=== PATIENT | female | born 1975 | race Caucasian/White ===

== ENCOUNTER → 2019-09-21 12:43 | Outpatient (BNVA) | payer MEDICAID, SELFPAY | PROVIDERS: Family Provider Internal Medicine; Visit Provider Psychiatry & Neurology Psychiatry | DX: F43.12 Post-traumatic stress disorder, chronic (principal); F33.2 Major depressive disorder, recurrent severe without psychotic features; F41.1 Generalized anxiety disorder | CPT/HCPCS: 99205 ==

== ENCOUNTER → 2019-10-19 07:51 | Outpatient (BNVA) | payer MEDICAID, SELFPAY | PROVIDERS: Family Provider Internal Medicine; Visit Provider Nurse Practitioner Psychiatric/Mental Health | DX: F43.12 Post-traumatic stress disorder, chronic (principal); F41.1 Generalized anxiety disorder; F33.1 Major depressive disorder, recurrent, moderate | CPT/HCPCS: 99213 ==

== ENCOUNTER 2019-11-09 13:49 | Outpatient (CLI) | payer MEDICAID, SELFPAY ==
--- NOTE | 2019-11-09 14:00 | XRR_ITS ---
PROCEDURE INFORMATION: Exam: XR Left Humerus Exam date and time: 11/09/2019 2:25 PM Age: 43 years old Clinical indication: Pain; Upper arm; Left; Additional info: Left arm pain TECHNIQUE: Imaging protocol: XR Left humerus Views: 2 or more views. COMPARISON: No relevant prior studies available. FINDINGS: Bones/joints: Unusual contour involving the greater tuberosity. A nondisplaced fracture is not excluded. The remainder of the humerus is intact. No dislocation. Soft tissues: No acute soft tissue abnormality. XR/[place] [id number] IMPRESSION: Possible proximal humeral fracture. Consider further evaluation with CT scan.
== END 2019-11-09 13:50 | disposition home or self-care (01) ==
LOC: RAD 13:53
PROVIDERS: PCP Internal Medicine; Visit Provider Nurse Practitioner Family
DX: M79.602 Pain in left arm (principal)
CPT/HCPCS: 73060

== ENCOUNTER → 2019-11-18 07:58 | Outpatient (BNVA) | payer MEDICAID, SELFPAY | PROVIDERS: PCP Internal Medicine; Visit Provider Nurse Practitioner Psychiatric/Mental Health | DX: F33.1 Major depressive disorder, recurrent, moderate (principal); F41.1 Generalized anxiety disorder; F43.12 Post-traumatic stress disorder, chronic | CPT/HCPCS: 99213 ==

== ENCOUNTER 2019-11-24 10:07 | Outpatient (CLI) | payer MEDICAID, SELFPAY ==
--- NOTE | 2019-11-24 10:26 | XRR_ITS ---
PROCEDURE INFORMATION: Exam: XR Left Shoulder Exam date and time: 11/24/2019 10:50 AM Age: 43 years old Clinical indication: Condition or disease; Patient HX: Follow up left proximal humerus FX. Previous XR 11/09/19 TECHNIQUE: Imaging protocol: XR Left shoulder. Views: AP internal and external rotation views, and a scapular Y view of the left shoulder. COMPARISON: [place] [id number] 11/09/2019 2:23:52 PM FINDINGS: Bones/joints: Posterior periosteal reaction at the proximal humeral greater tuberosity adjacent to the previously demonstrated mildly comminuted and mildly depressed fracture of the tuberosity. Normal alignment. Soft tissues: Normal. XR/XR shoulder LT min 2V* [id number] IMPRESSION: Healing proximal humeral fracture.
== END 2019-11-24 10:08 | disposition home or self-care (01) ==
PROVIDERS: PCP Internal Medicine; Visit Provider Specialist
DX: S42.202A Unspecified fracture of upper end of left humerus, initial encounter for closed fracture (principal); X58.XXXA Exposure to other specified factors, initial encounter
CPT/HCPCS: 73030

== ENCOUNTER → 2019-12-15 08:16 | Outpatient (BNVA) | payer MEDICAID, SELFPAY | PROVIDERS: PCP Internal Medicine; Visit Provider Counselor Professional | DX: Z63.4 Disappearance and death of family member (principal); F43.12 Post-traumatic stress disorder, chronic; F33.1 Major depressive disorder, recurrent, moderate; F41.1 Generalized anxiety disorder | CPT/HCPCS: 90832 ==

== ENCOUNTER → 2019-12-16 09:21 | Outpatient (BNVA) | payer MEDICAID, SELFPAY | PROVIDERS: PCP Internal Medicine; Visit Provider Nurse Practitioner Psychiatric/Mental Health | DX: F33.1 Major depressive disorder, recurrent, moderate (principal); F41.1 Generalized anxiety disorder; F43.12 Post-traumatic stress disorder, chronic | CPT/HCPCS: 99212 ==

== ENCOUNTER → 2019-12-27 11:47 | Outpatient (BNVA) | payer MEDICAID, SELFPAY | PROVIDERS: PCP Internal Medicine; Visit Provider Specialist | DX: S42.202D Unspecified fracture of upper end of left humerus, subsequent encounter for fracture with routine healing (principal); X58.XXXD Exposure to other specified factors, subsequent encounter | CPT/HCPCS: 73030 ==

== ENCOUNTER → 2020-01-05 14:16 | Outpatient (BNVA) | payer MEDICAID, SELFPAY | PROVIDERS: PCP Internal Medicine; Visit Provider Specialist | DX: S42.202A Unspecified fracture of upper end of left humerus, initial encounter for closed fracture (principal); M25.561 Pain in right knee; M25.562 Pain in left knee | CPT/HCPCS: 73560; 73565 ==

== ENCOUNTER 2020-01-24 17:57 | Emergency (ER) | payer MEDICAID, SELFPAY ==
[2020-01-24] VITALS (8 sets, daily range): BP systolic 137–170; BP diastolic 72–106; PULSE 60–69; RESP 14–16; TEMP 36.7; O2SAT 92–96; BMI 40.8
[2020-01-24 18:32] LABS: ABG PCO2 50.8 mmHg (35-45); ABG PH Result 7.37 (7.35-7.45); Arterial Blood Gas Hematocrit 39.6 % (37-47); Base Excess ABG 3.2 mmol/L (-2.0-2.0); Blood Gas Allen Test Pos; Blood Gas Operator Identificat CAK; Blood Gas Sample Site Radial, left; Blood Gas Sample Type Arterial; HCO3 ABG 29.4 mmol/L (22-26); Oxygen Device ROOM AIR; PO2 ABG 65.9 mmHg (80.0-100.0)
--- NOTE | 2020-01-24 18:43 | W.ED.GENADLT ---
Documented by User: Forrest Lewis DO 01/25/20 06:56 HPI - General Adult General: Chief complaint: General Medical Stated complaint: HIGH BS/AMS Time Seen by Provider: 01/24/20 18:30 History of Present Illness: HPI narrative: 44-year-old female presents complaining of 2 days of generally not feeling well poor appetite cough she is not had a fever has had a headache and myalgias. Interestingly she tested positive exam almost exactly to the day 3 months ago on what I presume was a PCR COVID test. She has had some mild cough although some nonproductive. She has not had any diarrhea. She not been around any other positives that she knows of. Onset (ago): day(s) Severity: moderate Quality: aching Relieving factors: none Exacerbating factors: none Associated symptoms: Reports cough, decreased appetite, dyspnea, malaise, nausea and weakness; Deny chest pain, confusion, fevers/chills, headache(s), rash, palpitations, seizures, short of breath, syncope or vomiting Treatments prior to arrival: none Review of Systems Const: Reports: malaise ENMT: Denies: throat pain, ear or mastoid pain, nasal discharge or nasal congestion Card: Denies: chest pain, palpitations or syncope Resp: Reports: dyspnea GI: Reports: nausea; Denies: vomiting : Denies: flank pain, difficulty voiding, dysuria, urinary frequency or urinary urgency Skin/Breast: Denies: rash or pruritus Neuro: Denies: headache(s) or confusion PFSH ED PFSH: Medical History Chronic post-traumatic stress disorder (PTSD) Generalized anxiety disorder See subjective information below. Major depressive disorder, recurrent, moderate See subjective information below. Social History Smoking and tobacco status: current every day smoker cigarettes Packs smoked per day: 1 Years cigarettes smoked: 20 Quit status (tobacco): not considering quitting Second hand smoke exposure: No Current gender identity: Female Physical Exam Const: COMMON NORMALS: no acute distress GENERAL APPEARANCE: cooperative and comfortable ORIENTATION/CONSCIOUSNESS: Yes awake, Yes oriented to person, Yes oriented to place and Yes oriented to time HENMT: COMMON NORMALS: normocephalic, atraumatic and hearing grossly normal bilaterally HEAD & SCALP: normocephalic and atraumatic Eye: COMMON NORMALS: Equal, round and reactive pupils present, EOMs intact bilaterally, conjunctivae normal and no scleral icterus CONJUNCTIVA: Yes conjunctivae normal PUPIL: Yes Equal, round and reactive pupils present Neck/C-Spine: COMMON NORMALS: full ROM, no lymphadenopathy, supple and no JVD Lymph: LYMPHATIC: no lymphadenopathy noted and no lymphedema noted Resp: COMMON NORMALS: normal respiratory effort, No retractions, No use of accessory muscles and clear to auscultation bilaterally AUSCULTATION: clear to auscultation bilaterally Cardio: COMMON NORMALS: no JVD, regular rate, regular rhythm and No murmurs present (Cardio) RATE: regular rate RHYTHM: regular rhythm GI: COMMON NORMALS: Soft to palpation and No hepatosplenomegaly present AUSCULTATION: Yes normoactive bowel sounds PALPATION: Yes Soft to palpation, No Tenderness to palpation present (GI), No Guarding due to palpation present (GI) and Yes No hepatosplenomegaly present Extremity: COMMON NORMALS: normal to inspection, capillary refill normal, no clubbing, cyanosis or edema, no calf tenderness and no pedal edema Neuro: SENSORIUM/ORIENTATION: Yes oriented to person, Yes oriented to place and Yes oriented to time Skin: COMMON NORMALS: no rashes or lesions noted GENERAL SKIN EXAM: no rashes or lesions noted Course Vital Signs: Vital signs: Vital Signs Temperature 98.0 F 01/24/20 18:17 Pulse Rate 62 01/25/20 01:03 Respiratory Rate 14 01/25/20 01:03 Blood Pressure 131/95 01/25/20 01:03 Pulse Oximetry 96 01/25/20 01:03 MDM - General Adult MDM Narrative: Medical decision making narrative: Care turned over to Dr. Huizar at change of shift Lab Data: Labs: Lab Results 01/24/20 01/24/20 01/24/20 Range/Units 18:19 18:21 19:00 WBC 6.8 (4.0-10.0) 10^3/ uL RBC 4.83 (4.1-5.3) 10^6/u L Hgb 13.4 (11.5-15.3) g/dL Hct 42.2 (37.0-47.0) % MCV 87.4 (81-99) fL MCH 27.7 L (28.0-34.0) pg MCHC 31.8 (30.0-36.0) g/dL RDW 13.7 (12.1-15.1) % Plt Count 126 L (130-400) 10^3/c mm MPV 13.0 H (7.4-10.4) fL Neut % (Auto) 57.7 % Lymph % (Auto) 30.6 % Bucks % (Auto) 5.1 % Eos % (Auto) 5.8 % Baso % (Auto) 0.7 % Neut # (Auto) 3.94 (1.8-7.7) 10^3/u L Lymph # (Auto) 2.1 (0.8-4.8) 10^3/u L Bucks # (Auto) 0.4 (0.2-0.9) 10^3/u L Eos # (Auto) 0.4 (0.0-0.8) 10^3/u L Baso # (Auto) 0.1 (0.0-0.1) 10^3/u L Nucleated RBC % (a uto) 0 % Nucleated RBCs # 0.0 /100WBC Specimen Type Arterial Sample Site Radial, left ABG pH 7.37 (7.35-7.45) ABG pCO2 50.8 H (35-45) mmHg ABG pO2 65.9 L (80.0-100.0) mmH g ABG HCO3 29.4 H (22-26) mmol/L ABG Base Excess 3.2 H (-2.0-2.0) mmol/ L Joshua Test Pos Hematocrit 39.6 (37-47) % O2 Delivery Device Room air FiO2 21.0 % Reproduction Specialist ID Cak Sodium (136-145) mmol/L Potassium (3.5-5.1) mmol/L Chloride (98-107) mmol/L Carbon Dioxide (22-29) mmol/L Anion Gap (5-19) BUN (6-20) mg/dL Creatinine (0.5-0.9) mg/dL GFR Calculation (90-130) mL/min Glucose (65-115) mg/dL POC Glucose 316 (70-110) mg/dL Calculated Osmolal ity (285-295) mOsm/k g Lactic Acid (0.5-2.2) mmol/L Calcium (8.5-10.5) mg/dL Total Bilirubin (0.15-1.2) mg/dL AST (0-32) U/L ALT (0-33) U/L Alkaline Phosphata se (35-105) IU/L Lactate Dehydrogen ase (135-214) U/L C-Reactive Protein (0.0-4.9) mg/L Total Protein (6.6-8.7) g/dL Albumin (3.5-5.2) g/dL Globulin (1.3-4.6) g/dL Procalcitonin (0-0.5) ng/mL Urine Color (Yellow) Urine Appearance (CLEAR) Urine pH (5-7) Ur Specific Gravit y (1.005-1.030) Urine Protein (Negative) Urine Glucose (UA) (Normal) Urine Ketones (Negative) Urine Blood (Negative) Urine Nitrate (Negative) Urine Bilirubin (Negative) Urine Urobilinogen (Negative) mg/dL Ur Leukocyte Kaylan ase (Negative) Urine RBC (0-2) /hpf Urine WBC (0-5) /hpf Ur Squamous Epith Cells (0-5) /hpf Amorphous Sediment Urine Bacteria (NONE) /hpf Urine Mucus /hpf Serum Ketones (Negative) Influenza Type A A g (Negative) Influenza Type B A g (Negative) SARS-CoV-2 Ag (Rap id) (Negative) 01/24/20 01/24/20 01/24/20 Range/Units 19:00 19:00 20:27 WBC (4.0-10.0) 10^3/ uL RBC (4.1-5.3) 10^6/u L Hgb (11.5-15.3) g/dL Hct (37.0-47.0) % MCV (81-99) fL MCH (28.0-34.0) pg MCHC (30.0-36.0) g/dL RDW (12.1-15.1) % Plt Count (130-400) 10^3/c mm MPV (7.4-10.4) fL Neut % (Auto) % Lymph % (Auto) % Bucks % (Auto) % Eos % (Auto) % Baso % (Auto) % Neut # (Auto) (1.8-7.7) 10^3/u L Lymph # (Auto) (0.8-4.8) 10^3/u L Bucks # (Auto) (0.2-0.9) 10^3/u L Eos # (Auto) (0.0-0.8) 10^3/u L Baso # (Auto) (0.0-0.1) 10^3/u L Nucleated RBC % (a uto) % Nucleated RBCs # /100WBC Specimen Type Sample Site ABG pH (7.35-7.45) ABG pCO2 (35-45) mmHg ABG pO2 (80.0-100.0) mmH g ABG HCO3 (22-26) mmol/L ABG Base Excess (-2.0-2.0) mmol/ L Joshua Test Hematocrit (37-47) % O2 Delivery Device FiO2 % Reproduction Specialist ID Sodium 133 L (136-145) mmol/L Potassium 4.2 (3.5-5.1) mmol/L Chloride 95 L (98-107) mmol/L Carbon Dioxide 27 (22-29) mmol/L Anion Gap 15.2 (5-19) BUN 13 (6-20) mg/dL Creatinine 0.7 (0.5-0.9) mg/dL GFR Calculation 90.5 (90-130) mL/min Glucose 311 H (65-115) mg/dL POC Glucose 286 (70-110) mg/dL Calculated Osmolal ity 284 L (285-295) mOsm/k g Lactic Acid 1.3 (0.5-2.2) mmol/L Calcium 9.1 (8.5-10.5) mg/dL Total Bilirubin 0.3 (0.15-1.2) mg/dL AST 32 (0-32) U/L ALT 30 (0-33) U/L Alkaline Phosphata se 179 H (35-105) IU/L Lactate Dehydrogen ase 252 H (135-214) U/L C-Reactive Protein 13.9 H (0.0-4.9) mg/L Total Protein 7.6 (6.6-8.7) g/dL Albumin 3.8 (3.5-5.2) g/dL Globulin 3.8 (1.3-4.6) g/dL Procalcitonin 0.06 (0-0.5) ng/mL Urine Color (Yellow) Urine Appearance (CLEAR) Urine pH (5-7) Ur Specific Gravit y (1.005-1.030) Urine Protein (Negative) Urine Glucose (UA) (Normal) Urine Ketones (Negative) Urine Blood (Negative) Urine Nitrate (Negative) Urine Bilirubin (Negative) Urine Urobilinogen (Negative) mg/dL Ur Leukocyte Kaylan ase (Negative) Urine RBC (0-2) /hpf Urine WBC (0-5) /hpf Ur Squamous Epith Cells (0-5) /hpf Amorphous Sediment Urine Bacteria (NONE) /hpf Urine Mucus /hpf Serum Ketones Negative (Negative) Influenza Type A A g (Negative) Influenza Type B A g (Negative) SARS-CoV-2 Ag (Rap id) (Negative) 01/24/20 01/24/20 01/24/20 Range/Units 20:44 21:58 22:38 WBC (4.0-10.0) 10^3/ uL RBC (4.1-5.3) 10^6/u L Hgb (11.5-15.3) g/dL Hct (37.0-47.0) % MCV (81-99) fL MCH (28.0-34.0) pg MCHC (30.0-36.0) g/dL RDW (12.1-15.1) % Plt Count (130-400) 10^3/c mm MPV (7.4-10.4) fL Neut % (Auto) % Lymph % (Auto) % Bucks % (Auto) % Eos % (Auto) % Baso % (Auto) % Neut # (Auto) (1.8-7.7) 10^3/u L Lymph # (Auto) (0.8-4.8) 10^3/u L Bucks # (Auto) (0.2-0.9) 10^3/u L Eos # (Auto) (0.0-0.8) 10^3/u L Baso # (Auto) (0.0-0.1) 10^3/u L Nucleated RBC % (a uto) % Nucleated RBCs # /100WBC Specimen Type Sample Site ABG pH (7.35-7.45) ABG pCO2 (35-45) mmHg ABG pO2 (80.0-100.0) mmH g ABG HCO3 (22-26) mmol/L ABG Base Excess (-2.0-2.0) mmol/ L Joshua Test Hematocrit (37-47) % O2 Delivery Device FiO2 % Reproduction Specialist ID Sodium (136-145) mmol/L Potassium (3.5-5.1) mmol/L Chloride (98-107) mmol/L Carbon Dioxide (22-29) mmol/L Anion Gap (5-19) BUN (6-20) mg/dL Creatinine (0.5-0.9) mg/dL GFR Calculation (90-130) mL/min Glucose (65-115) mg/dL POC Glucose 384 (70-110) mg/dL Calculated Osmolal ity (285-295) mOsm/k g Lactic Acid (0.5-2.2) mmol/L Calcium (8.5-10.5) mg/dL Total Bilirubin (0.15-1.2) mg/dL AST (0-32) U/L ALT (0-33) U/L Alkaline Phosphata se (35-105) IU/L Lactate Dehydrogen ase (135-214) U/L C-Reactive Protein (0.0-4.9) mg/L Total Protein (6.6-8.7) g/dL Albumin (3.5-5.2) g/dL Globulin (1.3-4.6) g/dL Procalcitonin (0-0.5) ng/mL Urine Color (Yellow) Urine Appearance (CLEAR) Urine pH (5-7) Ur Specific Gravit y (1.005-1.030) Urine Protein (Negative) Urine Glucose (UA) (Normal) Urine Ketones (Negative) Urine Blood (Negative) Urine Nitrate (Negative) Urine Bilirubin (Negative) Urine Urobilinogen (Negative) mg/dL Ur Leukocyte Kaylan ase (Negative) Urine RBC (0-2) /hpf Urine WBC (0-5) /hpf Ur Squamous Epith Cells (0-5) /hpf Amorphous Sediment Urine Bacteria (NONE) /hpf Urine Mucus /hpf Serum Ketones (Negative) Influenza Type A A g Negative (Negative) Influenza Type B A g Negative (Negative) SARS-CoV-2 Ag (Rap id) Negative (Negative) 01/24/20 01/25/20 Range/Units 23:23 00:13 WBC (4.0-10.0) 10^3/ uL RBC (4.1-5.3) 10^6/u L Hgb (11.5-15.3) g/dL Hct (37.0-47.0) % MCV (81-99) fL MCH (28.0-34.0) pg MCHC (30.0-36.0) g/dL RDW (12.1-15.1) % Plt Count (130-400) 10^3/c mm MPV (7.4-10.4) fL Neut % (Auto) % Lymph % (Auto) % Bucks % (Auto) % Eos % (Auto) % Baso % (Auto) % Neut # (Auto) (1.8-7.7) 10^3/u L Lymph # (Auto) (0.8-4.8) 10^3/u L Bucks # (Auto) (0.2-0.9) 10^3/u L Eos # (Auto) (0.0-0.8) 10^3/u L Baso # (Auto) (0.0-0.1) 10^3/u L Nucleated RBC % (a uto) % Nucleated RBCs # /100WBC Specimen Type Sample Site ABG pH (7.35-7.45) ABG pCO2 (35-45) mmHg ABG pO2 (80.0-100.0) mmH g ABG HCO3 (22-26) mmol/L ABG Base Excess (-2.0-2.0) mmol/ L Joshua Test Hematocrit (37-47) % O2 Delivery Device FiO2 % Reproduction Specialist ID Sodium (136-145) mmol/L Potassium (3.5-5.1) mmol/L Chloride (98-107) mmol/L Carbon Dioxide (22-29) mmol/L Anion Gap (5-19) BUN (6-20) mg/dL Creatinine (0.5-0.9) mg/dL GFR Calculation (90-130) mL/min Glucose (65-115) mg/dL POC Glucose 237 (70-110) mg/dL Calculated Osmolal ity (285-295) mOsm/k g Lactic Acid (0.5-2.2) mmol/L Calcium (8.5-10.5) mg/dL Total Bilirubin (0.15-1.2) mg/dL AST (0-32) U/L ALT (0-33) U/L Alkaline Phosphata se (35-105) IU/L Lactate Dehydrogen ase (135-214) U/L C-Reactive Protein (0.0-4.9) mg/L Total Protein (6.6-8.7) g/dL Albumin (3.5-5.2) g/dL Globulin (1.3-4.6) g/dL Procalcitonin (0-0.5) ng/mL Urine Color Yellow (Yellow) Urine Appearance Sl hazy (CLEAR) Urine pH 5 (5-7) Ur Specific Gravit y 1.020 (1.005-1.030) Urine Protein Neg (Negative) Urine Glucose (UA) 4+ H (Normal) Urine Ketones Negative (Negative) Urine Blood Neg (Negative) Urine Nitrate Negative (Negative) Urine Bilirubin Neg (Negative) Urine Urobilinogen Norm (Negative) mg/dL Ur Leukocyte Kaylan ase Negative (Negative) Urine RBC 0-4 H (0-2) /hpf Urine WBC 0-4 H (0-5) /hpf Ur Squamous Epith Cells 10-15 H (0-5) /hpf Amorphous Sediment Not Reportable Urine Bacteria 1+ H (NONE) /hpf Urine Mucus 1+ /hpf Serum Ketones (Negative) Influenza Type A A g (Negative) Influenza Type B A g (Negative) SARS-CoV-2 Ag (Rap id) (Negative) Discharge Plan Discharge Patient Disposition: Home Clinical Impression: Acute viral syndrome Condition: Stable Prescriptions: New Zithromax Z-Dominic 250 mg tablet See Rx Instructions .ROUTE .COMPLEX Qty: 6 RF: 0 Tessalon Perles 100 mg capsule 200 mg PO TID PRN (Reason: cough) Qty: 60 RF: 0 No Action hydrocodone-acetaminophen 10-325 mg tablet 1 tab PO QID PRN (Reason: Pain) RF: 0 insulin aspart U-100 [Novolog Flexpen U-100 Insulin] 100 unit/mL (3 mL) insulin pen 15 unit SUBCUT TID RF: 0 Lantus Solostar U-100 Insulin 100 unit/mL (3 mL) insulin pen 66 unit SUBCUT BEDTIME RF: 0 levomefolate calcium [L-Methylfolate] 15 mg tablet 15 mg PO DAILY Qty: 30 RF: 1 alprazolam [Xanax] 0.5 mg tablet 0.5 mg PO QID PRN (Reason: anxiety) 30 Days Qty: 120 RF: 2 lisinopril 5 mg tablet 5 mg PO DAILY RF: 0 duloxetine 60 mg capsule, delayed rel sprinkle 60 mg PO DAILY RF: 0 levothyroxine 75 mcg capsule 75 mcg PO DAILY RF: 0 metoprolol succinate 25 mg capsule,sprinkle,ER 24hr 25 mg PO BID RF: 0 (DME) shoulder immobilizer See Rx Instructions .Route .MEDSUPPLY Qty: 1 RF: 0 meloxicam 15 mg tablet 15 mg PO DAILY Qty: 30 RF: 0 Lipitor 40 mg Tablet 40 mg PO BEDTIME RF: 0 donepezil 10 mg Tablet 10 mg PO BEDTIME RF: 0 trazodone 150 mg tablet 150 - 300 mg PO BEDTIME PRN (Reason: Sleep) RF: 0 Drisdol 1,250 mcg (50,000 unit) capsule 1,250 mcg PO Q7D RF: 0 Lexapro 10 mg tablet 10 mg PO QAM RF: 0 cyanocobalamin (vitamin B-12) 1,000 mcg/mL kit 1,000 mcg IM Q30D RF: 0 Discharge Orders: Discharge Order (Routine); Ordered 01/25/20 Ordered By: Desiree Ricks Referrals: Justina Mazariegos DO [Primary Care Provider] - 1-3 days Desiree Ricks [Emergency Provider] - Discharge Diet: Advance as tolerated Discharge Activity: Increase activity as tolerated Patient Instructions: Viral Syndrome (ED) Activity Restrictions/Additional Instructions: Please return to the ER immediately for any of the signs or symptoms listed on your discharge instruction sheets, worsening/changing of your symptoms, you are not getting better as quickly as expected, or for ANY other cause or concerns. Please return to the ER for worsening of your symptoms, new onset of fever, vomiting, weakness, or for any other cause for concern. Stand Alone Forms: Work/School Release Discharge Date/Time: 01/25/20 01:05 Sign Out Sign Out Data: Patient Sign Out occurred on 01/24/20 at 19:44. Patient's care was discussed, and care was transferred from to Desiree Ricks. Coding Level of Care Code ED [employer] Mk1 Operator for Chg Fwd Exam Comprehensive Documented by User: Desiree Ricks 01/25/20 00:15 HPI - General Adult General: Chief complaint: General Medical Stated complaint: HIGH BS/AMS Time Seen by Provider: 01/24/20 18:30 [facility] PFSH: Medical History Chronic post-traumatic stress disorder (PTSD) Generalized anxiety disorder See subjective information below. Major depressive disorder, recurrent, moderate See subjective information below. Social History Smoking and tobacco status: current every day smoker cigarettes Packs smoked per day: 1 Years cigarettes smoked: 20 Quit status (tobacco): not considering quitting Second hand smoke exposure: No Current gender identity: Female Procedures EJ/Peripheral Line Arm R: Time Out Performed: Yes Skin Cleansed in Sterile Fashion: Yes Size (gauge): 18 IV Secured and Dressing Applied: Yes Patient Tolerated Procedure: well Additional Comments: Ultrasound was utilized throughout the procedure. Course Vital Signs: Vital signs: Vital Signs Temperature 98.0 F 01/24/20 18:17 Pulse Rate 62 01/25/20 01:03 Respiratory Rate 14 01/25/20 01:03 Blood Pressure 131/95 01/25/20 01:03 Pulse Oximetry 96 01/25/20 01:03 MDM - General Adult MDM Narrative: Medical decision making narrative: 2100 -care assumed by me at change of shift from Dr. Lewis. Please see his note for his history, physical exam and medical decision-making notes. The patient states to me for the past 2 days she has been feeling generalized malaise, headache and has had a dry cough. She denies any neck pain or stiffness. Denies any chest pain, shortness of breath or abdominal or back pain. Denies any urinary symptoms or other focal complaint. She states she just feels weak and tired. Of note the patient was positive for COVID 3 months ago but states that she did recover from this. At this time she states she just feels tired and fatigued. 2316 -patient is up and ambulating without any sign of lightheadedness, dizziness and she is steady on her feet without any difficulties. 0012 -the patient is now feeling much better and is ready to go home. She is finishing a bag of fluids. Urinalysis negative. She otherwise feeling better and is ready to go home. She agrees to try some azithromycin for her cough. She agrees to return if her symptoms change or worsen but at this time she is feeling better and is ready for discharge. There is no sign of DKA, focal pneumonia, Covid infection or UTI at this time. Lab Data: Labs: Lab Results 01/24/20 01/24/20 01/24/20 Range/Units 18:19 18:21 19:00 WBC 6.8 (4.0-10.0) 10^3/ uL RBC 4.83 (4.1-5.3) 10^6/u L Hgb 13.4 (11.5-15.3) g/dL Hct 42.2 (37.0-47.0) % MCV 87.4 (81-99) fL MCH 27.7 L (28.0-34.0) pg MCHC 31.8 (30.0-36.0) g/dL RDW 13.7 (12.1-15.1) % Plt Count 126 L (130-400) 10^3/c mm MPV 13.0 H (7.4-10.4) fL Neut % (Auto) 57.7 % Lymph % (Auto) 30.6 % Bucks % (Auto) 5.1 % Eos % (Auto) 5.8 % Baso % (Auto) 0.7 % Neut # (Auto) 3.94 (1.8-7.7) 10^3/u L Lymph # (Auto) 2.1 (0.8-4.8) 10^3/u L Bucks # (Auto) 0.4 (0.2-0.9) 10^3/u L Eos # (Auto) 0.4 (0.0-0.8) 10^3/u L Baso # (Auto) 0.1 (0.0-0.1) 10^3/u L Nucleated RBC % (a uto) 0 % Nucleated RBCs # 0.0 /100WBC Specimen Type Arterial Sample Site Radial, left ABG pH 7.37 (7.35-7.45) ABG pCO2 50.8 H (35-45) mmHg ABG pO2 65.9 L (80.0-100.0) mmH g ABG HCO3 29.4 H (22-26) mmol/L ABG Base Excess 3.2 H (-2.0-2.0) mmol/ L Joshua Test Pos Hematocrit 39.6 (37-47) % O2 Delivery Device Room air FiO2 21.0 % Reproduction Specialist ID Cak Sodium (136-145) mmol/L Potassium (3.5-5.1) mmol/L Chloride (98-107) mmol/L Carbon Dioxide (22-29) mmol/L Anion Gap (5-19) BUN (6-20) mg/dL Creatinine (0.5-0.9) mg/dL GFR Calculation (90-130) mL/min Glucose (65-115) mg/dL POC Glucose 316 (70-110) mg/dL Calculated Osmolal ity (285-295) mOsm/k g Lactic Acid (0.5-2.2) mmol/L Calcium (8.5-10.5) mg/dL Total Bilirubin (0.15-1.2) mg/dL AST (0-32) U/L ALT (0-33) U/L Alkaline Phosphata se (35-105) IU/L Lactate Dehydrogen ase (135-214) U/L C-Reactive Protein (0.0-4.9) mg/L Total Protein (6.6-8.7) g/dL Albumin (3.5-5.2) g/dL Globulin (1.3-4.6) g/dL Procalcitonin (0-0.5) ng/mL Urine Color (Yellow) Urine Appearance (CLEAR) Urine pH (5-7) Ur Specific Gravit y (1.005-1.030) Urine Protein (Negative) Urine Glucose (UA) (Normal) Urine Ketones (Negative) Urine Blood (Negative) Urine Nitrate (Negative) Urine Bilirubin (Negative) Urine Urobilinogen (Negative) mg/dL Ur Leukocyte Kaylan ase (Negative) Urine RBC (0-2) /hpf Urine WBC (0-5) /hpf Ur Squamous Epith Cells (0-5) /hpf Amorphous Sediment Urine Bacteria (NONE) /hpf Urine Mucus /hpf Serum Ketones (Negative) Influenza Type A A g (Negative) Influenza Type B A g (Negative) SARS-CoV-2 Ag (Rap id) (Negative) 01/24/20 01/24/20 01/24/20 Range/Units 19:00 19:00 20:27 WBC (4.0-10.0) 10^3/ uL RBC (4.1-5.3) 10^6/u L Hgb (11.5-15.3) g/dL Hct (37.0-47.0) % MCV (81-99) fL MCH (28.0-34.0) pg MCHC (30.0-36.0) g/dL RDW (12.1-15.1) % Plt Count (130-400) 10^3/c mm MPV (7.4-10.4) fL Neut % (Auto) % Lymph % (Auto) % Bucks % (Auto) % Eos % (Auto) % Baso % (Auto) % Neut # (Auto) (1.8-7.7) 10^3/u L Lymph # (Auto) (0.8-4.8) 10^3/u L Bucks # (Auto) (0.2-0.9) 10^3/u L Eos # (Auto) (0.0-0.8) 10^3/u L Baso # (Auto) (0.0-0.1) 10^3/u L Nucleated RBC % (a uto) % Nucleated RBCs # /100WBC Specimen Type Sample Site ABG pH (7.35-7.45) ABG pCO2 (35-45) mmHg ABG pO2 (80.0-100.0) mmH g ABG HCO3 (22-26) mmol/L ABG Base Excess (-2.0-2.0) mmol/ L Joshua Test Hematocrit (37-47) % O2 Delivery Device FiO2 % Reproduction Specialist ID Sodium 133 L (136-145) mmol/L Potassium 4.2 (3.5-5.1) mmol/L Chloride 95 L (98-107) mmol/L Carbon Dioxide 27 (22-29) mmol/L Anion Gap 15.2 (5-19) BUN 13 (6-20) mg/dL Creatinine 0.7 (0.5-0.9) mg/dL GFR Calculation 90.5 (90-130) mL/min Glucose 311 H (65-115) mg/dL POC Glucose 286 (70-110) mg/dL Calculated Osmolal ity 284 L (285-295) mOsm/k g Lactic Acid 1.3 (0.5-2.2) mmol/L Calcium 9.1 (8.5-10.5) mg/dL Total Bilirubin 0.3 (0.15-1.2) mg/dL AST 32 (0-32) U/L ALT 30 (0-33) U/L Alkaline Phosphata se 179 H (35-105) IU/L Lactate Dehydrogen ase 252 H (135-214) U/L C-Reactive Protein 13.9 H (0.0-4.9) mg/L Total Protein 7.6 (6.6-8.7) g/dL Albumin 3.8 (3.5-5.2) g/dL Globulin 3.8 (1.3-4.6) g/dL Procalcitonin 0.06 (0-0.5) ng/mL Urine Color (Yellow) Urine Appearance (CLEAR) Urine pH (5-7) Ur Specific Gravit y (1.005-1.030) Urine Protein (Negative) Urine Glucose (UA) (Normal) Urine Ketones (Negative) Urine Blood (Negative) Urine Nitrate (Negative) Urine Bilirubin (Negative) Urine Urobilinogen (Negative) mg/dL Ur Leukocyte Kaylan ase (Negative) Urine RBC (0-2) /hpf Urine WBC (0-5) /hpf Ur Squamous Epith Cells (0-5) /hpf Amorphous Sediment Urine Bacteria (NONE) /hpf Urine Mucus /hpf Serum Ketones Negative (Negative) Influenza Type A A g (Negative) Influenza Type B A g (Negative) SARS-CoV-2 Ag (Rap id) (Negative) 01/24/20 01/24/20 01/24/20 Range/Units 20:44 21:58 22:38 WBC (4.0-10.0) 10^3/ uL RBC (4.1-5.3) 10^6/u L Hgb (11.5-15.3) g/dL Hct (37.0-47.0) % MCV (81-99) fL MCH (28.0-34.0) pg MCHC (30.0-36.0) g/dL RDW (12.1-15.1) % Plt Count (130-400) 10^3/c mm MPV (7.4-10.4) fL Neut % (Auto) % Lymph % (Auto) % Bucks % (Auto) % Eos % (Auto) % Baso % (Auto) % Neut # (Auto) (1.8-7.7) 10^3/u L Lymph # (Auto) (0.8-4.8) 10^3/u L Bucks # (Auto) (0.2-0.9) 10^3/u L Eos # (Auto) (0.0-0.8) 10^3/u L Baso # (Auto) (0.0-0.1) 10^3/u L Nucleated RBC % (a uto) % Nucleated RBCs # /100WBC Specimen Type Sample Site ABG pH (7.35-7.45) ABG pCO2 (35-45) mmHg ABG pO2 (80.0-100.0) mmH g ABG HCO3 (22-26) mmol/L ABG Base Excess (-2.0-2.0) mmol/ L Joshua Test Hematocrit (37-47) % O2 Delivery Device FiO2 % Reproduction Specialist ID Sodium (136-145) mmol/L Potassium (3.5-5.1) mmol/L Chloride (98-107) mmol/L Carbon Dioxide (22-29) mmol/L Anion Gap (5-19) BUN (6-20) mg/dL Creatinine (0.5-0.9) mg/dL GFR Calculation (90-130) mL/min Glucose (65-115) mg/dL POC Glucose 384 (70-110) mg/dL Calculated Osmolal ity (285-295) mOsm/k g Lactic Acid (0.5-2.2) mmol/L Calcium (8.5-10.5) mg/dL Total Bilirubin (0.15-1.2) mg/dL AST (0-32) U/L ALT (0-33) U/L Alkaline Phosphata se (35-105) IU/L Lactate Dehydrogen ase (135-214) U/L C-Reactive Protein (0.0-4.9) mg/L Total Protein (6.6-8.7) g/dL Albumin (3.5-5.2) g/dL Globulin (1.3-4.6) g/dL Procalcitonin (0-0.5) ng/mL Urine Color (Yellow) Urine Appearance (CLEAR) Urine pH (5-7) Ur Specific Gravit y (1.005-1.030) Urine Protein (Negative) Urine Glucose (UA) (Normal) Urine Ketones (Negative) Urine Blood (Negative) Urine Nitrate (Negative) Urine Bilirubin (Negative) Urine Urobilinogen (Negative) mg/dL Ur Leukocyte Kaylan ase (Negative) Urine RBC (0-2) /hpf Urine WBC (0-5) /hpf Ur Squamous Epith Cells (0-5) /hpf Amorphous Sediment Urine Bacteria (NONE) /hpf Urine Mucus /hpf Serum Ketones (Negative) Influenza Type A A g Negative (Negative) Influenza Type B A g Negative (Negative) SARS-CoV-2 Ag (Rap id) Negative (Negative) 01/24/20 01/25/20 Range/Units 23:23 00:13 WBC (4.0-10.0) 10^3/ uL RBC (4.1-5.3) 10^6/u L Hgb (11.5-15.3) g/dL Hct (37.0-47.0) % MCV (81-99) fL MCH (28.0-34.0) pg MCHC (30.0-36.0) g/dL RDW (12.1-15.1) % Plt Count (130-400) 10^3/c mm MPV (7.4-10.4) fL Neut % (Auto) % Lymph % (Auto) % Bucks % (Auto) % Eos % (Auto) % Baso % (Auto) % Neut # (Auto) (1.8-7.7) 10^3/u L Lymph # (Auto) (0.8-4.8) 10^3/u L [place] # (Auto) (0.2-0.9) 10^3/u L Eos # (Auto) (0.0-0.8) 10^3/u L Baso # (Auto) (0.0-0.1) 10^3/u L Nucleated RBC % (a uto) % Nucleated RBCs # /100WBC Specimen Type Sample Site ABG pH (7.35-7.45) ABG pCO2 (35-45) mmHg ABG pO2 (80.0-100.0) mmH g ABG HCO3 (22-26) mmol/L ABG Base Excess (-2.0-2.0) mmol/ L Joshua Test Hematocrit (37-47) % O2 Delivery Device FiO2 % Reproduction Specialist ID Sodium (136-145) mmol/L Potassium (3.5-5.1) mmol/L Chloride (98-107) mmol/L Carbon Dioxide (22-29) mmol/L Anion Gap (5-19) BUN (6-20) mg/dL Creatinine (0.5-0.9) mg/dL GFR Calculation (90-130) mL/min Glucose (65-115) mg/dL POC Glucose 237 (70-110) mg/dL Calculated Osmolal ity (285-295) mOsm/k g Lactic Acid (0.5-2.2) mmol/L Calcium (8.5-10.5) mg/dL Total Bilirubin (0.15-1.2) mg/dL AST (0-32) U/L ALT (0-33) U/L Alkaline Phosphata se (35-105) IU/L Lactate Dehydrogen ase (135-214) U/L C-Reactive Protein (0.0-4.9) mg/L Total Protein (6.6-8.7) g/dL Albumin (3.5-5.2) g/dL Globulin (1.3-4.6) g/dL Procalcitonin (0-0.5) ng/mL Urine Color Yellow (Yellow) Urine Appearance Sl hazy (CLEAR) Urine pH 5 (5-7) Ur Specific Gravit y 1.020 (1.005-1.030) Urine Protein Neg (Negative) Urine Glucose (UA) 4+ H (Normal) Urine Ketones Negative (Negative) Urine Blood Neg (Negative) Urine Nitrate Negative (Negative) Urine Bilirubin Neg (Negative) Urine Urobilinogen Norm (Negative) mg/dL Ur Leukocyte Kaylan ase Negative (Negative) Urine RBC 0-4 H (0-2) /hpf Urine WBC 0-4 H (0-5) /hpf Ur Squamous Epith Cells 10-15 H (0-5) /hpf Amorphous Sediment Not Reportable Urine Bacteria 1+ H (NONE) /hpf Urine Mucus 1+ /hpf Serum Ketones (Negative) Influenza Type A A g (Negative) Influenza Type B A g (Negative) SARS-CoV-2 Ag (Rap id) (Negative) Discharge Plan Discharge Patient Disposition: Home Clinical Impression: Acute viral syndrome Condition: Stable Prescriptions: New Zithromax Z-Dominic 250 mg tablet See Rx Instructions .ROUTE .COMPLEX Qty: 6 RF: 0 Tessalon Perles 100 mg capsule 200 mg PO TID PRN (Reason: cough) Qty: 60 RF: 0 No Action hydrocodone-acetaminophen 10-325 mg tablet 1 tab PO QID PRN (Reason: Pain) RF: 0 insulin aspart U-100 [Novolog Flexpen U-100 Insulin] 100 unit/mL (3 mL) insulin pen 15 unit SUBCUT TID RF: 0 Lantus Solostar U-100 Insulin 100 unit/mL (3 mL) insulin pen 66 unit SUBCUT BEDTIME RF: 0 levomefolate calcium [L-Methylfolate] 15 mg tablet 15 mg PO DAILY Qty: 30 RF: 1 alprazolam [Xanax] 0.5 mg tablet 0.5 mg PO QID PRN (Reason: anxiety) 30 Days Qty: 120 RF: 2 lisinopril 5 mg tablet 5 mg PO DAILY RF: 0 duloxetine 60 mg capsule, delayed rel sprinkle 60 mg PO DAILY RF: 0 levothyroxine 75 mcg capsule 75 mcg PO DAILY RF: 0 metoprolol succinate 25 mg capsule,sprinkle,ER 24hr 25 mg PO BID RF: 0 (DME) shoulder immobilizer See Rx Instructions .Route .MEDSUPPLY Qty: 1 RF: 0 meloxicam 15 mg tablet 15 mg PO DAILY Qty: 30 RF: 0 Lipitor 40 mg Tablet 40 mg PO BEDTIME RF: 0 donepezil 10 mg Tablet 10 mg PO BEDTIME RF: 0 trazodone 150 mg tablet 150 - 300 mg PO BEDTIME PRN (Reason: Sleep) RF: 0 Drisdol 1,250 mcg (50,000 unit) capsule 1,250 mcg PO Q7D RF: 0 Lexapro 10 mg tablet 10 mg PO QAM RF: 0 cyanocobalamin (vitamin B-12) 1,000 mcg/mL kit 1,000 mcg IM Q30D RF: 0 Discharge Orders: Discharge Order (Routine); Ordered 01/25/20 Ordered By: Desiree Ricks Referrals: Justina Mazariegos DO [Primary Care Provider] - 1-3 days Desiree Ricks [Emergency Provider] - Discharge Diet: Advance as tolerated Discharge Activity: Increase activity as tolerated Patient Instructions: Viral Syndrome (ED) Activity Restrictions/Additional Instructions: Please return to the ER immediately for any of the signs or symptoms listed on your discharge instruction sheets, worsening/changing of your symptoms, you are not getting better as quickly as expected, or for ANY other cause or concerns. Please return to the ER for worsening of your symptoms, new onset of fever, vomiting, weakness, or for any other cause for concern. Stand Alone Forms: Work/School Release Discharge Date/Time: 01/25/20 01:05 Sign Out Sign Out Data: Patient Sign Out occurred on 01/24/20 at 19:44. Patient's care was discussed, and care was transferred from to Desiree Ricks. Coding Level of Care Code ED Ship [employer] System Mk1 Operator for Chg Fwd Exam Comprehensive
--- NOTE | 2020-01-24 20:30 | PC.NURSE ---
blood glucose 286
[2020-01-24 20:35] LABS: Glucose Point of Care 286 mg/dL (70-110)
[2020-01-24 21:07] LABS: Basophils # 0.1 10^3/uL (0.0-0.1); Basophils % 0.7 %; Eosinophils # 0.4 10^3/uL (0.0-0.8); Eosinophils % 5.8 %; Hematocrit 42.2 % (37.0-47.0); Hemoglobin 13.4 g/dL (11.5-15.3); Lymphocytes # 2.1 10^3/uL (0.8-4.8); Lymphocytes % 30.6 %; Mean Corpuscular HGB Conc 31.8 g/dL (30.0-36.0); Mean Corpuscular Hemoglobin 27.7 pg (28.0-34.0); Mean Corpuscular Volume 87.4 fL (81-99); Monocytes # 0.4 10^3/uL (0.2-0.9); Monocytes % 5.1 %; Neutrophils # 3.94 10^3/uL (1.8-7.7); Neutrophils % 57.7 %; Nucleated Red Blood Cells % 0 %; Platelet Count 126 10^3/cmm (130-400); Red Blood Count 4.83 10^6/uL (4.1-5.3); Red Cell Distribution Width 13.7 % (12.1-15.1); White Blood Count 6.8 10^3/uL (4.0-10.0)
[2020-01-24] MEDS: sodium chloride 0.9% 1,000 ML 999 ML IV ×2 (21:09→22:29)
[2020-01-24] MEDS: ondansetron 2 mg/ML SDV 2 mL 4 MG IVP ×2 (21:09→22:55)
[2020-01-24 21:29] LABS: Lactic Sepsis W/Reflex 1.3 mmol/L (0.5-2.2)
[2020-01-24 21:30] LABS: Alanine Aminotransferase 30 U/L (0-33); Albumin Level 3.8 g/dL (3.5-5.2); Alkaline Phosphatase 179 IU/L (35-105); Blood Urea Nitrogen 13 mg/dL (6-20); Calcium 9.1 mg/dL (8.5-10.5); Carbon Dioxide 27 mmol/L (22-29); Chloride 95 mmol/L (98-107); Creatinine Clr Calc Pharmacy 121.7691; Globulin 3.8 g/dL (1.3-4.6); Glomerular Filtration Rate 90.5 mL/min (90-130); Glucose 311 mg/dL (65-115); Osmolality Calculated 284 mOsm/kg (285-295); Sodium 133 mmol/L (136-145); Total Bilirubin 0.3 mg/dL (0.15-1.2); Total Protein 7.6 g/dL (6.6-8.7)
[2020-01-24 21:31] LABS: Anion Gap 15.2 (5-19); Aspartate Amino Transferase 32 U/L (0-32); Lactate Dehydrogenase 252 U/L (135-214); Potassium 4.2 mmol/L (3.5-5.1)
[2020-01-24 21:37] LABS: Ketone (Acetest) Serum Negative (Negative)
[2020-01-24 22:04] LABS: Influenza A by IFA Negative (Negative); Influenza B by IFA Negative (Negative)
[2020-01-24 22:11] LABS: Slide Review Slide Review Perform
[2020-01-24 22:20] LABS: SARS Covid-2 Antigen Negative (Negative)
--- NOTE | 2020-01-24 22:38 | XR_ITS ---
WS: [id number] EXAM: AP CHEST: PORTABLE UPRIGHT DATE OF EXAM: 01/24/2020, 2255 hours COMPARISON: Chest x-ray from 09/27/2017 HISTORY: Patient is 44 years old with a cough. FINDINGS: The cardiac silhouette is normal in size. The mediastinal contours are normal. The pulmonary vas cularity is normal. The lungs are clear of infiltrate. There is no effusion or pneumothorax. No ac kaylee bony abnormality is seen. XR/XR chest 1V portable [id number] IMPRESSION: No acute pulmonary disease.
[2020-01-24] MEDS: doxycycline 100 mg Tablet 200 MG PO (22:55)
[2020-01-24] MEDS: ketorolac 30 mg/mL INJ 10 MG IVP (23:00)
[2020-01-24 23:03] LABS: Glucose Point of Care 316 mg/dL (70-110)
[2020-01-24 23:03] LABS: Glucose Point of Care 384 mg/dL (70-110)
--- NOTE | 2020-01-24 23:14 | PC.NURSE ---
patient BLOOD GLUCOSE 384, THIS NURSE GAVE 8 UNITS OF NOVOLOG
[2020-01-25 00:08] LABS: Add Urine Microscopic? YES; Bacteria Urine 1+ /hpf; Bilirubin Urine Neg (Negative); Blood Urine Neg (Negative); Glucose Urine UA 4+ (Normal); Ketones Urine Negative (Negative); Leukocyte Esterase Urine Negative (Negative); Mucus Urine 1+ /hpf; Nitrate Urine Negative (Negative); Protein Urine Neg (Negative); RBC Urine 0-4 /hpf (0-2); Urine Appearance SL Hazy (CLEAR); Urine Color Yellow (Yellow); Urobilinogen Urine Norm (Negative); WBC Urine 0-4 /hpf (0-5); pH Urine 5 (5-7)
[2020-01-25 00:17] LABS: Glucose Point of Care 237 mg/dL (70-110)
[2020-01-25 00:18] VITALS: BP 178/103; PULSE 69; RESP 14; O2SAT 96
[2020-01-25 00:36] LABS: Procalcitonin 0.06 ng/mL (0-0.5)
[2020-01-25 01:03] VITALS: BP 131/95; PULSE 62; RESP 14; O2SAT 96
[2020-01-25 01:19] LABS: C Reactive Protein 13.9 mg/L (0.0-4.9)
--- NOTE | 2020-01-26 09:16 | PC.NURSE ---
1 of 2 blood culture bottles positive for gram positive cocci in clusters. preliminary results given to Dr. Lewis
== END 2020-01-25 01:05 | disposition home or self-care (01) ==
PROVIDERS: Emergency Medicine; Family Medicine; Emergency Provider Emergency Medicine; PCP Internal Medicine
DX: B34.9 Viral infection, unspecified (principal); Z79.4 Long term (current) use of insulin; F17.210 Nicotine dependence, cigarettes, uncomplicated
CPT/HCPCS: 12345; 36416; 36556; 36600; 71045; 80053; 81001; 81003; 82009; 82803; 82962; 83605; 83615; 84145; 85025; 86140; 87040; 87205; 87426; 87804; 96361; 96372; 96374; 96375; 99284; J0131; J1815; J1885; J2405; J7030

== ENCOUNTER 2020-02-14 09:39 | Outpatient (CLI) | payer MEDICAID, SELFPAY ==
--- NOTE | 2020-02-14 09:48 | XR_ITS ---
WS: [id number] XR chest 2V* [id number] REASON FOR EXAM: Coughing for 3 days FINDINGS: The chest is unchanged compared to the previous examination of 01/24/2020. XR/XR chest 2V* [id number] IMPRESSION: No acute abnormality.
== END 2020-02-14 09:40 | disposition home or self-care (01) ==
LOC: RAD 09:44
PROVIDERS: PCP Internal Medicine; Visit Provider Internal Medicine
DX: R05 Cough (principal); R06.2 Wheezing
CPT/HCPCS: 71046

== ENCOUNTER → 2020-02-16 08:42 | Outpatient (BNVA) | payer MEDICAID, SELFPAY | PROVIDERS: PCP Internal Medicine; Visit Provider Counselor Professional | DX: F43.12 Post-traumatic stress disorder, chronic (principal); F41.1 Generalized anxiety disorder; F33.1 Major depressive disorder, recurrent, moderate | CPT/HCPCS: 90834 ==

== ENCOUNTER 2020-02-21 08:00 | Emergency (ER) | payer MEDICAID, SELFPAY ==
[2020-02-21] VITALS (58 sets, daily range): BP systolic 127–206; BP diastolic 81–129; PULSE 57–82; RESP 8–20; TEMP 36.7; O2SAT 92–97; BMI 40.8
--- NOTE | 2020-02-21 08:07 | XR_ITS ---
WS: [id number] PORTABLE CHEST HISTORY: chest pain COMPARISON: 02/14/2020 Lungs are clear and well expanded. No pleural effusion or pneumothorax. Cardiac size: Normal. Mediastinum/Aorta: Normal mediastinum. No osseous abnormality seen. XR/XR chest 1V portable [id number] IMPRESSION: Unremarkable portable chest.
--- NOTE | 2020-02-21 08:08 | ECG_ITS ---
[facility] Test Date: 2020-02-21 Pat Name: Rachel Perez Department: Room: Gender: Female Embedded Nurse: ishan : 1975 Requested By: Forrest Hunt Order Number: [id number] Alejandro MD: Isa Rosario M.D. Measurements Intervals [place] Rate: 63 P: 59 OR: 170 QRS: 56 QRSD: 94 T: 43 QT: 407 QTc: 418 Interpretive Statements SINUS RHYTHM Compared to ECG 09/27/2017 16:29:13 Myocardial infarct finding no longer present Electronically Signed On 02-21-2020 19:52:59 CDT by Isa Rosario M.D. [id number] f
--- NOTE | 2020-02-21 08:51 | W.ED.CHESTPA ---
HPI - Chest Pain General: Chief Complaint: Chest Pain Stated Complaint: CHEST PAIN Time Seen by Provider: 02/21/20 08:05 History of Present Illness: HPI narrative: 44-year-old female presents emergency room with complaint of left-sided chest discomfort as well as elevated blood pressure. For the last month and a half she has been following along with her PCP with blood pressure issues they have been titrating medicines but it continues to be elevated. She has been getting some headaches with that she has no known history of coronary disease she has had some nausea she is also noticed for the last couple of months she has had an increasing cough which her doctors related to her lisinopril. She has not had any fever. No history of stroke. MD complaint: chest heaviness and chest discomfort Onset (ago): hour(s) Timing of current episode: episodic and still present Prior episodes: No Onset: during rest Pain location: left chest Pain radiation: none Severity: moderate Quality: tightness and heaviness Relieving factors: nothing Exacerbating factors: nothing Context: new medications Associated symptoms: Reports nausea; Deny abdominal pain, diaphoresis, dyspnea, fever(s), leg edema, palpitations, sense of impending doom, syncope or vomiting Treatment prior to arrival: none Review of Systems Const: Denies: fever(s) or diaphoresis ENMT: Denies: throat pain, ear or mastoid pain, nasal discharge or nasal congestion Card: Denies: palpitations or syncope Resp: Denies: dyspnea GI: Reports: nausea; Denies: abdominal pain or vomiting : Denies: flank pain, difficulty voiding, dysuria, urinary frequency or urinary urgency Skin/Breast: Denies: rash or pruritus PFSH ED PFSH: Medical History (Updated 02/21/20 @ 14:43 by Forrest Lewis DO) Chronic post-traumatic stress disorder (PTSD) Diabetes mellitus Generalized anxiety disorder See subjective information below. Hyperlipidemia Hypertension Major depressive disorder, recurrent, moderate See subjective information below. Surgical History (Updated 02/21/20 @ 08:55 by Forrest Lewis DO) History of endometrial ablation S/P cholecystectomy Social History Smoking and tobacco status: current every day smoker cigarettes Packs smoked per day: 1 Years cigarettes smoked: 20 Quit status (tobacco): not considering quitting Second hand smoke exposure: No Current gender identity: Female Physical Exam Const: COMMON NORMALS: no acute distress GENERAL APPEARANCE: cooperative and comfortable ORIENTATION/CONSCIOUSNESS: Yes oriented to person, Yes oriented to place and Yes oriented to time HENMT: COMMON NORMALS: normocephalic, atraumatic and hearing grossly normal bilaterally HEAD & SCALP: normocephalic and atraumatic Neck/C-Spine: COMMON NORMALS: no JVD Resp: COMMON NORMALS: normal respiratory effort, No retractions, No use of accessory muscles and clear to auscultation bilaterally AUSCULTATION: clear to auscultation bilaterally Cardio: COMMON NORMALS: no JVD, regular rate, regular rhythm and No murmurs present (Cardio) RATE: regular rate RHYTHM: regular rhythm GI: COMMON NORMALS: Soft to palpation and No hepatosplenomegaly present AUSCULTATION: Yes normoactive bowel sounds PALPATION: Yes Soft to palpation, No Tenderness to palpation present (GI), No Guarding due to palpation present (GI) and Yes No hepatosplenomegaly present Extremity: COMMON NORMALS: normal to inspection, capillary refill normal, no clubbing, cyanosis or edema, no calf tenderness and no pedal edema Neuro: SENSORIUM/ORIENTATION: Yes oriented to person, Yes oriented to place and Yes oriented to time Skin: COMMON NORMALS: no rashes or lesions noted GENERAL SKIN EXAM: no rashes or lesions noted Course Vital Signs: Vital signs: Vital Signs Temperature 98.1 F 02/21/20 08:05 Pulse Rate 71 02/21/20 14:58 Respiratory Rate 20 H 02/21/20 14:58 Blood Pressure 142/92 02/21/20 14:58 Pulse Oximetry 96 02/21/20 14:58 MDM - Chest Pain MDM Narrative: Medical decision making narrative: Initially we focused on lowering the patient's blood pressure to relieve her of her headache we gave her some Tylenol during that time. When her blood pressure got down to the 120s and 130s she was still complaining of a headache and gave her IV Depacon, promethazine, ketorolac. She did not have too much relief of her headache with that. She became very upset she felt that we had not adequately addressed or seriously addressed her problem she complained of several nurses I went to the room with the data warehouse developer and reviewed what we had done why we have done it particularly concerning her headache and her blood pressure and the rationale behind the treatment decisions she found these to be unacceptable and was quite angry. We gave her more medications for headache including Ativan and morphine she did have some improvement of the headache it is still mostly focused to the occipital area CT of the head was done and was unremarkable. Also reviewed with her her work-up for her chest pain her delta troponin is negative her D-dimer is unremarkable and her chest x-ray is clear. Ultimately she was discharged home with promethazine to use as needed for headache breakthrough referral from Vandana through case management to neurology for chronic headaches and added amlodipine 10 mg p.o. daily for her blood pressure. Asked her to follow-up with her primary care provider within the week to review efficacy of the blood pressure medication return if has any further problems. I was unable to discuss with the patient at the time of discharge as I was attending to another patient nurse at discharge. Lab Data: Labs: Lab Results 02/21/20 02/21/20 02/21/20 Range/Units 08:30 08:30 08:30 WBC (4.0-10.0) 10^3/ uL RBC (4.1-5.3) 10^6/u L Hgb (11.5-15.3) g/dL Hct (37.0-47.0) % MCV (81-99) fL MCH (28.0-34.0) pg MCHC (30.0-36.0) g/dL RDW (12.1-15.1) % Plt Count (130-400) 10^3/c mm MPV (7.4-10.4) fL Neut % (Auto) % Lymph % (Auto) % [place] % (Auto) % Eos % (Auto) % Baso % (Auto) % Neut # (Auto) (1.8-7.7) 10^3/u L Lymph # (Auto) (0.8-4.8) 10^3/u L [place] # (Auto) (0.2-0.9) 10^3/u L Eos # (Auto) (0.0-0.8) 10^3/u L Baso # (Auto) (0.0-0.1) 10^3/u L Nucleated RBC % (a uto) % Nucleated RBCs # /100WBC D-Dimer 0.31 (0-0.59) ug/mIFE U Sodium 132 L (136-145) mmol/L Potassium 5.1 (3.5-5.1) mmol/L Chloride 93 L (98-107) mmol/L Carbon Dioxide 28 (22-29) mmol/L Anion Gap 16.1 (5-19) BUN 10 (6-20) mg/dL Creatinine 0.5 (0.5-0.9) mg/dL GFR Calculation 133.4 H (90-130) mL/min Glucose 263 H (65-115) mg/dL Calculated Osmolal ity 282 L (285-295) mOsm/k g Calcium 9.2 (8.5-10.5) mg/dL Total Bilirubin 0.3 (0.15-1.2) mg/dL AST 27 (0-32) U/L ALT 27 (0-33) U/L Alkaline Phosphata se 206 H (35-105) IU/L Troponin T Baselin e 6 (0-10) ng/L Troponin T 120 [place] (0-10) ng/L Delta Troponin T (0-10) ABS# Total Protein 7.1 (6.6-8.7) g/dL Albumin 4.2 (3.5-5.2) g/dL Globulin 2.9 (1.3-4.6) g/dL 02/21/20 02/21/20 Range/Units 09:43 10:30 WBC 9.2 (4.0-10.0) 10^3/ uL RBC 4.54 (4.1-5.3) 10^6/u L Hgb 12.8 (11.5-15.3) g/dL Hct 40.8 (37.0-47.0) % MCV 89.9 (81-99) fL MCH 28.2 (28.0-34.0) pg MCHC 31.4 (30.0-36.0) g/dL RDW 14.2 (12.1-15.1) % Plt Count 212 (130-400) 10^3/c mm MPV 9.9 (7.4-10.4) fL Neut % (Auto) 55.0 % Lymph % (Auto) 34.0 % [place] % (Auto) 5.5 % Eos % (Auto) 4.8 % Baso % (Auto) 0.5 % Neut # (Auto) 5.07 (1.8-7.7) 10^3/u L Lymph # (Auto) 3.1 (0.8-4.8) 10^3/u L [place] # (Auto) 0.5 (0.2-0.9) 10^3/u L Eos # (Auto) 0.4 (0.0-0.8) 10^3/u L Baso # (Auto) 0.1 (0.0-0.1) 10^3/u L Nucleated RBC % (a uto) 0 % Nucleated RBCs # 0.0 /100WBC D-Dimer (0-0.59) ug/mIFE U Sodium (136-145) mmol/L Potassium (3.5-5.1) mmol/L Chloride (98-107) mmol/L Carbon Dioxide (22-29) mmol/L Anion Gap (5-19) BUN (6-20) mg/dL Creatinine (0.5-0.9) mg/dL GFR Calculation (90-130) mL/min Glucose (65-115) mg/dL Calculated Osmolal ity (285-295) mOsm/k g Calcium (8.5-10.5) mg/dL Total Bilirubin (0.15-1.2) mg/dL AST (0-32) U/L ALT (0-33) U/L Alkaline Phosphata se (35-105) IU/L Troponin T Baselin e (0-10) ng/L Troponin T 120 [place] 6.00 (0-10) ng/L Delta Troponin T 0 (0-10) ABS# Total Protein (6.6-8.7) g/dL Albumin (3.5-5.2) g/dL Globulin (1.3-4.6) g/dL Discharge Plan Discharge Patient Disposition: Home Clinical Impression: Chronic post-traumatic stress disorder (PTSD), Diabetes mellitus, Headache, Headache, occipital Condition: Stable Prescriptions: New promethazine 25 mg tablet 12.5 mg PO Q6H PRN (Reason: prn headaches) Qty: 14 RF: 0 amlodipine 10 mg tablet 10 mg PO DAILY Qty: 30 RF: 0 No Action hydrocodone-acetaminophen 10-325 mg tablet 1 tab PO QID PRN (Reason: Pain) RF: 0 insulin aspart U-100 [Novolog Flexpen U-100 Insulin] 100 unit/mL (3 mL) insulin pen 18 unit SUBCUT TID RF: 0 Lantus Solostar U-100 Insulin 100 unit/mL (3 mL) insulin pen 66 unit SUBCUT BEDTIME RF: 0 alprazolam [Xanax] 0.5 mg tablet 0.5 mg PO QID PRN (Reason: anxiety) 30 Days Qty: 120 RF: 2 duloxetine 60 mg capsule, delayed rel sprinkle 60 mg PO DAILY RF: 0 metoprolol succinate 25 mg capsule,sprinkle,ER 24hr 25 mg PO BID RF: 0 meloxicam 15 mg tablet 15 mg PO DAILY Qty: 30 RF: 0 atorvastatin [Lipitor] 40 mg Tablet 40 mg PO BEDTIME RF: 0 donepezil 10 mg Tablet 10 mg PO BEDTIME RF: 0 trazodone 150 mg tablet 150 - 300 mg PO BEDTIME PRN (Reason: Sleep) RF: 0 ergocalciferol (vitamin D2) [Drisdol] 1,250 mcg (50,000 unit) capsule 1,250 mcg PO Q7D RF: 0 escitalopram oxalate [Lexapro] 10 mg tablet 10 mg PO QAM RF: 0 cyanocobalamin (vitamin B-12) 1,000 mcg/mL kit 1,000 mcg IM Q30D RF: 0 gabapentin 600 mg tablet 600 mg PO TID RF: 0 levothyroxine 100 mcg Tablet 100 mcg PO DAILY RF: 0 lisinopril 40 mg tablet 40 mg PO DAILY RF: 0 Discharge Orders: Discharge Order (Routine); Ordered 02/21/20 Ordered By: Forrest Lewis Referrals: Justina Mazariegos DO [Primary Care Provider] - Discharge Diet: Usual diet Discharge Activity: Increase activity as tolerated Activity Restrictions/Additional Instructions: Start amlodipine 10 mg daily to help control your blood pressure. Case management will make an appointment for you to see neurology to help evaluate for the chronic headaches. Follow-up with your primary care doctor to reevaluate blood pressure within the next week. You can use Phenergan as needed for headache rescue as well. Discharge Date/Time: 02/21/20 14:58 Coding Level of Care Code ED Animal Pathology Teacher for Chg Fwd Exam Comprehensive
--- NOTE | 2020-02-21 09:22 | PC.NURSE ---
Addendum entered by Marielena Smith RN 02/21/20 09:24: Wrong patient. Original Note: Report received from LIAM Levi. VS trending, blood infusing without any concerns noted.
[2020-02-21] MEDS: amlodipine 5 mg Tablet PO ×2 (09:38→13:20)
[2020-02-21] MEDS: hyDRALAzine 20 mg/mL INJ 1 mL 10 MG IVP (09:43)
[2020-02-21] MEDS: ondansetron 2 mg/ML SDV 2 mL 4 MG IVP (09:55)
[2020-02-21 09:58] LABS: Albumin Level 4.2 g/dL (3.5-5.2); Alkaline Phosphatase 206 IU/L (35-105); Blood Urea Nitrogen 10 mg/dL (6-20); Calcium 9.2 mg/dL (8.5-10.5); Carbon Dioxide 28 mmol/L (22-29); Chloride 93 mmol/L (98-107); Globulin 2.9 g/dL (1.3-4.6); Glomerular Filtration Rate 133.4 mL/min (90-130); Glucose 263 mg/dL (65-115); Osmolality Calculated 282 mOsm/kg (285-295); Sodium 132 mmol/L (136-145); Total Bilirubin 0.3 mg/dL (0.15-1.2); Total Protein 7.1 g/dL (6.6-8.7)
[2020-02-21 10:00] LABS: Basophils # 0.1 10^3/uL (0.0-0.1); Basophils % 0.5 %; Eosinophils # 0.4 10^3/uL (0.0-0.8); Eosinophils % 4.8 %; Hematocrit 40.8 % (37.0-47.0); Hemoglobin 12.8 g/dL (11.5-15.3); Lymphocytes # 3.1 10^3/uL (0.8-4.8); Mean Corpuscular HGB Conc 31.4 g/dL (30.0-36.0); Mean Corpuscular Hemoglobin 28.2 pg (28.0-34.0); Mean Corpuscular Volume 89.9 fL (81-99); Mean Platelet Volume 9.9 fL (7.4-10.4); Monocytes # 0.5 10^3/uL (0.2-0.9); Monocytes % 5.5 %; Neutrophils # 5.07 10^3/uL (1.8-7.7); Nucleated Red Blood Cells % 0 %; Platelet Count 212 10^3/cmm (130-400); Red Blood Count 4.54 10^6/uL (4.1-5.3); Red Cell Distribution Width 14.2 % (12.1-15.1); White Blood Count 9.2 10^3/uL (4.0-10.0)
[2020-02-21 10:01] LABS: Troponin(5th) Baseline 6 ng/L (0-10)
--- NOTE | 2020-02-21 10:08 | ECG_ITS ---
[facility] Test Date: 2020-02-21 Pat Name: Rachel Perez Department: Room: Gender: Female Jig Worker: : 1975 Requested By: Forrest Hunt Order Number: [id number] Alejandro MD: Isa Rosario M.D. Measurements Intervals [place] Rate: 63 P: 60 [place]: 173 QRS: 68 QRSD: 93 T: 28 QT: 435 QTc: 446 Interpretive Statements SINUS RHYTHM Compared to ECG 02/21/2020 08:07:38 No significant changes Electronically Signed On 02-21-2020 20:17:19 CDT by Isa Rosario M.D. [id number] f
[2020-02-21 10:12] LABS: Anion Gap 16.1 (5-19)
[2020-02-21 10:13] LABS: Alanine Aminotransferase 27 U/L (0-33); Aspartate Amino Transferase 27 U/L (0-32); Potassium 5.1 mmol/L (3.5-5.1)
[2020-02-21] MEDS: acetaminophen 325 mg Tablet 650 MG PO (10:27)
[2020-02-21] MEDS: promethazine 25 mg/mL SDV 1 mL 12.5 MG IM (11:35)
[2020-02-21] MEDS: ketorolac 30 mg/mL INJ IVP (11:39)
[2020-02-21] MEDS: valproic acid inj 500 MG in sodium chloride 0.9% 50 ML 55 MG IV (11:40)
[2020-02-21 11:49] LABS: Troponin 5 2HR Delta 0 ABS# (0-10)
[2020-02-21] MEDS: hyDRALAzine 20 mg/mL INJ 1 mL 5 MG IVP ×2 (11:50→13:26)
[2020-02-21] MEDS: cloNIDine 0.1 mg Tablet PO (12:33)
[2020-02-21 12:48] LABS: D Dimer 0.31 ug/mIFEU (0-0.59)
--- NOTE | 2020-02-21 13:11 | CT_ITS ---
WS: [id number] CT HEAD NONCONTRAST HISTORY: persistent headache TECHNIQUE: Contiguous axial imaging performed through the brain in 2.5 mm imaging. Bone and soft tiss ue windows. Sagittal and coronal reformats reviewed. All CT scans at [facility] use at ast one of these dose optimization techniques: automated exposure control; mA and/or kV adjustment pe r patient size (includes targeted exams where dose is matched to clinical indication); or iterative r econstruction. DLP: 786.1 mGy.cm COMPARISON: 05/15/2017 No acute intracranial hemorrhage, midline shift or mass effect. No atrophy or prior infarcts or herniation. Ventricles: Normal size with no hydrocephalus. Paranasal sinuses: As visualized are clear. Mastoid air cells: Well pneumatized. Calvarium and scalp: Skull is intact with no soft tissue edema or swelling. CT/CT head wo con* [id number] IMPRESSION: Negative head CT.
[2020-02-21] MEDS: morphine 4 mg/mL SDV 1 mL 2 MG IM (13:21)
[2020-02-21] MEDS: LORazepam 2 mg/mL INJ 1 mL IVP (13:26)
[2020-02-21] MEDS: morphine 4 mg/mL SDV 1 mL IVP (14:35)
[2020-02-21 15:34] LABS: Troponin 5 6HR Delta 0 ng/L (0-12)
--- NOTE | 2020-02-22 13:15 | DCPLANNER ---
retail marketing manager had message to schedule a follow up appointment for patient with Dr. Hamm. retail marketing manager called the office of Dr. Hamm, spoke with event coordinator, Abigail. retail marketing manager gave clinic patients information, was told that patients information would be printed and reviewed. Clinic will call patient with appointment information.
--- NOTE | 2020-03-29 07:59 | DCPLANNER ---
Patient has a follow up appointment scheduled for , March 29, 2020 at 2:[address] Hamm. manager mortgage called patient and informed patient of the scheduled appointment.
--- NOTE | 2020-05-12 12:32 | DCPLANNER ---
Patient did attend appointment scheduled for 03.30.[address] Hamm.
== END 2020-02-21 14:58 | disposition home or self-care (01) ==
PROVIDERS: Emergency Provider Family Medicine; PCP Internal Medicine
DX: G44.89 Other headache syndrome (principal); E11.9 Type 2 diabetes mellitus without complications; F43.12 Post-traumatic stress disorder, chronic; Z79.4 Long term (current) use of insulin; E78.5 Hyperlipidemia, unspecified; I10 Essential (primary) hypertension; F17.210 Nicotine dependence, cigarettes, uncomplicated
CPT/HCPCS: 12345; 36415; 70450; 71045; 80053; 84484; 85025; 85378; 93005; 96365; 96366; 96375; 99284; J0360; J1885; J2060; J2270; J2405; J2550

== ENCOUNTER → 2020-03-15 07:57 | Outpatient (BNVA) | payer MEDICAID, SELFPAY | PROVIDERS: PCP Internal Medicine; Visit Provider Counselor Professional | DX: F43.12 Post-traumatic stress disorder, chronic (principal); F41.1 Generalized anxiety disorder; F33.1 Major depressive disorder, recurrent, moderate | CPT/HCPCS: 90834 ==

== ENCOUNTER 2020-03-16 10:41 | Outpatient (CLI) | payer MEDICAID, SELFPAY ==
--- NOTE | 2020-03-16 10:45 | USCV_ITS ---
Андрейkiki Rachel Age: 44 Gender: F : 1975 Exam Date: 03/16/2020 10:58 Ordering Phys: Oscar Galindo NP Technologist: Janet Julian Exam Location: [facility] [place]_ Indication: CARDIAC MURMUR BP: 126 / 70 HR: 63 Rhythm: Sinus Technical Quality: Adequate MEASUREMENTS (Male / Female) Normal Values 2D ECHO LV Diastolic Diameter PLAX 4.1 cm 4.2 - 5.9 / 3.9 - 5.3 cm LV Systolic Diameter PLAX 2.5 cm LV Chamber Size 4.3 cm IVS Diastolic Thickness 1.3 cm 0.6 - 1.0 / 0.6 - 0.9 cm IVS Systolic Thickness 1.4 cm LVPW Diastolic Thickness 1.2 cm 0.6 - 1.0 / 0.6 - 0.9 cm LVPW Systolic Thickness 1.9 cm RV Chamber Size 2.0 cm LVOT Diameter 2.1 cm LV Ejection Fraction 2D Teich 69.8 % LV Ejection Fraction MOD 2C 57.2 % LV Ejection Fraction 2C AL 54.6 % LA Diameter 3.9 cm LA Width 3.1 cm LA Height 4.6 cm RA Width 2.5 cm RA Height 4.5 cm Aorta at Sinotubular Diameter 2.4 cm M-MODE LV Diastolic Diameter MM 4.4 cm 4.2 - 5.9 / 3.9 - 5.3 cm LV Systolic Diameter MM 2.6 cm LV Ejection Fraction MM Teich 71.4 % IVS Diastolic Thickness MM 1.5 cm 0.6 - 1.0 / 0.6 - 0.9 cm IVS Systolic Thickness MM 1.8 cm LVPW Diastolic Thickness MM 1.3 cm 0.6 - 1.0 / 0.6 - 0.9 cm LVPW Systolic Thickness MM 1.9 cm RV Diastolic Diameter MM 1.6 cm Aortic Annulus Diameter 2.8 cm LA Ao Ratio MM 1.4 MV E Point Septal Separation 0.4 cm DOPPLER AV Peak Velocity 161.0 cm/s LVOT Peak Velocity 94.0 cm/s AV Area Cont Eq vti 2.0 cm squared AV Area Cont Eq pk 2.0 cm squared MV Area PHT 3.6 cm squared Mitral E to A Ratio 1.3 MV E' Velocity 54.5 cm/s Mitral E to MV E' Ratio 10.9 Mitral E to LV E' Lateral Ratio 10.3 Mitral E to LV E' Septal Ratio 11.9 TV Peak E Velocity 68.0 cm/s Right Atrial Pressure 3.0 mmHg PV Peak Velocity 77.0 cm/s RV Acceleration Time 0.1 s RV Ejection Time 0.3 s RV AcT/ET 0.3 FINDINGS Left Ventricle Normal left ventricular cavity size. Normal left ventricular systolic function. No regional wall motion abnormalities. Left ventricular ejection fraction is estimated at 60 %. Normal diastolic function. Right Ventricle The right ventricle is normal in size and function. RVSP could not be calculated due to incomplete tricuspid regurgitation velocity profile. Right Atrium The right atrium is normal in size. Left Atrium The left atrium is normal in size. Mitral Valve Mildly thickened mitral valve. No mitral valve stenosis. Mild mitral valve regurgitation. Aortic Valve Mild aortic valve calcification. No aortic valve stenosis. No aortic valve regurgitation. Tricuspid Valve Structurally normal tricuspid valve without significant stenosis or regurgitation. Pulmonary artery systolic pressure is normal. Pulmonic Valve Structurally normal pulmonic valve without significant stenosis. There is no pulmonic regurgitation. Pericardium Normal pericardium without effusion. Aorta Normal ascending aorta dimension. CONCLUSIONS 1-Normal left ventricular cavity size. Normal left ventricular systolic function. No regional wall motion abnormalities. Left ventricular ejection fraction is estimated at 60 %. Normal diastolic function. 2-Mild aortic valve calcification. No aortic valve stenosis. No aortic valve regurgitation. 3-There is no pericardial effusion. 4-The right ventricle is normal in size and function. RVSP could not be calculated due to incomplete tricuspid regurgitation velocity profile. 5-Right atrial pressure is around 5 mm of mercury. 6-There are no prior echocardiogram studies to compare. Pedro Austin MD (Electronically Signed) Final Date: 16 March 2020 19:43 S
== END 2020-03-16 10:42 | disposition home or self-care (01) ==
LOC: RAD 10:42
PROVIDERS: PCP Internal Medicine; Visit Provider Nurse Practitioner Family
DX: R01.1 Cardiac murmur, unspecified (principal); I70.0 Atherosclerosis of aorta
CPT/HCPCS: 93306

== ENCOUNTER → 2020-03-23 08:46 | Outpatient (BNVA) | payer MEDICAID, SELFPAY | PROVIDERS: PCP Internal Medicine; Visit Provider Nurse Practitioner Psychiatric/Mental Health | DX: F33.1 Major depressive disorder, recurrent, moderate (principal); F41.1 Generalized anxiety disorder; F43.12 Post-traumatic stress disorder, chronic | CPT/HCPCS: 99212 ==

== ENCOUNTER → 2020-03-30 14:16 | Outpatient (BNVA) | payer MEDICAID, SELFPAY | PROVIDERS: PCP Internal Medicine; Visit Provider Specialist | DX: G43.711 Chronic migraine without aura, intractable, with status migrainosus (principal); G31.84 Mild cognitive impairment of uncertain or unknown etiology; F17.210 Nicotine dependence, cigarettes, uncomplicated | CPT/HCPCS: 99204 ==

== ENCOUNTER → 2020-04-05 07:43 | Outpatient (BNVA) | payer MEDICAID, SELFPAY | PROVIDERS: PCP Internal Medicine; Visit Provider Counselor Professional | DX: F43.12 Post-traumatic stress disorder, chronic (principal); F41.1 Generalized anxiety disorder; F33.1 Major depressive disorder, recurrent, moderate | CPT/HCPCS: 90834 ==

== ENCOUNTER → 2020-04-12 08:37 | Outpatient (BNVA) | payer MEDICAID, SELFPAY | PROVIDERS: PCP Internal Medicine; Visit Provider Counselor Professional | DX: F43.12 Post-traumatic stress disorder, chronic (principal); F41.1 Generalized anxiety disorder; F33.1 Major depressive disorder, recurrent, moderate | CPT/HCPCS: 90834 ==

== ENCOUNTER → 2020-04-18 07:47 | Outpatient (BNVA) | payer MEDICAID, SELFPAY | PROVIDERS: PCP Internal Medicine; Visit Provider Nurse Practitioner Psychiatric/Mental Health | DX: F33.1 Major depressive disorder, recurrent, moderate (principal); F43.12 Post-traumatic stress disorder, chronic; F41.1 Generalized anxiety disorder | CPT/HCPCS: 99212 ==

== ENCOUNTER → 2020-04-28 08:23 | Outpatient (BNVA) | payer MEDICAID, SELFPAY | PROVIDERS: PCP Internal Medicine; Visit Provider Counselor Professional | DX: F43.12 Post-traumatic stress disorder, chronic (principal); F41.1 Generalized anxiety disorder; F33.1 Major depressive disorder, recurrent, moderate | CPT/HCPCS: 90834 ==

== ENCOUNTER → 2020-05-02 08:06 | Outpatient (BNVA) | payer MEDICAID, SELFPAY | PROVIDERS: PCP Internal Medicine; Visit Provider Nurse Practitioner Psychiatric/Mental Health | DX: F43.12 Post-traumatic stress disorder, chronic (principal); F41.1 Generalized anxiety disorder; F33.1 Major depressive disorder, recurrent, moderate | CPT/HCPCS: 99212 ==

== ENCOUNTER → 2020-05-08 07:53 | Outpatient (BNVA) | payer MEDICAID, SELFPAY | PROVIDERS: PCP Internal Medicine; Visit Provider Counselor Professional | DX: F43.12 Post-traumatic stress disorder, chronic (principal); F33.1 Major depressive disorder, recurrent, moderate; F41.1 Generalized anxiety disorder | CPT/HCPCS: 90834 ==

== ENCOUNTER → 2020-05-18 08:23 | Outpatient (BNVA) | payer MEDICAID, SELFPAY | PROVIDERS: PCP Internal Medicine; Visit Provider Nurse Practitioner Psychiatric/Mental Health | DX: F33.1 Major depressive disorder, recurrent, moderate (principal); F43.12 Post-traumatic stress disorder, chronic; F41.1 Generalized anxiety disorder | CPT/HCPCS: 99212 ==

== ENCOUNTER → 2020-05-22 08:23 | Outpatient (BNVA) | payer MEDICAID, SELFPAY | PROVIDERS: PCP Internal Medicine; Visit Provider Counselor Professional | DX: F43.12 Post-traumatic stress disorder, chronic (principal); F33.1 Major depressive disorder, recurrent, moderate; F41.1 Generalized anxiety disorder; G43.711 Chronic migraine without aura, intractable, with status migrainosus; G31.84 Mild cognitive impairment of uncertain or unknown etiology; F17.210 Nicotine dependence, cigarettes, uncomplicated | CPT/HCPCS: 90834; G0463 ==

== ENCOUNTER 2020-05-25 07:33 | Outpatient (CLI) | payer MEDICAID, SELFPAY ==
--- NOTE | 2020-05-25 07:37 | MM_ITS ---
WS: [id number] BILATERAL SCREENING DIGITAL MAMMOGRAM WITH CAD HISTORY: SCREENING COMPARISON: 07/28/2012 Bilateral CC and MLO views submitted. Computer aided detection analyzed. Breast composition: There are scattered areas of fibroglandular density. No suspicious masses, microc alcifications or architectural distortion. Benign calcifications in each breast. MM/[place] [id number] IMPRESSION: BI-RADS: 2-Benign FOLLOW UP: 1 Year Follow-up
== END 2020-05-25 07:34 | disposition home or self-care (01) ==
LOC: RADSHAW 07:35
PROVIDERS: PCP Internal Medicine; Visit Provider Internal Medicine
DX: Z12.31 Encounter for screening mammogram for malignant neoplasm of breast (principal)
CPT/HCPCS: 77067

== ENCOUNTER → 2020-05-30 08:20 | Outpatient (BNVA) | payer MEDICAID, SELFPAY | PROVIDERS: PCP Internal Medicine; Visit Provider Nurse Practitioner Psychiatric/Mental Health | DX: F43.12 Post-traumatic stress disorder, chronic (principal); F41.1 Generalized anxiety disorder; F33.1 Major depressive disorder, recurrent, moderate | CPT/HCPCS: 99214 ==

== ENCOUNTER → 2020-05-31 08:31 | Outpatient (BNVA) | payer MEDICAID, SELFPAY | PROVIDERS: PCP Internal Medicine; Visit Provider Counselor Professional | DX: F43.12 Post-traumatic stress disorder, chronic (principal) | CPT/HCPCS: 90834 ==

== ENCOUNTER → 2020-06-16 09:47 | Outpatient (BNVA) | payer MEDICAID, SELFPAY | PROVIDERS: PCP Internal Medicine; Visit Provider Counselor Professional | DX: F43.12 Post-traumatic stress disorder, chronic (principal); F41.1 Generalized anxiety disorder; F33.1 Major depressive disorder, recurrent, moderate | CPT/HCPCS: 90834 ==

== ENCOUNTER → 2020-06-27 07:47 | Outpatient (BNVA) | payer MEDICAID, SELFPAY | PROVIDERS: PCP Internal Medicine; Visit Provider Nurse Practitioner Psychiatric/Mental Health | DX: F43.12 Post-traumatic stress disorder, chronic (principal); F41.1 Generalized anxiety disorder; F33.1 Major depressive disorder, recurrent, moderate | CPT/HCPCS: 99213 ==

== ENCOUNTER → 2020-07-13 08:18 | Outpatient (BNVA) | payer MEDICAID, SELFPAY | PROVIDERS: PCP Internal Medicine; Visit Provider Counselor Professional | DX: F43.12 Post-traumatic stress disorder, chronic (principal) | CPT/HCPCS: 90832; 90834 ==

== ENCOUNTER → 2020-08-22 08:03 | Outpatient (BNVA) | payer MEDICAID, SELFPAY | PROVIDERS: PCP Internal Medicine; Visit Provider Nurse Practitioner Psychiatric/Mental Health | DX: F43.12 Post-traumatic stress disorder, chronic (principal); F41.1 Generalized anxiety disorder; F33.1 Major depressive disorder, recurrent, moderate | CPT/HCPCS: 99213 ==

== ENCOUNTER → 2020-08-23 08:01 | Outpatient (BNVA) | payer MEDICAID, SELFPAY | PROVIDERS: PCP Internal Medicine; Visit Provider Counselor Professional | DX: F43.12 Post-traumatic stress disorder, chronic (principal); F41.1 Generalized anxiety disorder; F33.1 Major depressive disorder, recurrent, moderate | CPT/HCPCS: 90832; 90834 ==

== ENCOUNTER 2020-10-28 09:30 | Emergency (ER) | payer MEDICAID, SELFPAY ==
[2020-10-28 09:41] VITALS: BP 113/76; PULSE 117; RESP 19; TEMP 37.6; O2SAT 89; BMI 38.0
--- NOTE | 2020-10-28 09:41 | CTR_ITS ---
PROCEDURE INFORMATION: Exam: CT Abdomen And Pelvis With Contrast Exam date and time: 10/28/2020 9:41 AM Age: 44 years old Clinical indication: Abdominal pain; Additional info: Diffuse abd pain, diarrhea, PT says cannot be due to ablation will sign release TECHNIQUE: Imaging protocol: Computed tomography of the abdomen and pelvis with contrast. Radiation optimization: All CT scans at this facility use at least one of these dose optimization techniques: automated exposure control; mA and/or kV adjustment per patient size (includes targeted exams where dose is matched to clinical indication); or iterative reconstruction. Contrast material: OMNI 300; Contrast volume: 95 ml; Contrast route: INTRAVENOUS (IV); COMPARISON: CT abdomen pelvis w con* [id number] 09/10/2015 12:37 PM RADIATION DOSE METRICS: Total DLP (mGy-cm): 1809.73 FINDINGS: Lungs: There is mild subsegmental atelectasis in the lung bases. Liver: Normal. No mass. Gallbladder and bile ducts: Cholecystectomy. Normal bile ducts. Pancreas: Normal. No ductal dilation. Spleen: Multiple benign calcified granulomas are present in the spleen. Adrenal glands: Normal. No mass. Kidneys and ureters: Normal. No hydronephrosis. Stomach and bowel: There is fluid in multiple loops of nondilated small bowel and colon which may indicate an enterocolitis. There is no significant mural thickening or bowel dilatation. There is no definite evidence of obstruction. Appendix: The appendix is identified and is normal. Intraperitoneal space: Unremarkable. No free air. No significant fluid collection. Vasculature: Unremarkable. No abdominal aortic aneurysm. Lymph nodes: There is stable appearance of mildly enlarged lymph nodes in the mikala hepatis and along the celiac axis. This has not changed since at least 2016. Urinary bladder: There is distention of the urinary bladder. The bladder wall is not thickened. Reproductive: Unremarkable as visualized. Bones/joints: Unremarkable. No acute fracture. Soft tissues: Unremarkable. CT/CT abdomen pelvis w con* [id number] IMPRESSION: 1. There are multiple loops of nondilated fluid-filled small bowel and colon which may be due to enterocolitis. 2. Cholecystectomy. Normal bile ducts. 3. Normal appendix. 4. No other acute abnormalities are seen in the abdomen and pelvis. Radiation Dose CTDIVOL = (mGy): DLP = 1809.73 (mGy-cm)
[2020-10-28 09:49] VITALS: BP 113/76; PULSE 109; RESP 19; O2SAT 95
--- NOTE | 2020-10-28 10:08 | ED_ITS ---
HPI - Nausea/Vomiting/Diarrhea General: Chief complaint: Nausea/Vomiting/Diarrhea Stated complaint: severe diarrhea, N/V, cant keep anything down Time Seen by Provider: 10/28/20 09:35 History of Present Illness: HPI Narrative: 44-year-old female who is complain ing of diarrhea for about a week and that every time she eats it just goes right through her but she denies any nausea or vomiting. She has diffuse abdominal pain. She is seeing her PCP this week twice but she feels it is getting worse she denies any blood in her stools. She does have diffuse mid abdominal pain she is had her gallbladder removed. Denies any known fevers. She says her blood sugars have been running fine for her she denies recent antibiotics or travel Patient does state she took 2 Phenergan tablets at 9 AM [facility] ED PFSH: Medical History Chronic post-traumatic stress disorder (PTSD) Diabetes mellitus Generalized anxiety disorder See subjective information below. Hyperlipidemia Hypertension Major depressive disorder, recurrent, moderate See subjective information below. Surgical History History of endometrial ablation S/P cholecystectomy Social History Smoking and tobacco status: current every day smoker cigarettes Packs smoked per day: 1 Years cigarettes smoked: 20 Quit status (tobacco): not considering quitting Second hand smoke exposure: No Current gender identity: Female Physical Exam Narrative: EXAM NARRATIVE: General: a/o/3, no distress Head: atraumatic HEENT: normal eyes, normal conjunctiva, normal hearing, normal external nose, normal mouth, mucous membranes moist Neck: FROM, trachea midline Chest: normal expansion, no gross deformities Resp: normal speech, no retractions, no accessory muscle use, CTA bilaterally Cardio: regular rate and rhythm and no murmur, no peripheral edema, normal peripheral pulses GI: soft, flat diffuse mid tender, no guarding normal BS : deferred Musculoskeletal: FROM, no pain or gross deformities Neuro: a/o appropriate for age, no gross motor or sensory deficits, CN II-XII grossly intact, normal coordination, normal speech Skin: no rashes Psych: cooperative, normal mood and effect Course Vital Signs: Vital signs: Vital Signs Temperature 97.9 F 10/28/20 13:49 Pulse Rate 94 10/28/20 13:49 Respiratory Rate 18 10/28/20 13:49 Blood Pressure 125/79 10/28/20 13:49 Pulse Oximetry 94 10/28/20 13:49 MDM - Nausea/Vomiting/Diarrhea MDM Narrative: Medical decision making narrative: Patient was in no distress upon arrival she had diffuse abdominal pain will obtain laboratory work as well as a CT scan to check for any forms of colitis or other causes. Her blood sugar was 358. Nursing staff asked me to come reevaluate the patient around 1020 that she seem more diaphoretic and somnolent. Patient at this point does admit to taking 2 Phenergan tablets at 9 AM which they would about have effect. She says she just feels sleepy. Pulse is a little up at 110 blood pressure stable and her blood sugar was 350 able having some fluids I think it is probably medication effect Patient is very sleepy and has a little bit of a thick tongue and I do feel this is probably from the 50 mg of Phenergan she took at 9 AM which was about an hour prior to arrival to the ER I think it kicked in. She has had no vomiting no diarrhea here in the emergency department sodium is a little low she was given a liter fluid discussed with her IBS viral enterocolitis offered her antibiotics although I am not sure they would be of benefit as she does not have any thickened bowel she does not want to do antibiotics she does have dicyclomine at home recommended she only take 1 tablet of Phenergan if not possibly half and that this can over sedate her especially with her clonazepam as well. Pt says she just feels sleepy and thinks it is the meds as well. labs stable. Discussed with patient when she has increased pain persistent diarrhea that she may need antibiotics I Davida go ahead and write them if her symptoms worsen she can follow-up with her PCP or go ahead and start the antibiotics Patient was up ambulating patient was able to ambulate herself to the bathroom no signs of distress Lab Data: Labs: Lab Results 10/28/20 10/28/20 10/28/20 Range/Units 10:24 10:24 10:24 WBC 11.6 H (4.0-10.0) 10^3/ uL RBC 4.20 (4.1-5.3) 10^6/u L Hgb 12.0 (11.5-15.3) g/dL Hct 37.0 (37.0-47.0) % MCV 88.1 (81-99) fL MCH 28.6 (28.0-34.0) pg MCHC 32.4 (30.0-36.0) g/dL RDW 13.7 (12.1-15.1) % Plt Count 321 (130-400) 10^3/c mm MPV 10.0 (7.4-10.4) fL Neut % (Auto) 65.0 % Lymph % (Auto) 23.5 % [place] % (Auto) 6.4 % Eos % (Auto) 4.1 % Baso % (Auto) 0.7 % Neut # (Auto) 7.54 (1.8-7.7) 10^3/u L Lymph # (Auto) 2.7 (0.8-4.8) 10^3/u L [place] # (Auto) 0.7 (0.2-0.9) 10^3/u L Eos # (Auto) 0.5 (0.0-0.8) 10^3/u L Baso # (Auto) 0.1 (0.0-0.1) 10^3/u L Nucleated RBC % (a uto) 0 % Nucleated RBCs # 0.0 /100WBC Sodium 127 L (136-145) mmol/L Potassium 5.3 H (3.5-5.1) mmol/L Chloride 95 L (98-107) mmol/L Carbon Dioxide 19 L (22-29) mmol/L Anion Gap 18.3 (5-19) BUN 40 H (6-20) mg/dL Creatinine 1.2 H (0.5-0.9) mg/dL GFR Calculation 48.6 L (90-130) mL/min Glucose 343 H (65-115) mg/dL POC Glucose (70-110) mg/dL Calculated Osmolal ity 287 (285-295) mOsm/k g Calcium 9.0 (8.5-10.5) mg/dL Total Bilirubin 0.2 (0.15-1.2) mg/dL AST 12 (0-32) U/L ALT 18 (0-33) U/L Alkaline Phosphata se 169 H (35-105) IU/L Total Protein 7.6 (6.6-8.7) g/dL Albumin 4.2 (3.5-5.2) g/dL Globulin 3.4 (1.3-4.6) g/dL Lipase 13 (13-60) U/L HCG, Qual (Negative) Serum Ketones Negative (Negative) 10/28/20 10/28/20 Range/Units 10:24 10:27 WBC (4.0-10.0) 10^3/ uL RBC (4.1-5.3) 10^6/u L Hgb (11.5-15.3) g/dL Hct (37.0-47.0) % MCV (81-99) fL MCH (28.0-34.0) pg MCHC (30.0-36.0) g/dL RDW (12.1-15.1) % Plt Count (130-400) 10^3/c mm MPV (7.4-10.4) fL Neut % (Auto) % Lymph % (Auto) % [place] % (Auto) % Eos % (Auto) % Baso % (Auto) % Neut # (Auto) (1.8-7.7) 10^3/u L Lymph # (Auto) (0.8-4.8) 10^3/u L [place] # (Auto) (0.2-0.9) 10^3/u L Eos # (Auto) (0.0-0.8) 10^3/u L Baso # (Auto) (0.0-0.1) 10^3/u L Nucleated RBC % (a uto) % Nucleated RBCs # /100WBC Sodium (136-145) mmol/L Potassium (3.5-5.1) mmol/L Chloride (98-107) mmol/L Carbon Dioxide (22-29) mmol/L Anion Gap (5-19) BUN (6-20) mg/dL Creatinine (0.5-0.9) mg/dL GFR Calculation (90-130) mL/min Glucose (65-115) mg/dL POC Glucose 358 H (70-110) mg/dL Calculated Osmolal ity (285-295) mOsm/k g Calcium (8.5-10.5) mg/dL Total Bilirubin (0.15-1.2) mg/dL AST (0-32) U/L ALT (0-33) U/L Alkaline Phosphata se (35-105) IU/L Total Protein (6.6-8.7) g/dL Albumin (3.5-5.2) g/dL Globulin (1.3-4.6) g/dL Lipase (13-60) U/L HCG, Qual Negative (Negative) Serum Ketones (Negative) Discharge Plan Discharge Patient Disposition: Home Clinical Impression: Enterocolitis Condition: Stable Prescriptions: New Cipro 500 mg tablet 500 mg PO BID Qty: 14 RF: 0 metronidazole 500 mg tablet 500 mg PO Q8H 7 Days Qty: 21 RF: 0 No Action hydrocodone-acetaminophen 10-325 mg tablet 1 tab PO QID PRN (Reason: Pain) RF: 0 insulin aspart U-100 [Novolog Flexpen U-100 Insulin] 100 unit/mL (3 mL) insulin pen 18 unit SUBCUT TID RF: 0 Lantus Solostar U-100 Insulin 100 unit/mL (3 mL) insulin pen 66 unit SUBCUT BEDTIME RF: 0 metoprolol succinate 25 mg capsule,sprinkle,ER 24hr 25 mg PO BID RF: 0 amitriptyline 100 mg tablet 100 mg PO .qhs Qty: 30 RF: 1 duloxetine 60 mg capsule, delayed rel sprinkle 60 mg PO .q am Qty: 30 RF: 1 duloxetine 30 mg capsule,delayed release(DR/EC) 30 mg PO DAILY Qty: 30 RF: 1 clonazepam 0.5 mg tablet 0.5 mg PO BID PRN (Reason: anxiety/panic) 30 Days Qty: 60 RF: 1 Aimovig Autoinjector 140 mg/mL auto-injector 140 mg SUBCUT .Monthly Qty: 1 RF: 3 atorvastatin [Lipitor] 40 mg Tablet 40 mg PO BEDTIME RF: 0 donepezil 10 mg Tablet 10 mg PO BEDTIME RF: 0 ergocalciferol (vitamin D2) [Drisdol] 1,250 mcg (50,000 unit) capsule 1,250 mcg PO Q7D RF: 0 gabapentin 600 mg tablet 600 mg PO TID RF: 0 levothyroxine 100 mcg Tablet 100 mcg PO DAILY RF: 0 lisinopril 40 mg tablet 40 mg PO DAILY RF: 0 amlodipine 10 mg tablet 10 mg PO DAILY Qty: 30 RF: 0 Discharge Orders: Discharge ED (Routine); Ordered 10/28/20 Ordered By: Sola Manzo Referrals: Justina Mazariegos, DO [Primary Care Provider] - Discharge Diet: Advance as tolerated and Clear Liquid Discharge Activity: Increase activity as tolerated Patient Instructions: Irritable Bowel Syndrome (ED), Infectious Colitis (ED) Activity Restrictions/Additional Instructions: Recommend you only take 1 tablet of Phenergan at a time and you may even need to cut this in half. I recommend you do not have any more of the Phenergan (promethazine (the rest of the day. You can use your dicyclomine (Bentyl (for cramping and it may also slow some of her diarrhea. You could try some [id number] Imodium. If you have increased pain fevers worsening of diarrhea start the antibiotics. You may also want to obtain a stool sample and take it into your provider. Call your provider on Friday for repeat visit this week stay hydrated with lots of fluids and/or Gatorade. It is recommended you try clear liquids for the next 24 hours however you will need to supplement with some forms of sugar so your blood sugar does not drop. Although your blood sugar here was 358 monitor closely Thank you for choosing [facility] for your healthcare needs today. Please realize this is an emergency room and that we are providing you with a medical screening exam and this may not be complete and all inclusive of all the testing and or work up that you may need to determine your ailment or severity of your illness. It is very important that you follow up as instructed or that you return to the Emergency Department should you have concerns or if your condition changes or worsens in any way. Coding Level of Care Code ED Management Recruiter for Destiny Sanchez
[2020-10-28 10:19] VITALS: BP 121/75; PULSE 98; RESP 12; O2SAT 95
[2020-10-28 10:31] LABS: Glucose Point of Care 358 mg/dL (70-110)
[2020-10-28] MEDS: sodium chloride 0.9% 1,000 ML 999 ML IV (10:34)
[2020-10-28 10:40] LABS: Basophils # 0.1 10^3/uL (0.0-0.1); Basophils % 0.7 %; Eosinophils # 0.5 10^3/uL (0.0-0.8); Eosinophils % 4.1 %; Lymphocytes # 2.7 10^3/uL (0.8-4.8); Lymphocytes % 23.5 %; Mean Corpuscular HGB Conc 32.4 g/dL (30.0-36.0); Mean Corpuscular Hemoglobin 28.6 pg (28.0-34.0); Mean Corpuscular Volume 88.1 fL (81-99); Monocytes # 0.7 10^3/uL (0.2-0.9); Monocytes % 6.4 %; Neutrophils # 7.54 10^3/uL (1.8-7.7); Nucleated Red Blood Cells % 0 %; Platelet Count 321 10^3/cmm (130-400); Red Cell Distribution Width 13.7 % (12.1-15.1); White Blood Count 11.6 10^3/uL (4.0-10.0)
[2020-10-28 10:52] LABS: HCG, Serum Qual Negative (Negative); Ketone (Acetest) Serum Negative (Negative)
[2020-10-28] MEDS: iohexol 300 mg/mL 100 mL Btl IV (10:55)
[2020-10-28 10:57] LABS: Alanine Aminotransferase 18 U/L (0-33); Albumin Level 4.2 g/dL (3.5-5.2); Alkaline Phosphatase 169 IU/L (35-105); Blood Urea Nitrogen 40 mg/dL (6-20); Carbon Dioxide 19 mmol/L (22-29); Chloride 95 mmol/L (98-107); Globulin 3.4 g/dL (1.3-4.6); Glomerular Filtration Rate 48.6 mL/min (90-130); Glucose 343 mg/dL (65-115); Lipase 13 U/L (13-60); Osmolality Calculated 287 mOsm/kg (285-295); Sodium 127 mmol/L (136-145); Total Bilirubin 0.2 mg/dL (0.15-1.2); Total Protein 7.6 g/dL (6.6-8.7)
[2020-10-28 11:13] LABS: Anion Gap 18.3 (5-19); Aspartate Amino Transferase 12 U/L (0-32); Potassium 5.3 mmol/L (3.5-5.1)
[2020-10-28 11:30] VITALS: BP 121/78; PULSE 98; RESP 14; O2SAT 98
[2020-10-28 13:49] VITALS: BP 125/79; PULSE 94; RESP 18; TEMP 36.6; O2SAT 94
== END 2020-10-28 13:53 | disposition home or self-care (01) ==
PROVIDERS: Emergency Provider Emergency Medicine; PCP Internal Medicine
DX: K52.9 Noninfective gastroenteritis and colitis, unspecified (principal); Z79.4 Long term (current) use of insulin; E11.9 Type 2 diabetes mellitus without complications; E78.5 Hyperlipidemia, unspecified; I10 Essential (primary) hypertension; F17.210 Nicotine dependence, cigarettes, uncomplicated
CPT/HCPCS: 36416; 74177; 80053; 82009; 82962; 83690; 84703; 85025; 96360; 99283; J7030; Q9967

== ENCOUNTER → 2020-11-21 15:34 | Outpatient (BNVA) | payer MEDICAID, SELFPAY | PROVIDERS: PCP Internal Medicine; Referring Provider Internal Medicine; Visit Provider Orthopaedic Surgery | DX: M54.9 Dorsalgia, unspecified (principal); M48.062 Spinal stenosis, lumbar region with neurogenic claudication | CPT/HCPCS: 72120 ==

== ENCOUNTER → 2020-12-18 12:33 | Outpatient (BNVA) | payer MEDICAID, SELFPAY | PROVIDERS: PCP Internal Medicine; Visit Provider Specialist | DX: G43.711 Chronic migraine without aura, intractable, with status migrainosus (principal); G31.84 Mild cognitive impairment of uncertain or unknown etiology; E11.9 Type 2 diabetes mellitus without complications; Z79.4 Long term (current) use of insulin; F41.1 Generalized anxiety disorder; F33.1 Major depressive disorder, recurrent, moderate; Z87.891 Personal history of nicotine dependence | CPT/HCPCS: 99214 ==

== ENCOUNTER → 2020-12-28 12:30 | Outpatient (BNVA) | payer MEDICAID, SELFPAY | PROVIDERS: PCP Internal Medicine; Visit Provider Nurse Practitioner Psychiatric/Mental Health | DX: F33.1 Major depressive disorder, recurrent, moderate (principal); F41.1 Generalized anxiety disorder; F43.12 Post-traumatic stress disorder, chronic | CPT/HCPCS: 99213 ==

== ENCOUNTER → 2021-02-22 14:07 | Outpatient (BNVA) | payer MEDICAID, SELFPAY | PROVIDERS: PCP Internal Medicine; Visit Provider Nurse Practitioner Psychiatric/Mental Health | DX: F33.1 Major depressive disorder, recurrent, moderate (principal); F41.1 Generalized anxiety disorder; F43.12 Post-traumatic stress disorder, chronic | CPT/HCPCS: 99213 ==

== ENCOUNTER → 2021-03-27 10:05 | Outpatient (BNVA) | payer MEDICAID, SELFPAY | PROVIDERS: PCP Internal Medicine; Visit Provider Internal Medicine | DX: E11.65 Type 2 diabetes mellitus with hyperglycemia (principal); E11.40 Type 2 diabetes mellitus with diabetic neuropathy, unspecified; E11.22 Type 2 diabetes mellitus with diabetic chronic kidney disease; N18.30 Chronic kidney disease, stage 3 unspecified; E03.9 Hypothyroidism, unspecified; E78.5 Hyperlipidemia, unspecified; Z79.4 Long term (current) use of insulin | CPT/HCPCS: 99214 ==

== ENCOUNTER 2021-03-27 11:00 | Outpatient (CLI) | payer MEDICAID, SELFPAY ==
[2021-03-27 11:56] LABS: Estmated Average Glucose 229; Hemoglobin A1C 9.6 % (4.0-6.0)
[2021-03-27 12:12] LABS: Creatinine Urine, Random 107 mg/dL (28-217); Microalbum Creatinine Ratio Ur 9 mg/dL (0-20); Microalbumin Random Urine 1 ug/dL (0-20)
[2021-03-27 12:15] LABS: Alanine Aminotransferase 19 U/L (0-33); Albumin Level 4.3 g/dL (3.5-5.2); Alkaline Phosphatase 150 IU/L (35-105); Anion Gap 19.1 (5-19); Aspartate Amino Transferase 17 U/L (0-32); Blood Urea Nitrogen 19 mg/dL (6-20); Carbon Dioxide 24 mmol/L (22-29); Chloride 93 mmol/L (98-107); Chol HDL Ratio 2.75 mg/dL (0.0-4.40); Cholesterol 132 mg/dL (0-200); Free T4 Free Thyroxine 1.04 ng/dL (0.82-1.77); Globulin 3.8 g/dL (1.3-4.6); Glomerular Filtration Rate 90.1 mL/min (90-130); Glucose 214 mg/dL (65-115); HDL Cholesterol 48 mg/dL (60-100); LDL Cholesterol Calculated 61 mg/dL (50-129); LDL HDL Ratio 1.27 RATIO (0.00-3.22); Osmolality Calculated 283 mOsm/kg (285-295); Potassium 4.1 mmol/L (3.5-5.1); Sodium 132 mmol/L (136-145); Thyroid Stimulating Hormone 2.08 uIU/mL (0.27-4.20); Total Bilirubin 0.3 mg/dL (0.15-1.2); Total Protein 8.1 g/dL (6.6-8.7); Triglycerides 115 mg/dL (0-150)
== END 2021-03-27 11:01 | disposition home or self-care (01) ==
LOC: LAB 11:04
PROVIDERS: PCP Internal Medicine; Visit Provider Internal Medicine
DX: E03.9 Hypothyroidism, unspecified (principal); E13.9 Other specified diabetes mellitus without complications; E78.5 Hyperlipidemia, unspecified
CPT/HCPCS: 36415; 80053; 80061; 82044; 83036; 83519; 83525; 84439; 84443; 86337

== ENCOUNTER 2021-05-08 08:22 | Outpatient (CLI) | payer MEDICAID, SELFPAY ==
--- NOTE | 2021-05-08 08:45 | MR_ITS ---
WS: [id number] MRI LUMBAR SPINE NONCONTRAST TECHNIQUE: Sagittal T1, T2 and STIR imaging. Axial T1 and T2 imaging. CLINICAL INFORMATION: M48.062 - Spinal stenosis, lumbar region with neurogenic ... COMPARISON: MRI 2007 FINDINGS: Mild lumbar curve. No acute compression. No high-grade central canal stenosis. Small central and righ t pericentral protrusion lower thoracic spine at T11-T12 with mild central canal stenosis. This is similar to 2007 L1-L2: Mild disc bulging with osteophytic ridging. Mild facet arthropathy. Spinal canal and foramen a re patent. L2-L3: Normal. L3-L4: No significant disc bulging. Mild facet arthropathy. Spinal canal and foramen are patent. L4-L5: Mild annular bulging with a tiny annular fissure. Slight effacement ventral thecal sac with e ncroachment traversing L5 nerve roots, left greater than right. Mild facet arthropathy. Mild left for aminal narrowing. Right foramen is patent. L5-S1: Left subarticular disc protrusion impinges the left S1 nerve root in the subarticular recess. Correlation left S1 nerve root symptoms. Mild to moderate facet arthropathy. Mild bilateral foraminal narrowing left greater than right. Visualized pelvic bony structures: Normal. Paravertebral soft tissues: Normal. MR/MR lumbar spine wo con* [id number] IMPRESSION: 1. Mild lumbar curve. No acute compression. No high-grade central canal stenos is. 2. Small central protrusion T11-T12 with mild central canal stenosis similar t o 2007. 3. Left subarticular disc protrusion L5-S1 impinges the traversing left S1 ner ve root in the subarticular recess.Correlation left S1 nerve root symptoms. Thi s appears stable compared to 2007. 4. Mild left greater than right L5-S1 foraminal narrowing. 5. Annular bulging L4-5 with a small annular fissure slightly impinges the tra versing left greater than right L5 nerve roots. This is slightly progressed com pared to 2007.
== END 2021-05-08 08:23 | disposition home or self-care (01) ==
LOC: RADSHAW 08:26
PROVIDERS: PCP Family Medicine; Visit Provider Orthopaedic Surgery
DX: M48.062 Spinal stenosis, lumbar region with neurogenic claudication (principal); M51.24 Other intervertebral disc displacement, thoracic region; M51.26 Other intervertebral disc displacement, lumbar region
CPT/HCPCS: 72148

== ENCOUNTER → 2021-05-17 08:27 | Outpatient (BNVA) | payer MEDICAID, SELFPAY | PROVIDERS: PCP Family Medicine; Visit Provider Nurse Practitioner Psychiatric/Mental Health | DX: F33.1 Major depressive disorder, recurrent, moderate (principal); F41.1 Generalized anxiety disorder; F43.12 Post-traumatic stress disorder, chronic; Z79.899 Other long term (current) drug therapy | CPT/HCPCS: 99214 ==

== ENCOUNTER → 2021-05-31 15:14 | Outpatient (BNVA) | payer MEDICAID, SELFPAY | PROVIDERS: PCP Family Medicine; Visit Provider Specialist | DX: G43.711 Chronic migraine without aura, intractable, with status migrainosus (principal) | CPT/HCPCS: 99213; 99214 ==

== ENCOUNTER → 2021-06-19 08:38 | Outpatient (BNVA) | payer MEDICAID, SELFPAY | PROVIDERS: PCP Family Medicine; Visit Provider Internal Medicine | DX: E03.9 Hypothyroidism, unspecified (principal); E11.65 Type 2 diabetes mellitus with hyperglycemia; E11.40 Type 2 diabetes mellitus with diabetic neuropathy, unspecified; E11.22 Type 2 diabetes mellitus with diabetic chronic kidney disease; N18.30 Chronic kidney disease, stage 3 unspecified; F17.210 Nicotine dependence, cigarettes, uncomplicated; Z79.4 Long term (current) use of insulin | CPT/HCPCS: 99214 ==

== ENCOUNTER → 2021-07-09 12:32 | Outpatient (BNVA) | payer MEDICAID, SELFPAY | PROVIDERS: Visit Provider Social Worker | DX: F41.1 Generalized anxiety disorder (principal); F43.12 Post-traumatic stress disorder, chronic | CPT/HCPCS: 90837 ==

== ENCOUNTER → 2021-07-12 13:34 | Outpatient (BNVA) | payer MEDICAID, SELFPAY | PROVIDERS: Visit Provider Specialist | DX: G43.711 Chronic migraine without aura, intractable, with status migrainosus (principal); F17.210 Nicotine dependence, cigarettes, uncomplicated | CPT/HCPCS: 64615; J0585 ==

== ENCOUNTER → 2021-09-04 13:17 | Outpatient (BNVA) | payer MEDICAID, SELFPAY | PROVIDERS: Visit Provider Nurse Practitioner Psychiatric/Mental Health | DX: F33.1 Major depressive disorder, recurrent, moderate (principal); F41.1 Generalized anxiety disorder; F43.12 Post-traumatic stress disorder, chronic; Z79.899 Other long term (current) drug therapy | CPT/HCPCS: 80053; 99214 ==

== ENCOUNTER → 2021-09-10 13:00 | Outpatient (BNVA) | payer MEDICAID, SELFPAY | PROVIDERS: Visit Provider Social Worker | DX: F41.1 Generalized anxiety disorder (principal); F43.12 Post-traumatic stress disorder, chronic | CPT/HCPCS: 90834 ==

== ENCOUNTER → 2021-09-12 10:50 | Outpatient (BNVA) | payer MEDICAID, SELFPAY | PROVIDERS: Visit Provider Internal Medicine | DX: E11.65 Type 2 diabetes mellitus with hyperglycemia (principal); E11.40 Type 2 diabetes mellitus with diabetic neuropathy, unspecified; E11.22 Type 2 diabetes mellitus with diabetic chronic kidney disease; N18.30 Chronic kidney disease, stage 3 unspecified; E03.9 Hypothyroidism, unspecified; F17.210 Nicotine dependence, cigarettes, uncomplicated; Z79.4 Long term (current) use of insulin | CPT/HCPCS: 99214 ==

== ENCOUNTER 2021-09-18 14:27 | Outpatient (CLI) | payer OTHER, SELFPAY ==
--- NOTE | 2021-09-18 14:44 | XR_ITS ---
WS: [id number] XR KUB [id number] REASON FOR EXAM: CONSTIPATION FINDINGS: Bowel gas pattern is unremarkable. There is moderate stool in the right and transverse colons. No significant bowel distention. No free air or retroperitoneal air. No urinary tract calculi. No mass identified. XR/XR KUB [id number] IMPRESSION: No significant abnormality.
== END 2021-09-18 14:28 | disposition home or self-care (01) ==
PROVIDERS: PCP Family Medicine; Visit Provider Nurse Practitioner Family
DX: K59.00 Constipation, unspecified (principal)
CPT/HCPCS: 74018

== ENCOUNTER → 2021-12-10 13:55 | Outpatient (BNVA) | payer OTHER, SELFPAY | PROVIDERS: PCP Family Medicine; Visit Provider Internal Medicine | DX: E13.9 Other specified diabetes mellitus without complications (principal); E03.9 Hypothyroidism, unspecified | CPT/HCPCS: 80053; 80061; 82044; 83036; 84439; 84443 ==

== ENCOUNTER → 2022-01-17 08:11 | Outpatient (BNVA) | payer MEDICAID, SELFPAY | PROVIDERS: PCP Family Medicine; Visit Provider Specialist | DX: G43.711 Chronic migraine without aura, intractable, with status migrainosus (principal); E11.65 Type 2 diabetes mellitus with hyperglycemia; E66.01 Morbid (severe) obesity due to excess calories; Z79.4 Long term (current) use of insulin; Z68.41 Body mass index [BMI] 40.0-44.9, adult | CPT/HCPCS: 64615; 99213; J0585 ==

== ENCOUNTER → 2022-04-11 09:19 | Outpatient (BNVA) | payer MEDICAID, SELFPAY | PROVIDERS: PCP Family Medicine; Visit Provider Specialist | DX: G43.711 Chronic migraine without aura, intractable, with status migrainosus (principal) | CPT/HCPCS: 64615; 95911; J0585 ==

== ENCOUNTER 2022-04-26 13:31 | Outpatient (CLI) | payer MEDICAID, SELFPAY ==
--- NOTE | 2022-04-26 13:50 | MM_ITS ---
WS: [id number] BILATERAL 3D TOMOSYNTHESIS DIGITAL DIAGNOSTIC MAMMOGRAPHY WITH CAD CLINICAL INFORMATION: RT BREAST LUMP HISTORY: Bilateral breast lumps/indentation. COMPARISON: May 25, 2020 TECHNIQUE: Bilateral CC, MLO, and ML views. FINDINGS: Scattered fibroglandular densities bilaterally. Incidental punctate and lucent centered calcification s. Punctate calcifications similar to previous. Bilateral palpable marker is with underlying parenchy mal tissue similar to 202. Slightly spiculated parenchymal tissue upper outer LEFT breast is similar to 202 and only seen on the cc view. Ultrasound described below of these areas. ULTRASOUND BREAST BILATERAL TECHNIQUE: Ultrasound bilateral breast focused area of concern. CLINICAL INFORMATION: RT BREAST LUMP COMPARISON: None. FINDINGS: RIGHT BREAST: Ultrasound RIGHT breast area of interest 12:00 position. No suspicious cystic or solid lesions. No lesions to target for biopsy. Normal underlying parenchymal tissue. LEFT BREAST: Ultrasound LEFT breast area of interest upper outer quadrant 12-3 o'clock. No suspicious cystic or solid lesions. No lesions to target for biopsy. Normal underlying parenchymal tissue. MM/[place] [id number] IMPRESSION: BI-RADS: 2-Benign FOLLOW UP: 1 Year Follow-up Recommend return to annual screening mammography.
== END 2022-04-26 13:32 | disposition home or self-care (01) ==
LOC: RAD 13:33
PROVIDERS: PCP Family Medicine; Visit Provider Nurse Practitioner Family
DX: N63.15 Unspecified lump in the right breast, overlapping quadrants (principal)
CPT/HCPCS: 76642; 77062; G0279

== ENCOUNTER → 2022-07-11 08:53 | Outpatient (BNVA) | payer MEDICARE, MEDICAID, SELFPAY | PROVIDERS: PCP Family Medicine; Visit Provider Internal Medicine | DX: E11.65 Type 2 diabetes mellitus with hyperglycemia (principal); E03.9 Hypothyroidism, unspecified; Z79.890 Hormone replacement therapy; Z79.4 Long term (current) use of insulin | CPT/HCPCS: 36415; 83036; 84439; 84443; 84480; 99214 ==

== ENCOUNTER → 2022-10-01 10:00 | Outpatient (BNVA) | payer MEDICARE, MEDICAID, SELFPAY | PROVIDERS: PCP Family Medicine; Visit Provider Internal Medicine | DX: E11.40 Type 2 diabetes mellitus with diabetic neuropathy, unspecified (principal); E11.22 Type 2 diabetes mellitus with diabetic chronic kidney disease; E11.65 Type 2 diabetes mellitus with hyperglycemia; N18.30 Chronic kidney disease, stage 3 unspecified; E03.9 Hypothyroidism, unspecified; Z79.4 Long term (current) use of insulin; Z79.890 Hormone replacement therapy; Z72.0 Tobacco use | CPT/HCPCS: 80323; 99214 ==

== ENCOUNTER 2022-10-01 11:12 | Outpatient (CLI) | payer MEDICARE, MEDICAID, SELFPAY ==
[2022-10-05 06:36] LABS: Cotinine Serum/Plasma <2 ng/mL; Nicotine Serum/Plasma <2 ng/mL
== END 2022-10-01 11:13 | disposition home or self-care (01) ==
LOC: LAB 11:16
PROVIDERS: PCP Family Medicine; Visit Provider Nurse Practitioner Family
DX: Z72.0 Tobacco use (principal)
CPT/HCPCS: 80323

== ENCOUNTER 2022-10-07 12:15 | Emergency (ER) | payer MEDICARE, MEDICAID, SELFPAY ==
[2022-10-07] VITALS (10 sets, daily range): BP systolic 91–123; BP diastolic 43–82; PULSE 78–107; RESP 18; TEMP 36.8; O2SAT 92–94; BMI 42.9
--- NOTE | 2022-10-07 12:39 | CTR_ITS ---
PROCEDURE INFORMATION: Exam: CT Head Without Contrast Exam date and time: 10/07/2022 12:50 PM Age: 46 years old Clinical indication: Speech disturbance; Slurred speech; Additional info: Slurred speech with confusion TECHNIQUE: Imaging protocol: Computed tomography of the head without contrast. Radiation optimization: All CT scans at this facility use at least one of these dose optimization techniques: automated exposure control; mA and/or kV adjustment per patient size (includes targeted exams where dose is matched to clinical indication); or iterative reconstruction. REPORTING DATA: Count of CT and Cardiac NM exams in prior 12 months: This patient has received 0 known CTs and 0 known cardiac nuclear medicine studies in the 12 months prior to the current study. COMPARISON: CT head wo con* [id number] 02/21/2020 1:33 PM RADIATION DOSE METRICS: Total DLP (mGy-cm): 993.78 FINDINGS: Brain: Normal. No hemorrhage. Unremarkable white matter. No mass effect. Cerebral ventricles: No ventriculomegaly. Paranasal sinuses: Visualized sinuses are unremarkable. No fluid levels. Mastoid air cells: Visualized mastoid air cells are well aerated. Bones/joints: Unremarkable. No acute fracture. Soft tissues: Unremarkable. CT/CT head wo con* [id number] IMPRESSION: No acute intracranial abnormality.
--- NOTE | 2022-10-07 12:45 | CTR_ITS ---
PROCEDURE INFORMATION: Exam: CT Lumbar Spine Without Contrast Exam date and time: 10/07/2022 12:53 PM Age: 46 years old Clinical indication: Low back pain TECHNIQUE: Imaging protocol: Computed tomography of the lumbar spine without contrast. Radiation optimization: All CT scans at this facility use at least one of these dose optimization techniques: automated exposure control; mA and/or kV adjustment per patient size (includes targeted exams where dose is matched to clinical indication); or iterative reconstruction. REPORTING DATA: Count of CT and Cardiac NM exams in prior 12 months: This patient has received 0 known CTs and 0 known cardiac nuclear medicine studies in the 12 months prior to the current study. COMPARISON: MR lumbar spine wo con* [id number] 05/08/2021 8:52 AM RADIATION DOSE METRICS: Total DLP (mGy-cm): 1431.9 FINDINGS: Bones/joints: No acute fracture. Normal alignment. Degenerative disc disease at L1-L2 and L5-S1. No severe spinal canal stenosis. Neural foraminal narrowing noted bilaterally at L5-S1. Soft tissues: Unremarkable. CT/CT lumbar spine wo con* [id number] IMPRESSION: No acute findings. Degenerative disc disease at L1-L2 and L5-S1.
--- NOTE | 2022-10-07 12:45 | XRR_ITS ---
PROCEDURE INFORMATION: Exam: XR Chest Exam date and time: 10/07/2022 11:58 AM Age: 46 years old Clinical indication: Other: Msc; Additional info: Mental status change TECHNIQUE: Imaging protocol: Radiologic exam of the chest. Views: 1 view. COMPARISON: CR XR chest 1V portable [id number] 02/21/2020 8:09 AM FINDINGS: Lungs: Unremarkable. No consolidation. Pleural spaces: Unremarkable. No pleural effusion. No pneumothorax. Heart/Mediastinum: Unremarkable. No cardiomegaly. Bones/joints: Unremarkable. XR/XR chest 1V portable [id number] IMPRESSION: No acute findings.
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
--- NOTE | 2022-10-07 13:06 | PC.NURSE ---
PT PLACED ON CONTINUOUS SPO2, NIBP, AND CM.
--- NOTE | 2022-10-07 13:21 | ECG_ITS ---
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 Measurements Intervals [place] Rate: 88 P: 54 CA: 192 QRS: 75 QRSD: 124 T: 32 QT: 366 QTc: 443 Interpretive Statements SINUS RHYTHM POSSIBLE RIGHT VENTRICULAR CONDUCTION DELAY [RSR (QR) IN V1/V2] Compared to ECG 02/21/2020 10:24:14 No significant changes Electronically Signed On 10-07-2022 23:26:20 CDT by Livan Gordon M.D. [email or web address].[id number]
[2022-10-07] MEDS: sodium chloride 0.9% 1,000 ML 999 ML IV ×2 (13:25→15:24)
[2022-10-07] MEDS: ondansetron 2 mg/ML SDV 2 mL 4 MG IVP (13:25)
[2022-10-07 13:31] LABS: Glucose Point of Care 164 mg/dL (70-110)
[2022-10-07 13:46] LABS: Basophils # 0.1 10^3/uL (0.0-0.1); Basophils % 0.5 %; Eosinophils # 0.5 10^3/uL (0.0-0.8); Eosinophils % 5.1 %; Hematocrit 36.2 % (37.0-47.0); Hemoglobin 11.1 g/dL (11.5-15.3); Lymphocytes # 3.2 10^3/uL (0.8-4.8); Lymphocytes % 31.8 %; Mean Corpuscular HGB Conc 30.7 g/dL (30.0-36.0); Mean Corpuscular Hemoglobin 26.7 pg (28.0-34.0); Mean Corpuscular Volume 87.2 fl (81-99); Mean Platelet Volume 9.1 fL (7.4-10.4); Monocytes # 0.5 10^3/uL (0.2-0.9); Monocytes % 5.3 %; Neutrophils # 5.63 10^3/uL (1.8-7.7); Neutrophils % 56.9 %; Nucleated Red Blood Cells % 0 %; Platelet Count 242 10^3/cmm (130-400); Red Blood Count 4.15 10^6/uL (4.1-5.3); Red Cell Distribution Width 14.2 % (12.1-15.1); White Blood Count 9.9 10^3/uL (4.0-10.0)
[2022-10-07 14:01] LABS: INR 0.92 (0.8-1.2)
[2022-10-07 14:02] LABS: Partial Thromboplastin Time 26.8 SECONDS (23.9-36.7)
[2022-10-07 14:14] LABS: Alanine Aminotransferase 19 U/L (0-33); Alkaline Phosphatase 129 U/L (35-105); Aspartate Amino Transferase 21 U/L (0-32); Blood Urea Nitrogen 23 mg/dL (6-20); C Reactive Protein 28.8 mg/L (0.0-4.9); Calcium 8.2 mg/dL (8.5-10.5); Carbon Dioxide 27 mmol/L (22-29); Chloride 92 mmol/L (98-107); Globulin 3.2 g/dL (1.3-4.6); Glomerular Filtration Rate 40.3 mL/min (90-130); Glucose 152 mg/dL (65-115); Osmolality Calculated 275 mOsm/kg (285-295); Sodium 129 mmol/L (136-145); Thyroid Stimulating Hormone 5.78 uIU/mL (0.27-4.20); Total Bilirubin 0.4 mg/dL (0.15-1.2); Total Protein 7.2 g/dL (6.6-8.7)
[2022-10-07 14:22] LABS: Alcohol Level < 10 mg/dL (0-10)
[2022-10-07] MEDS: ketorolac 30 mg/mL INJ IVP (15:26)
[2022-10-07] MEDS: methocarbamol 750 mg Tablet PO (15:28)
[2022-10-07] MEDS: dexamethasone 10 mg/mL INJ IVP (15:33)
== END 2022-10-07 16:26 | disposition home or self-care (01) ==
PROVIDERS: Emergency Provider Emergency Medicine; PCP Family Medicine
DX: G89.29 Other chronic pain (principal); M54.50 Low back pain, unspecified; R41.0 Disorientation, unspecified; E87.1 Hypo-osmolality and hyponatremia; E86.0 Dehydration; Z79.4 Long term (current) use of insulin; F17.210 Nicotine dependence, cigarettes, uncomplicated; E11.9 Type 2 diabetes mellitus without complications; E78.5 Hyperlipidemia, unspecified; I10 Essential (primary) hypertension
CPT/HCPCS: 36416; 70450; 71045; 72131; 80053; 80307; 82962; 84443; 85025; 85610; 85730; 86140; 93005; 96374; 96375; 99285; J1100; J1885; J2405; J7030

== ENCOUNTER → 2022-10-10 15:06 | Outpatient (BNVA) | payer MEDICARE, MEDICAID, SELFPAY | PROVIDERS: PCP Family Medicine; Visit Provider Specialist | DX: G43.711 Chronic migraine without aura, intractable, with status migrainosus (principal) | CPT/HCPCS: 64615; J0585 ==

== ENCOUNTER → 2023-01-09 11:11 | Outpatient (BNVA) | payer MEDICARE, MEDICAID, SELFPAY | PROVIDERS: PCP Family Medicine; Visit Provider Specialist | DX: G43.711 Chronic migraine without aura, intractable, with status migrainosus (principal) | CPT/HCPCS: 64615; J0585 ==

== ENCOUNTER → 2023-01-20 12:34 | Outpatient (BNVA) | payer MEDICARE, MEDICAID, SELFPAY | PROVIDERS: PCP Family Medicine; Visit Provider Nurse Practitioner Family | DX: R31.9 Hematuria, unspecified (principal); N39.0 Urinary tract infection, site not specified | CPT/HCPCS: 80053; 81000; 85025; 87077; 87086; 87184 ==

== ENCOUNTER → 2023-01-22 11:03 | Outpatient (BNVA) | payer MEDICARE, MEDICAID, SELFPAY | PROVIDERS: PCP Family Medicine; Visit Provider Specialist | DX: M25.512 Pain in left shoulder | CPT/HCPCS: 73030; 99204 ==

== ENCOUNTER 2023-01-25 09:55 | Inpatient (IN) | payer MEDICARE, MEDICAID, SELFPAY ==
[2023-01-25] VITALS (26 sets, daily range): BP systolic 100–168; BP diastolic 61–119; PULSE 77–119; RESP 17–34; TEMP 36.8–39.4; O2SAT 85–96; BMI 39.4
--- NOTE | 2023-01-25 10:04 | XRR_ITS ---
PROCEDURE INFORMATION: Exam: XR Chest Exam date and time: 01/25/2023 11:10 AM Age: 47 years old Clinical indication: Shortness of breath and other: Nausea; Additional info: SOB TECHNIQUE: Imaging protocol: Radiologic exam of the chest. Views: 1 view. COMPARISON: CR XR chest 1V portable [id number] 10/07/2022 11:58 AM FINDINGS: Lungs: Unremarkable. No consolidation. Pleural spaces: Unremarkable. No pleural effusion. No pneumothorax. Heart/Mediastinum: Unremarkable. No cardiomegaly. Bones/joints: Unremarkable. XR/XR chest 1V portable [id number] IMPRESSION: No acute findings.
--- NOTE | 2023-01-25 10:04 | ECG_ITS ---
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 Measurements Intervals [place] Rate: 113 P: 62 TX: 156 QRS: 27 QRSD: 92 T: 19 QT: 342 QTc: 470 Interpretive Statements SINUS TACHYCARDIA POSSIBLE LEFT ATRIAL ENLARGEMENT [-0.1mV P-WAVE IN V1/V2] INDETERMINATE AXIS INCOMPLETE RIGHT BUNDLE BRANCH BLOCK [90+ ms QRS DURATION, TERMINAL R IN V1/V2, 40+ ms S IN I/aVL/V4/V5/V6] POSSIBLE ANTERIOR MYOCARDIAL INFARCTION , OF INDETERMINATE AGE [30 ms Q WAVE IN V3/V4, OR R < 0.2 mV IN V4] Compared to ECG 10/07/2022 13:21:51 Indeterminate axis now present Incomplete right bundle-branch block now present Myocardial infarct finding now present Sinus rhythm no longer present Electronically Signed On 01-25-2023 16:24:32 CDT by Isa Rosario M.D. [id number]
--- NOTE | 2023-01-25 10:04 | CTR_ITS ---
PROCEDURE INFORMATION: Exam: CT Head Without Contrast Exam date and time: 01/25/2023 11:13 AM Age: 47 years old Clinical indication: Altered mental status/memory loss; Confusion or disorientation; Additional info: AMS TECHNIQUE: Imaging protocol: Computed tomography of the head without contrast. Radiation optimization: All CT scans at this facility use at least one of these dose optimization techniques: automated exposure control; mA and/or kV adjustment per patient size (includes targeted exams where dose is matched to clinical indication); or iterative reconstruction. REPORTING DATA: Count of CT and Cardiac NM exams in prior 12 months: This patient has received 2 known CTs and 0 known cardiac nuclear medicine studies in the 12 months prior to the current study. COMPARISON: CT head wo con* [id number] 10/07/2022 12:50 PM RADIATION DOSE METRICS: Total DLP (mGy-cm): 1077.8 FINDINGS: Brain: Intracranial atherosclerosis. No acute intracranial hemorrhage. No mass effect. Normal differentiation of bauer-white matter. Cerebral ventricles: No ventriculomegaly. Paranasal sinuses: Paranasal sinuses are clear. Mastoid air cells: Mastoid air cells are clear. Orbital cavities: Orbits are within normal limits. Bones/joints: No acute osseous findings. Soft tissues: Superficial soft tissues are within normal limits. CT/CT head wo con* [id number] IMPRESSION: No acute intracranial findings.
--- NOTE | 2023-01-25 10:07 | W.ED.WEAKNES ---
HPI - Weakness General: Chief complaint: Weakness Stated complaint: AMS Time Seen by Provider: 01/25/23 09:55 Source: patient Mode of arrival: ambulatory Limitations: no limitations History of Present Illness: 47-year-old female states that she has been having weakness confusion really over the last 2 weeks she was recently diagnosed with a UTI states over the last 2 days its gotten much worse she states she has had frequent falls is fallen 8-10 times. She states that she has had some slight dyspnea she is hypoxic here she is requiring 3 L here she is not on oxygen at home she denies any cough she has had nausea and vomiting as well. Associated symptoms: Reports confusion, headache(s), nausea and vomiting; Denies chest pain, chills or fever(s) Review of Systems Const: Reports: fatigue and malaise; Denies: fever(s) or chills Eyes: Denies: blurry vision or eye discomfort ENMT: Denies: throat pain or dental pain Card: Denies: chest pain Resp: Reports: dyspnea GI: Reports: nausea and vomiting; Denies: abdominal pain or diarrhea Musc: Denies: neck pain or back pain Skin/Breast: Denies: rash Neuro: Reports: headache(s), difficulty walking and confusion PFSH ED PFSH: Medical History Chronic post-traumatic stress disorder (PTSD) Diabetes mellitus Generalized anxiety disorder Hyperlipidemia Hypertension Hypothyroid Major depressive disorder, recurrent, moderate See subjective information below. Psychiatric care Surgical History History of endometrial ablation S/P cholecystectomy Family History Mother Myocardial infarct Hypertension COPD (chronic obstructive pulmonary disease) CHF (congestive heart failure) Dementia Father Hypertension Diabetes Social History Smoking and tobacco status: current every day smoker cigarettes Packs smoked per day: 1 Years cigarettes smoked: 21 Quit status (tobacco): has tried quititng Second hand smoke exposure: No Alcohol intake: never Substance/Drug Use: never Adopted: No Caregiver/support person: No Lives independently: Yes Household members: family Housing: House Marital status: Single Number of children: 1 Highest education level completed: Associate Degree: Occupational, Technical, Vocational Program service: No Current occupational status: disabled Pets and animals: No Sexually active: Yes Do you think of yourself as: Straight/Heterosexual Current gender identity: Female Special mckayla needs: No Physical Exam Const: COMMON NORMALS: patient oriented x3 GENERAL APPEARANCE: in distress HENMT: COMMON NORMALS: normocephalic and atraumatic HEAD & SCALP: normocephalic and atraumatic Eye: COMMON NORMALS: Equal, round and reactive pupils present and EOMs intact bilaterally PUPIL: Yes Equal, round and reactive pupils present Neck/C-Spine: COMMON NORMALS: full ROM and supple Chest: COMMONS NORMALS: normal inspection of the chest and normal palpation of entire chest wall Resp: COMMON NORMALS: normal respiratory effort, No retractions, No use of accessory muscles and clear to auscultation bilaterally AUSCULTATION: clear to auscultation bilaterally Cardio: COMMON NORMALS: regular rhythm and No murmurs present (Cardio) RATE: tachycardic RHYTHM: regular rhythm GI: COMMON NORMALS: Normal to inspection, nondistended, normoactive bowel sounds present, Soft to palpation, non-tender and no masses PALPATION: Yes Soft to palpation Extremity: COMMON NORMALS: normal to inspection and full ROM Neuro: COMMON NORMALS: patient oriented x3, moves all extremities and no focal motor deficits CRANIAL NERVES: Yes CN normal except as noted MOTOR EXAM: 5/5 motor strength present throughout Psych: COMMON NORMALS: mental status grossly normal, Normal thought process present and cooperative THOUGHT PROCESS: Normal thought process present Skin: COMMON NORMALS: no rashes or lesions noted and no wounds GENERAL SKIN EXAM: no rashes or lesions noted Course Vital Signs: Vital signs: Vital Signs Temperature 98.2 F 01/25/23 09:59 Pulse Rate 94 01/25/23 13:00 Respiratory Rate 20 H 01/25/23 09:59 Blood Pressure 101/65 01/25/23 11:30 Pulse Oximetry 93 01/25/23 13:00 Oxygen Delivery Me thod Nasal Cannula 01/25/23 13:00 Oxygen Flow Rate 3 01/25/23 13:00 MDM - Weakness Medical Decision Making Patient presents here with confusion along with weakness is likely from her hyponatremia her sodium level here is 122 she is also COVID-positive CT shows a bilateral infiltrates she is also hypoxic I spoke to hospitalist will admit the ICU. Medical Records I reviewed the patient's medical records. Lab Data I reviewed the patient's lab results. 01/25/23 11:00 01/25/23 10:45 Radiology Impressions Chest X-Ray 01/25/23 10:04 IMPRESSION: No acute findings. Head CT 01/25/23 10:04 IMPRESSION: No acute intracranial findings. Laboratory Results WBC 12.88 10^3/uL (3.29-11.43) H 01/25/23 11:00 RBC 5.09 10^6/uL (3.85-5.65) 01/25/23 11:00 Hgb 14.60 g/dL (11.27-16.99) 01/25/23 11:00 Hct 43.0 % (36-47) 01/25/23 11:00 MCV 84.5 fl (85-98) L 01/25/23 11:00 MCH 28.7 pg (27-33) 01/25/23 11:00 MCHC 34.0 g/dL (30-55) 01/25/23 11:00 RDW 13.2 % (12.1-15.1) 01/25/23 11:00 Plt Count 266 10^3/cmm (157-399) 01/25/23 11:00 MPV 9.1 fL (7.4-10.4) 01/25/23 11:00 Neut % (Auto) 89.3 % 01/25/23 11:00 Lymph % (Auto) 6.8 % 01/25/23 11:00 [place] % (Auto) 2.9 % 01/25/23 11:00 Eos % (Auto) 0.2 % 01/25/23 11:00 Baso % (Auto) 0.3 % 01/25/23 11:00 Neut # (Auto) 11.51 10^3/uL (1.8-7.7) H 01/25/23 11:00 Lymph # (Auto) 0.9 10^3/uL (0.8-4.8) 01/25/23 11:00 [place] # (Auto) 0.4 10^3/uL (0.2-0.9) 01/25/23 11:00 Eos # (Auto) 0.0 10^3/uL (0.0-0.8) 01/25/23 11:00 Baso # (Auto) 0.0 10^3/uL (0.0-0.1) 01/25/23 11:00 Nucleated RBC % (auto) 0 % 01/25/23 11:00 Nucleated RBCs # 0.0 /100WBC 01/25/23 11:00 APTT 25.8 SECONDS (23.9-36.7) 01/25/23 11:00 D-Dimer 1.94 ug/mLFEU (0-0.59) H 01/25/23 11:00 Specimen Type Arterial 01/25/23 10:22 Sample Site Radial, left 01/25/23 10:22 ABG pH 7.45 (7.35-7.45) 01/25/23 10:22 ABG pCO2 35.3 mmHg (35-45) 01/25/23 10:22 ABG pO2 59.5 mmHg (80.0-100.0) L 01/25/23 10:22 ABG HCO3 24.6 mmol/L (22-26) 01/25/23 10:22 ABG Base Excess 1.0 mmol/L (-2.0-2.0) 01/25/23 10:22 Joshua Test Pos 01/25/23 10:22 Hematocrit 43.6 % (37-47) 01/25/23 10:22 O2 Delivery Device Nc 01/25/23 10:22 O2 Liters/Min 3.0 % 01/25/23 10:22 Sales Director ID Solomon 01/25/23 10:22 Sodium 122 mmol/L (136-145) L 01/25/23 10:45 Potassium 4.1 mmol/L (3.5-5.1) 01/25/23 10:45 Chloride 82 mmol/L (98-107) L 01/25/23 10:45 Carbon Dioxide 25 mmol/L (22-29) 01/25/23 10:45 Anion Gap 19.1 (5-19) H 01/25/23 10:45 BUN 20 mg/dL (6-20) 01/25/23 10:45 Creatinine 1.2 mg/dL (0.5-0.9) H 01/25/23 10:45 GFR Calculation 47.9 mL/min (90-130) L 01/25/23 10:45 Glucose 334 mg/dL (65-115) H 01/25/23 10:45 POC Glucose 327 mg/dL (70-110) H 01/25/23 10:52 Calculated Osmolality 270 mOsm/kg (285-295) L 01/25/23 10:45 Lactic Acid 2.1 mmol/L (0.5-2.2) 01/25/23 10:45 Calcium 8.9 mg/dL (8.5-10.5) 01/25/23 10:45 Magnesium 1.7 mg/dL (1.7-2.3) 01/25/23 10:45 Total Bilirubin 0.7 mg/dL (0.15-1.2) 01/25/23 10:45 AST 42 U/L (0-32) H 01/25/23 10:45 ALT 31 U/L (0-33) 01/25/23 10:45 Alkaline Phosphatase 207 U/L (35-105) H 01/25/23 10:45 Troponin T Baseline 15 ng/L (0-10) H 01/25/23 10:45 NT-Pro-B Natriuret Pep 50 pg/mL (0-125) 01/25/23 10:45 Total Protein 7.1 g/dL (6.6-8.7) 01/25/23 10:45 Albumin 3.9 g/dL (3.5-5.2) 01/25/23 10:45 Globulin 3.2 g/dL (1.3-4.6) 01/25/23 10:45 Lipase 12 U/L (13-60) L 01/25/23 10:45 Urine Color Yellow (Yellow) 01/25/23 11:30 Urine Appearance Clear (CLEAR) 01/25/23 11:30 Urine pH 5 (5-7) 01/25/23 11:30 Ur Specific [place] 1.015 (1.005-1.030) 01/25/23 11:30 Urine Protein Neg (Negative) 01/25/23 11:30 Urine Glucose (UA) 2+ (Normal) H 01/25/23 11:30 Urine Ketones 1+ (Negative) H 01/25/23 11:30 Urine Blood Neg (Negative) 01/25/23 11:30 Urine Nitrate Negative (Negative) 01/25/23 11:30 Urine Bilirubin Neg (Negative) 01/25/23 11:30 Urine Urobilinogen Norm mg/dL (Negative) 01/25/23 11:30 Ur Leukocyte Esterase Negative (Negative) 01/25/23 11:30 Urine Opiates Screen Positive ng/mL (Negative) H 01/25/23 11:30 Ur Barbiturates Screen Negative ng/mL (Negative) 01/25/23 11:30 Ur Phencyclidine Scrn Negative ng/mL (Negative) 01/25/23 11:30 Ur Amphetamines Screen Negative ng/mL (Negative) 01/25/23 11:30 U Benzodiazepines Scrn Positive ng/mL (Negative) H 01/25/23 11:30 Urine Cocaine Screen Negative ng/mL (Negative) 01/25/23 11:30 U Marijuana (THC) Screen Negative ng/mL (Negative) 01/25/23 11:30 Ethyl Alcohol < 10 mg/dL (0-10) 01/25/23 10:45 SARS-CoV-2 Ag (Rapid) Positive (Negative) H 01/25/23 10:45 All radiology interpretation(s) finalized by discharge EKG Data EKG 1: I personally reviewed and interpreted this EKG as follows: EKG interpretation date: 01/25/23 EKG interpretation time: 10:07 Interpretation: sinus tach hf [address] or t wave abonrmalities qrs 92 qtc 409 Critical Care Time Critical Care Time: Critical Care Time: Yes Total Critical Care Time: 45 Attestation: The high probability of a clinically significant, sudden or life threatening deterioration of the patient's resp system(s) required my full and direct attention, intervention and personal management. The critical care time is as shown. This time is in addition to time spent performing any reported procedures but includes the following: [x] Data and vital sign review and interpretation [x] Patient assessment, examination and intervention [x] Documentation [x] Medication orders and management Discharge Plan Discharge Patient Disposition: Admitted As Inpatient Clinical Impression: COVID-19, Acute hyponatremia, Acute respiratory failure with hypoxia Condition: Stable Prescriptions: No Action Lantus Solostar U-100 Insulin 100 unit/mL (3 mL) insulin pen 66 unit SUBCUT BEDTIME hydrocodone-acetaminophen 10-325 mg tablet 1 tab PO TID PRN (Reason: Pain) nitrofurantoin monohyd/m-cryst [Macrobid] 100 mg capsule 100 mg PO Q12H 7 Days Qty: 14 0RF Rx Instructions: FOR 7 DAYS (RX FILLED 01/20/23) must administer with a meal/food clonazepam 2 mg tablet 2 mg PO BID Qty: 60 1RF (DME) OneTouch Ultra Test Strip See Rx Instructions .Route Qty: 120 5RF Rx Instructions: As directed (DME) insulin syringe-needle U-100 [Advocate Syringes] 1 mL 30 gauge x 5/16 syringe See Rx Instructions .Route Qty: 300 3RF Rx Instructions: As directed (DME) FreeStyle Isiah 2 [place] Misc See Rx Instructions .Route Qty: 1 0RF Rx Instructions: As directed (DME) FreeStyle Isiah 2 Sensor Kit See Rx Instructions .Route Qty: 6 0RF Rx Instructions: As directed prazosin 2 mg capsule 2 mg PO BEDTIME Qty: 90 0RF (DME) pen needle, diabetic [BD Dolores 2nd Gen Pen Needle] 32 gauge x 5/32 needle See Rx Instructions .ROUTE .COMPLEX Qty: 400 4RF Dose Instruction: USE UP TO 4 TIMES DAILY Rx Instructions: USE UP TO 4 TIMES DAILY insulin lispro [Humalog KwikPen Insulin] 100 unit/mL insulin pen See Rx Instructions .ROUTE .COMPLEX Qty: 15 5RF Dose Instruction: INJECT 20 UNITS SUBCUTANEOUSLY THREE TIMES DAILY WITH MEALS Rx Instructions: SLIDING SCALE SUBCUTANEOUSLY THREE TIMES DAILY WITH MEALS atorvastatin [Lipitor] 40 mg Tablet 40 mg PO BEDTIME gabapentin 600 mg tablet 600 mg PO TID levothyroxine 100 mcg Tablet 100 mcg PO QAM lisinopril 40 mg tablet 40 mg PO QAM ibuprofen 800 mg tablet 800 mg PO TID PRN (Reason: Pain) Fish Oil 120-180 mg Capsule 1 cap PO QAM amitriptyline 150 mg tablet 150 mg PO BEDTIME tizanidine 4 mg tablet 4 mg PO BID PRN (Reason: Muscle Spasm) metoprolol succinate 25 mg tablet extended release 24 hr 25 mg PO BID naloxone 4 mg/actuation spray,non-aerosol See Rx Instructions .ROUTE .COMPLEX Rx Instructions: intranasally DIRECTED NEEDED escitalopram oxalate 10 mg tablet 20 mg PO QAM Referrals: Cyrus Vigil DO [Primary Care Provider] - Coding Level of Care Code ED Abrasive Mixer Helper for Chg Laura
[2023-01-25 10:34] LABS: ABG PCO2 35.3 mmHg (35-45); ABG PH Result 7.45 (7.35-7.45); Arterial Blood Gas Hematocrit 43.6 % (37-47); Blood Gas Allen Test Pos; Blood Gas Sample Site Radial, left; Blood Gas Sample Type Arterial; HCO3 ABG 24.6 mmol/L (22-26); Oxygen Device NC; PO2 ABG 59.5 mmHg (80.0-100.0)
--- NOTE | 2023-01-25 10:44 | PC.PHAR ---
PT STATES SHE TAKES CARE OF HER OWN MEDICATIONS-PT STATES HER AMLODIPINE 10MG DAILY FILLED 10/31/22 90D/S AND DONEPEZIL 10MG HS FILLED 12/06/22 90D/S WAS DCED-PT STATES SHE USES SS TID ON HUMALOG KWIKPEN RX FILLED FOR 20 UNITS TID ON 01/20/23 25D/S-PT STATES SHE FINISHED MACROBID 100MG BID ON 01/24/23 RX FILLED 01/20/23 7D/S-
[2023-01-25 10:55] LABS: Glucose Point of Care 327 mg/dL (70-110)
[2023-01-25] MEDS: sodium chloride 0.9% 1,000 ML 999 ML IV (11:08)
[2023-01-25] MEDS: ondansetron 2 mg/ML SDV 2 mL 4 MG IVP (11:08)
[2023-01-25 11:14] LABS: Basophils % 0.3 %; Eosinophils % 0.2 %; Lymphocytes # 0.9 10^3/uL (0.8-4.8); Lymphocytes % 6.8 %; Mean Corpuscular Hemoglobin 28.7 pg (27-33); Mean Corpuscular Volume 84.5 fl (85-98); Mean Platelet Volume 9.1 fL (7.4-10.4); Monocytes # 0.4 10^3/uL (0.2-0.9); Monocytes % 2.9 %; Neutrophils # 11.51 10^3/uL (1.8-7.7); Neutrophils % 89.3 %; Nucleated Red Blood Cells % 0 %; Platelet Count 266 10^3/cmm (157-399); Red Blood Count 5.09 10^6/uL (3.85-5.65); Red Cell Distribution Width 13.2 % (12.1-15.1); White Blood Count 12.88 10^3/uL (3.29-11.43)
[2023-01-25 11:30] LABS: Partial Thromboplastin Time 25.8 SECONDS (23.9-36.7)
[2023-01-25 11:31] LABS: D Dimer 1.94 ug/mLFEU (0-0.59)
--- NOTE | 2023-01-25 11:33 | CTR_ITS ---
PROCEDURE INFORMATION: Exam: CTA Chest With Contrast Exam date and time: 01/25/2023 12:39 PM Age: 47 years old Clinical indication: Shortness of breath; Additional info: SOB TECHNIQUE: Imaging protocol: Computed tomographic angiography of the chest with contrast. Exam focused on the arteries. 3D rendering (Not supervised by radiologist): MIP and/or 3D reconstructed images were created by the technologist. Radiation optimization: All CT scans at this facility use at least one of these dose optimization techniques: automated exposure control; mA and/or kV adjustment per patient size (includes targeted exams where dose is matched to clinical indication); or iterative reconstruction. Contrast material: OMNI 350; Contrast volume: 100 ml; Contrast route: INTRAVENOUS (IV); REPORTING DATA: Count of CT and Cardiac NM exams in prior 12 months: This patient has received 2 known CTs and 0 known cardiac nuclear medicine studies in the 12 months prior to the current study. COMPARISON: CR (CHEST, ) 01/25/2023 11:10 AM RADIATION DOSE METRICS: Total DLP (mGy-cm): 886.81 FINDINGS: Pulmonary arteries: No central pulmonary thromboembolism. Aorta: Minimal scattered calcific disease. No aortic aneurysm. No aortic dissection. Lungs: Patchy ground-glass and consolidative opacities throughout the bilateral lungs with an inferior predilection. Small amount of fluid in the left interlobar fissure. Pleural spaces: No pleural effusion. No pneumothorax. Heart: No cardiomegaly. No pericardial effusion. Coronary arteries: Coronary artery calcifications. Mediastinal space: Small amount of fluid in the esophagus. This can be seen with gastroesophageal reflux. Lymph nodes: Prominent sub threshold mediastinal lymph nodes, likely reactive. Bones/joints: No acute osseous findings. Soft tissues: Superficial soft tissues are within normal limits. CT/CT angio chest PE protcl [id number] IMPRESSION: 1. Patchy ground-glass and consolidative opacities throughout the bilateral lungs, as above. Findings likely represent multi lobar pneumonia. 2. No central pulmonary thromboembolism.
[2023-01-25 11:37] LABS: Add Urine Microscopic? NO; Charge for UA Resulting for Rev
[2023-01-25 11:39] LABS: Lactic Sepsis W/Reflex 2.1 mmol/L (0.5-2.2)
[2023-01-25 11:40] LABS: Troponin(5th) Baseline 15 ng/L (0-10)
[2023-01-25 11:45] LABS: Alanine Aminotransferase 31 U/L (0-33); Albumin Level 3.9 g/dL (3.5-5.2); Alkaline Phosphatase 207 U/L (35-105); Anion Gap 19.1 (5-19); Aspartate Amino Transferase 42 U/L (0-32); Blood Urea Nitrogen 20 mg/dL (6-20); Calcium 8.9 mg/dL (8.5-10.5); Carbon Dioxide 25 mmol/L (22-29); Chloride 82 mmol/L (98-107); Globulin 3.2 g/dL (1.3-4.6); Glomerular Filtration Rate 47.9 mL/min (90-130); Glucose 334 mg/dL (65-115); Lipase 12 U/L (13-60); Magnesium 1.7 mg/dL (1.7-2.3); NT Pro B Type Natriuretic Pept 50 pg/mL (0-125); Osmolality Calculated 270 mOsm/kg (285-295); Potassium 4.1 mmol/L (3.5-5.1); Sodium 122 mmol/L (136-145); Total Bilirubin 0.7 mg/dL (0.15-1.2); Total Protein 7.1 g/dL (6.6-8.7)
[2023-01-25 11:50] LABS: Alcohol Level < 10 mg/dL (0-10)
[2023-01-25] MEDS: HYDROcodone-acetaminophen 10-325 mg Tablet 1 TAB PO (11:50)
[2023-01-25 11:55] LABS: Bilirubin Urine Neg (Negative); Blood Urine Neg (Negative); Glucose Urine UA 2+ (Normal); Ketones Urine 1+ (Negative); Leukocyte Esterase Urine Negative (Negative); Nitrate Urine Negative (Negative); Protein Urine Neg (Negative); Specific Gravity, Urine 1.015 (1.005-1.030); Urine Appearance Clear (CLEAR); Urine Color Yellow (Yellow); Urobilinogen Urine Norm (Negative); pH Urine 5 (5-7)
[2023-01-25 11:57] LABS: Amphetamines Screen Urine Negative (Negative); Barbiturates Screen Urine Negative (Negative); Benzodiazepines Screen Urine Positive (Negative); Cocaine Screen Urine Negative (Negative); Opiate Screen Urine Positive (Negative); PCP Screen Urine Negative (Negative); THC Screen Urine Negative (Negative)
--- NOTE | 2023-01-25 12:02 | ECG_ITS ---
[facility] [facility] Date: 2023-01-25 Pat Name: Rachel Perze Department: Room: Gender: Female [employer] Cann[employer]er: : 1975 Requested By: Ang Huizar Order Number: [id number] Alejandro MD: Isa Rosario M.D. Measurements Intervals [place] Rate: 93 P: 59 CO: 168 QRS: 63 QRSD: 110 T: 15 QT: 380 QTc: 475 Interpretive Statements SINUS RHYTHM INCOMPLETE RIGHT BUNDLE BRANCH BLOCK [90+ ms QRS DURATION, TERMINAL R IN V1/V2, 40+ ms S IN I/aVL/V4/V5/V6] Compared to ECG 10/07/2022 13:21:51 Incomplete right bundle-branch block now present Electronically Signed On 01-25-2023 12:11:54 CDT by Isa Rosario M.D. [id number]
[2023-01-25 12:06] LABS: Reflex Lactate Order REFLEX LACTIC ORDERD
[2023-01-25 12:41] LABS: SARS Covid-2 Antigen Positive (Negative)
[2023-01-25] MEDS: iohexol 350 mg/mL 500 mL Btl (per mL) IV (12:58)
[2023-01-25 13:28] LABS: Troponin 5 2HR 13.68 ng/L (0-10)
[2023-01-25 13:33] LABS: Troponin 5 2HR Delta -1.32 ABS# (0-10)
--- NOTE | 2023-01-25 13:48 | P.HP_ITS ---
Providers/Chief Complaint Admitting Physician: Pedro Mackay MD Primary Care Provider: Cyrus Vigil DO Chief Complaint: AMS History of Present Illness Rachel Perez is a 47 year old female father, diabetic, presented with chief complaint of fever, shortness of breath. Patient stating that she has been struggling with the symptoms for the last week and a half, today she was getting more short of breath and hypoxia decided to come to the hospital for further evaluation. She was hypoxic requiring 4 L of oxygen, chest x-ray showing groundglass opacities, CTA rule out PE consistent with COVID-19 related infection. Patient is hyponatremic, she is stating that she drinks 7 cans of soda on a daily basis. She normally gets low sodium however she is not sure about the etiology I have consulted nephrology for hyponatremia, patient has been admitted to ICU She is not confused at the time of evaluation however endorsing fatigue and lethargy She is endorsing vaccination for COVID-19, she is stating that fever at home was around 101 Review of Systems Const: Reports: fever(s) and chills Eyes: Denies: change in vision ENMT: Denies: throat pain Card: Denies: chest pain Resp: Reports: dyspnea GI: Reports: nausea : Denies: flank pain Musc: Denies: neck pain Skin/Breast: Denies: rash Neuro: Reports: headache(s) Medications/Allergies Home Medications Medication Instructions Recorded Confirmed Last Taken Type insulin glargine 100 unit/mL (3 66 unit SUBCUT BEDTIME 09/21/19 01/25/23 01/24/23 History mL) subcutaneous pen (Lantus Solostar U-100 Insulin) atorvastatin 40 mg tablet (Lipitor) 40 mg PO BEDTIME 01/24/20 01/25/23 10/06/22 History gabapentin 600 mg tablet 600 mg PO TID 02/21/20 01/25/23 01/25/23 History levothyroxine 100 mcg tablet 100 mcg PO QAM 02/21/20 01/25/23 01/25/23 History lisinopril 40 mg tablet 40 mg PO QAM 02/21/20 01/25/23 01/25/23 History blood sugar diagnostic (OneTouch #120 ea 09/06/21 01/25/23 Unknown Rx Ultra Test strips) hydrocodone 10 mg-acetaminophen 1 tab PO TID PRN Pain 11/06/21 01/25/23 Unknown History 325 mg tablet insulin syringe-needle U-100 1 mL #300 ea 11/22/21 01/25/23 Unknown Rx 30 gauge x 5/16 (Advocate Syringes) flash glucose scanning reader #1 ea 08/16/22 01/25/23 Unknown Rx (FreeStyle Isiah 2 [place]) amitriptyline 150 mg tablet 150 mg PO BEDTIME 10/07/22 01/25/23 10/06/22 History docosahexaenoic acid (dha)-epa 120 1 cap PO QAM 10/07/22 01/25/23 01/25/23 History mg-180 mg capsule (Fish Oil) ibuprofen 800 mg tablet 800 mg PO TID PRN Pain 10/07/22 01/25/23 Unknown History flash glucose sensor (FreeStyle #6 ea 11/13/22 01/25/23 Unknown Rx Isiah 2 Sensor kit) prazosin 2 mg capsule 2 mg PO BEDTIME #90 caps 12/19/22 01/25/23 01/24/23 Rx clonazepam 2 mg tablet 2 mg PO BID anxiety/panic #60 tabs 12/31/22 01/25/23 01/25/23 Rx pen needle, diabetic 32 gauge x #400 ea 01/04/23 01/25/23 Unknown Rx (BD Dolores 2nd Gen Pen Needle) insulin lispro 100 unit/mL See Rx Instructions .Route 01/17/23 01/25/23 Unknown Rx subcutaneous pen (Humalog KwikPen .COMPLEX #15 mL (U-100) Insulin) nitrofurantoin 100 mg PO Q12H 7 days #14 caps 01/20/23 01/25/23 01/24/23 Rx monohydrate/macrocrystals 100 mg PT STATES capsule (Macrobid) FINISHED 9 escitalopram oxalate 10 mg tablet 20 mg PO QAM OCD 01/25/23 01/25/23 01/25/23 History metoprolol succinate 25 mg 25 mg PO BID 01/25/23 01/25/23 01/25/23 History tablet,extended release 24 hr naloxone 4 mg/actuation nasal spray See Rx Instructions .Route .COMPLEX 01/25/23 01/25/23 Unknown History tizanidine 4 mg tablet 4 mg PO BID PRN Muscle Spasm 01/25/23 01/25/23 Unknown History Allergies Allergy/AdvReac Type Severity Reaction Status Date / Time midazolam [From Versed] Allergy Severe angry Verified 01/25/23 10:33 prochlorperazine Allergy Severe makes her Verified 01/25/23 10:33 [From Compazine] angry liraglutide [From Victoza] Allergy GI effects Verified 01/25/23 10:33 semaglutide [From Ozempic] Allergy GI effects Verified 01/25/23 10:33 PFSH Acute PFSH: Medical History Chronic post-traumatic stress disorder (PTSD) Diabetes mellitus Generalized anxiety disorder Hyperlipidemia Hypertension Hypothyroid Major depressive disorder, recurrent, moderate See subjective information below. Psychiatric care Surgical History History of endometrial ablation S/P cholecystectomy Family History Mother Myocardial infarct Hypertension COPD (chronic obstructive pulmonary disease) CHF (congestive heart failure) Dementia Father Hypertension Diabetes Social History Smoking and tobacco status: current every day smoker cigarettes Packs smoked per day: 1 Years cigarettes smoked: 21 Quit status (tobacco): has tried quititng Second hand smoke exposure: No Alcohol intake: never Substance/Drug Use: never Adopted: No Caregiver/support person: No Lives independently: Yes Household members: family Housing: House Marital status: Single Number of children: 1 Highest education level completed: Associate Degree: Occupational, Technical, Vocational Program service: No Current occupational status: disabled Pets and animals: No Sexually active: Yes Do you think of yourself as: Straight/Heterosexual Current gender identity: Female Special mckayla needs: No Vitals/I&O/Wt Last Vital Signs Temp 98.2 F 01/25/23 09:59 Pulse 94 01/25/23 13:00 Resp 20 H 01/25/23 09:59 BP 101/65 01/25/23 11:30 Pulse Ox 93 01/25/23 13:00 O2 Del Method Nasal Cannula 01/25/23 13:00 O2 Flow Rate 3 01/25/23 13:00 Weight last 48 hrs Weight 104.326 kg Physical Exam Narrative: Clinically dehydrated GCS 15 Nonfocal neuro exam Fatigue lethargic Able to answer questions Pupils are symmetrical Nonfocal neuro exam Currently on 4 L No audible stridor or wheezing Data 01/25/23 11:00 01/25/23 10:45 Micro: Microbiology 01/25/23 10:45 Blood Culture - Preliminary Blood SPECIMEN COLLECTED 01/25/23 10:17 Blood Culture - Preliminary Blood SPECIMEN COLLECTED A&P Assessment and plan (1) COVID-19: (2) Acute hyponatremia: (3) Acute respiratory failure with hypoxia: (4) OCD (obsessive compulsive disorder): (5) Insomnia: (6) Morbid obesity: (7) Diabetes 1.5, managed as type 1: (8) Nicotine dependence, cigarettes, with unspecified nicotine-induced disorders: (9) Hypothyroid: Qualifiers: Hypothyroidism type: acquired Qualified Code(s): E03.9 - Hypothyroidism, unspecified (10) Stage 3 chronic kidney disease due to diabetes mellitus: (11) Diabetic neuropathy: (12) Chronic post-traumatic stress disorder (PTSD): Plan Acute hypoxia COVID-19 related I will put patient on empirical antibiotic coverage No signs of PE however D-dimer is high Monitor inflammatory markers Currently on 4 L nasal cannula Start remdesivir and Decadron Acute on chronic hyponatremia Hyperglycemia Drinks 7 cans of soda every day Nephrology consulted Poor IV access, status post PICC line placement Lizama catheter will be placed as well Consistent carb diet with insulin sliding scale Check A1c level. BARAK related to dehydration monitor with fluid hydration overnight Full code Attestations Medical Necessity Statement*: Continue ICU management Diagnoses COVID-19 U07.1 Acute hyponatremia E87.1 Acute respiratory failure with hypoxia J96.01 OCD (obsessive compulsive disorder) F42.9 Insomnia G47.00 Morbid obesity E66.01 Diabetes 1.5, managed as type 1 E13.9 Nicotine dependence, cigarettes, with unspecified nicotine-induced disorders F17.219 Hypothyroid E03.9 Hypothyroidism type: acquired Stage 3 chronic kidney disease due to diabetes mellitus E11.22; N18.30 Diabetic neuropathy E11.40 Chronic post-traumatic stress disorder (PTSD) F43.12
[2023-01-25] MEDS: remdesivir 200 MG in sodium chloride 0.9% (100 ml) 60 ML 100 MG IV (14:41)
[2023-01-25 14:46] LABS: Procalcitonin 2.85 ng/mL (0-0.5); Thyroid Stimulating Hormone 0.72 uIU/mL (0.27-4.20)
[2023-01-25 14:55] LABS: D Dimer 1.67 ug/mLFEU (0-0.59)
[2023-01-25 15:01] LABS: Lactic Acid level (Lactate) 1.4 mmol/L (0.5-2.2)
--- NOTE | 2023-01-25 16:37 | XRR_ITS ---
PROCEDURE INFORMATION: Exam: XR Chest Exam date and time: 01/25/2023 4:41 PM Age: 47 years old Clinical indication: Device placement; Picc TECHNIQUE: Imaging protocol: Radiologic exam of the chest. Views: 1 view. COMPARISON: CR (CHEST, ) 01/25/2023 11:10 AM FINDINGS: Tubes, catheters and devices: Right PICC line tip is in the superior vena cava near the cavoatrial junction. Lungs: There is peribronchial infiltrate in both lower lobes and probably also in the middle lobe worrisome for pneumonia. These have increased compared with the chest radiograph 01/25/2023.There is no pulmonary venous congestion. Pleural spaces: Unremarkable. No pleural effusion. No pneumothorax. Heart/Mediastinum: Heart is within normal limits of size. Bones/joints: Unremarkable. XR/XR chest 1V portable 16200 IMPRESSION: 1. Bilateral pneumonia 2. Satisfactory position of PICC line.
--- NOTE | 2023-01-25 16:58 | PC.NURSE ---
Consulted by House Charge for placement for PICC r/t COVID, hyponatremia, and diabetic. Explained procedure to pt and answered questions. Consent signed. Assessed RUE and noted the cephalic vein is best target a 6mm in diameter and free of evidence of thrombus or stenosis. Using US guidance, MST, and sterile technique the R cephalic vein was accessed x 1 stick. Device fed easily. All 3 ports aspirte and flush without difficulty. Device secured and dressed. EBL 5ml. The chest xray ordered and performed. Tip appears to be in RV to me, but pending reading by physician. Will pull back as instructed. No arrhythmia currently. Report to primary nurse. Device is 40 cm long and RUE is 47 cm in circumference at 10 cm above the AC fossa. Pt tolerated well.
--- NOTE | 2023-01-25 17:08 | P.CONIM_ITS ---
Providers/Reason For Consult Consulting Physician/Specialty*: Nephrology /[place] Reason for Consult*: Hyponatremia Attending Physician: Pedro Mackay MD Primary Care Provider: Cyrus Vigil DO History of Present Illness History of Present Illness Rachel Perez is a 47 year old female Patient is a 47-year-old female with past medical history of diabetes, hypertension hypothyroidism history of depression and anxiety was brought to the emergency emergency department due to altered mental status and shortness of breath. Family also reported frequent falls at home. There is a question of polydipsia with poor solute intake. CTA showed no PE . Patient tested positive for COVID. Also had UTI recently. Urine tox screen is positive for opiates and benzos. Review of Systems Narrative: unable to obtain full ROS Medications/Allergies Home Medications Medication Instructions Recorded Confirmed Last Taken Type insulin glargine 100 unit/mL (3 66 unit SUBCUT BEDTIME 09/21/19 01/25/23 3 History mL) subcutaneous pen (Lantus Solostar U-100 Insulin) atorvastatin 40 mg tablet (Lipitor) 40 mg PO BEDTIME 01/24/20 01/25/23 10/06/22 History gabapentin 600 mg tablet 600 mg PO TID 02/21/20 01/25/23 01/25/23 History levothyroxine 100 mcg tablet 100 mcg PO QAM 02/21/20 01/25/23 01/25/23 History lisinopril 40 mg tablet 40 mg PO QAM 02/21/20 01/25/23 01/25/23 History blood sugar diagnostic (OneTouch #120 ea 09/06/21 01/25/23 Unknown Rx Ultra Test strips) hydrocodone 10 mg-acetaminophen 1 tab PO TID PRN Pain 11/06/21 01/25/23 Unknown History 325 mg tablet insulin syringe-needle U-100 1 mL #300 ea 11/22/21 01/25/23 Unknown Rx 30 gauge x 16 (Advocate Syringes) flash glucose scanning reader #1 ea 08/16/22 01/25/23 Unknown Rx (FreeStyle Isiah 2 [place]) amitriptyline 150 mg tablet 150 mg PO BEDTIME 10/07/22 01/25/23 10/06/22 History docosahexaenoic acid (dha)-epa 120 1 cap PO QAM 10/07/22 01/25/23 01/25/23 History mg-180 mg capsule (Fish Oil) ibuprofen 800 mg tablet 800 mg PO TID PRN Pain 10/07/22 01/25/23 Unknown History flash glucose sensor (FreeStyle #6 ea 11/13/22 01/25/23 Unknown Rx Isiah 2 Sensor kit) prazosin 2 mg capsule 2 mg PO BEDTIME #90 caps 12/19/22 01/25/23 01/24/23 Rx clonazepam 2 mg tablet 2 mg PO BID anxiety/panic #60 tabs 12/31/22 01/25/23 01/25/23 Rx pen needle, diabetic 32 gauge x #400 ea 01/04/23 01/25/23 Unknown Rx /32 (BD Dolores 2nd Gen Pen Needle) insulin lispro 100 unit/mL See Rx Instructions .Route 01/17/23 01/25/23 Unknown Rx subcutaneous pen (Humalog KwikPen .COMPLEX #15 mL (U-100) Insulin) nitrofurantoin 100 mg PO Q12H 7 days #14 caps 01/20/23 01/25/23 01/24/23 Rx monohydrate/macrocrystals 100 mg PT STATES capsule (Macrobid) FINISHED 9 escitalopram oxalate 10 mg tablet 20 mg PO QAM OCD 01/25/23 01/25/23 01/25/23 History metoprolol succinate 25 mg 25 mg PO BID 01/25/23 01/25/23 01/25/23 History tablet,extended release 24 hr naloxone 4 mg/actuation nasal spray See Rx Instructions .Route .COMPLEX 01/25/23 01/25/23 Unknown History tizanidine 4 mg tablet 4 mg PO BID PRN Muscle Spasm 01/25/23 01/25/23 Unknown History Allergies Allergy/AdvReac Type Severity Reaction Status Date / Time midazolam [From Versed] Allergy Severe angry Verified 01/25/23 10:33 prochlorperazine Allergy Severe makes her Verified 01/25/23 10:33 [From Compazine] angry liraglutide [From Victoza] Allergy GI effects Verified 01/25/23 10:33 semaglutide [From Ozempic] Allergy GI effects Verified 01/25/23 10:33 PFSH Acute PFSH: Medical History Chronic post-traumatic stress disorder (PTSD) Diabetes mellitus Generalized anxiety disorder Hyperlipidemia Hypertension Hypothyroid Major depressive disorder, recurrent, moderate See subjective information below. Psychiatric care Surgical History History of endometrial ablation S/P cholecystectomy Family History Mother Myocardial infarct Hypertension COPD (chronic obstructive pulmonary disease) CHF (congestive heart failure) Dementia Father Hypertension Diabetes Social History Smoking and tobacco status: current every day smoker cigarettes Packs smoked per day: 1 Years cigarettes smoked: 21 Quit status (tobacco): has tried quititng Second hand smoke exposure: No Alcohol intake: never Substance/Drug Use: never Adopted: No Caregiver/support person: No Lives independently: Yes Household members: family Housing: House Marital status: Single Number of children: 1 Highest education level completed: Associate Degree: Occupational, Technical, Vocational Program service: No Current occupational status: disabled Pets and animals: No Sexually active: Yes Do you think of yourself as: Straight/Heterosexual Current gender identity: Female Special mckayla needs: No Vitals/I&O/Wt Last Vital Signs Temp 98.2 F 01/25/23 09:59 Pulse 80 01/25/23 15:36 Resp 17 01/25/23 15:07 BP 101/65 01/25/23 11:30 Pulse Ox 94 01/25/23 15:07 O2 Del Method Nasal Cannula 01/25/23 15:07 O2 Flow Rate 3 01/25/23 15:07 01/25/23 01/25/23 01/25/23 06:59 14:59 22:59 Intake Total 1100 / 1100 Balance 1100 / 1100 Weight last 48 hrs Weight 104.326 kg Physical Exam Narrative: awake , alert HEENT PEERLA S1 S2 RRR per report Data 01/26/23 06:00 01/26/23 14:35 Micro: Microbiology 01/25/23 10:45 Blood Culture - Preliminary Blood SPECIMEN COLLECTED 01/25/23 10:17 Blood Culture - Preliminary Blood SPECIMEN COLLECTED A&P Assessment and plan (1) Hyponatremia: Plan 1. Hyponatremia: Patient chronically has low sodium levels in the range of low 130s and high 120s range. Likely contributed from meds including Celexa and possible polydipsia, poor solute intake. Ordered work-up including urine sodium and urine osmolality, will check TSH and cortisol levels. -Start normal saline at 50 cc an hour, BMP every 4 hours for the next 24 hours. -Free water restriction to 2 L/day 2.: BRAAK: Creatinine 1.2, started IV fluids, monitor, patient received IV contrast today, monitor renal function closely for contrast nephropathy risk 3. History of hypertension: Hold lisinopril 4. Altered mental status: Partly contributed from low sodium but has benzos and opiates and urine drug screen Patient evaluated using audiovisual cart. Time spent 40 minutes Consult Attestations Medical Necessity Statement: per medicine team Coding Level of Care Code Acute Code for [facility] Diagnoses Hyponatremia E87.1
[2023-01-25 17:25] LABS: Glucose Point of Care 164 mg/dL (70-110)
--- NOTE | 2023-01-25 17:29 | PC.NURSE ---
Using clean technique, I removed the old PICC line dressing. Using sterile technique the device was pulled back 4 cm and resecured with stat lock, and dressed with biopatch and tegaderm. Used 1 central line dressing tray for alcohol swabsticks, CHG prep, 2x2s, and tegaderm. Report to primary nurse.
[2023-01-25] MEDS: insulin lispro 100 unit/1 mL SUBCUT (17:48)
[2023-01-25] MEDS: morphine IR 15 mg Tablet PO (17:48)
[2023-01-25 17:58] LABS: Troponin 5 6HR 13.76 ng/L (0-10)
[2023-01-25 18:00] LABS: Urine Random Sodium 14 mmol/L
[2023-01-25 18:00] LABS: Troponin 5 6HR Delta -1.24 ng/L (0-12)
[2023-01-25 18:08] LABS: Blood Urea Nitrogen 21 mg/dL (6-20); Calcium 7.9 mg/dL (8.5-10.5); Carbon Dioxide 27 mmol/L (22-29); Chloride 85 mmol/L (98-107); Glomerular Filtration Rate 59.2 mL/min (90-130); Glucose 365 mg/dL (65-115); Osmolality Calculated 270 mOsm/kg (285-295); Sodium 121 mmol/L (136-145); Uric Acid 6.3 mg/dL (2.4-5.7)
[2023-01-25 18:10] LABS: Anion Gap 13.6 (5-19); Potassium 4.6 mmol/L (3.5-5.1)
[2023-01-25] MEDS: sodium chloride 0.9% 1,000 ML 75 ML IV (19:53)
[2023-01-25] MEDS: benzonatate 100 mg Capsule 200 MG PO (20:36)
[2023-01-25] MEDS: HYDROcodone-acetaminophen 5-325 mg Tablet 1 TAB PO (20:36)
[2023-01-25 21:59] LABS: Cortisol Random 11.01 ug/dL (2.47-19.5)
[2023-01-25 22:46] LABS: Anion Gap 14.9 (5-19); Blood Urea Nitrogen 19 mg/dL (6-20); Carbon Dioxide 25 mmol/L (22-29); Chloride 90 mmol/L (98-107); Glomerular Filtration Rate 76.6 mL/min (90-130); Glucose 345 mg/dL (65-115); Osmolality Calculated 278 mOsm/kg (285-295); Potassium 3.9 mmol/L (3.5-5.1); Sodium 126 mmol/L (136-145)
[2023-01-25] MEDS: acetaminophen 500 mg Tablet PO (23:17)
[2023-01-26] VITALS (100 sets, daily range): BP systolic 73–145; BP diastolic 46–93; PULSE 89–120; RESP 16–38; TEMP 37.2–39.5; O2SAT 85–97; BMI 41.4
[2023-01-26 02:34] LABS: Anion Gap 11.3 (5-19); Blood Urea Nitrogen 18 mg/dL (6-20); Calcium 6.8 mg/dL (8.5-10.5); Carbon Dioxide 24 mmol/L (22-29); Chloride 97 mmol/L (98-107); Glomerular Filtration Rate 76.6 mL/min (90-130); Glucose 310 mg/dL (65-115); Osmolality Calculated 282 mOsm/kg (285-295); Potassium 3.3 mmol/L (3.5-5.1); Sodium 129 mmol/L (136-145)
--- NOTE | 2023-01-26 04:00 | PC.NURSE ---
Lovenox No VTE prophylaxis order active. Dr. Donald contacted for verification; order received for 40 mg lovenox SubQ Q24HR. See MAR for details.
[2023-01-26] MEDS: enoxaparin 40 mg/0.4 mL Syringe SUBCUT (04:25)
[2023-01-26 04:28] LABS: ABG PCO2 41.1 mmHg (35-45); Arterial Blood Gas Hematocrit 38.8 % (37-47); Base Excess ABG 0.8 mmol/L (-2.0-2.0); Blood Gas Sample Site Brachial, left; Blood Gas Sample Type Arterial; HCO3 ABG 25.7 mmol/L (22-26); Oxygen Device OXY MASK; PO2 ABG 64.3 mmHg (80.0-100.0)
[2023-01-26] MEDS: morphine IR 15 mg Tablet PO ×2 (04:35→14:44)
[2023-01-26] MEDS: acetaminophen 500 mg Tablet PO ×3 (04:36→17:20)
[2023-01-26] MEDS: benzonatate 100 mg Capsule 200 MG PO ×3 (04:42→20:50)
[2023-01-26] MEDS: levoFLOXacin 750 mg Tablet PO (06:01)
[2023-01-26] MEDS: HYDROcodone-acetaminophen 5-325 mg Tablet 1 TAB PO ×4 (06:05→22:05)
[2023-01-26 06:10] LABS: Basophils % 0.2 %; Hematocrit 31.6 % (36-47); Lymphocytes # 0.7 10^3/uL (0.8-4.8); Lymphocytes % 8.7 %; Mean Corpuscular HGB Conc 32.6 g/dL (30-55); Mean Corpuscular Hemoglobin 28.5 pg (27-33); Mean Corpuscular Volume 87.3 fl (85-98); Mean Platelet Volume 8.7 fL (7.4-10.4); Monocytes # 0.4 10^3/uL (0.2-0.9); Monocytes % 4.7 %; Neutrophils # 7.18 10^3/uL (1.8-7.7); Neutrophils % 85.8 %; Nucleated Red Blood Cells % 0 %; Platelet Count 182 10^3/cmm (157-399); Red Blood Count 3.62 10^6/uL (3.85-5.65); Red Cell Distribution Width 13.3 % (12.1-15.1)
[2023-01-26 06:25] LABS: White Blood Count 8.37 10^3/uL (3.29-11.43)
[2023-01-26 06:34] LABS: Anion Gap 13.5 (5-19); Blood Urea Nitrogen 18 mg/dL (6-20); C Reactive Protein 203.7 mg/L (0.0-4.9); Calcium 6.8 mg/dL (8.5-10.5); Carbon Dioxide 22 mmol/L (22-29); Chloride 97 mmol/L (98-107); Glomerular Filtration Rate 66.8 mL/min (90-130); Glucose 306 mg/dL (65-115); Magnesium 1.3 mg/dL (1.7-2.3); Osmolality Calculated 281 mOsm/kg (285-295); Phosphorus 2.4 mg/dL (2.5-4.5); Potassium 3.5 mmol/L (3.5-5.1); Sodium 129 mmol/L (136-145)
[2023-01-26] MEDS: dexamethasone 4 mg Tablet 6 MG PO (07:51)
[2023-01-26] MEDS: FUROsemide 10 mg/mL SDV 4mL 40 MG IVP (07:51)
[2023-01-26] MEDS: ipratropium-albuterol 3 mL Neb INHALATION ×2 (08:01→14:50)
[2023-01-26] MEDS: insulin lispro 100 unit/1 mL SUBCUT ×3 (08:04→17:18)
[2023-01-26 08:06] LABS: Glucose Point of Care 364 mg/dL (70-110)
--- NOTE | 2023-01-26 10:06 | PC.NURSE ---
Upon patient rounding this am, patient noted to be resting in bed and in pain- unable to receive more pain medications as this time, see mar. Patient has fever of 101.3 this am, this nurse placed ice packs under Ms. Perez's arms, patient tolerated well. This nurse and respiratory therapist, Carissa assisted patient to chair- during transfer to chair we discussed the importance of physical activity and prone positioning during the hospital stay. Patient verbalized understanding. Linens changed at this time. Patient is very weak but tolerated the transfer well. Patient refused breakfast this am, pt states, I am just not hungry, I just feel miserable. Later this am around 0900 O2 started destating to 86%-87% on 6L oxymask, RT placed patient on HHF at this time, see documentation. This nurse verbally rounded with attending physician and discussed patient plan of care- orders to hold lasix at this time, discontinue fluids, oxygen management, and encourage patient movement. Around 1000 patient became hypotensive, see vital sign documented. Verbal orders given to administer continuos levophed drip, see mar. Patient noted to be A&Ox4 at this time, but very drowsy.
[2023-01-26 11:30] LABS: Glucose Point of Care 345 mg/dL (70-110)
[2023-01-26 12:01] LABS: Anion Gap 14.1 (5-19); Blood Urea Nitrogen 20 mg/dL (6-20); Calcium 7.8 mg/dL (8.5-10.5); Carbon Dioxide 25 mmol/L (22-29); Chloride 91 mmol/L (98-107); Glucose 337 mg/dL (65-115); Osmolality Calculated 278 mOsm/kg (285-295); Potassium 4.1 mmol/L (3.5-5.1); Sodium 126 mmol/L (136-145)
[2023-01-26] MEDS: remdesivir 100 MG in sodium chloride 0.9% (100 ml) 100 ML IV (14:43)
[2023-01-26 15:05] LABS: Anion Gap 15.1 (5-19); Blood Urea Nitrogen 19 mg/dL (6-20); Calcium 7.8 mg/dL (8.5-10.5); Carbon Dioxide 25 mmol/L (22-29); Chloride 91 mmol/L (98-107); Glomerular Filtration Rate 59.2 mL/min (90-130); Glucose 310 mg/dL (65-115); Osmolality Calculated 278 mOsm/kg (285-295); Potassium 4.1 mmol/L (3.5-5.1); Sodium 127 mmol/L (136-145)
--- NOTE | 2023-01-26 16:27 | P.PN_ITS ---
Subjective Subjective: Reports still having a lot of shortness of breath, and back pain. She is sitting up in the chair. Nursing reports that her sats have remained in the upper 80s while on 6 L of oxygen. Vitals/I&O/Wt Last Vital Signs Temp 101.7 F H 01/26/23 11:37 Pulse 118 H 01/26/23 15:46 Resp 24 H 01/26/23 15:46 BP 126/60 01/26/23 15:00 Pulse Ox 92 01/26/23 15:46 O2 Del Method Heated High Flow 01/26/23 15:00 O2 Flow Rate 40 01/26/23 15:46 FiO2 60 01/26/23 15:46 01/26/23 01/26/23 01/26/23 06:59 14:59 22:59 Intake Total 1100 / 2300 1012.319 / 1012.319 100 / 1112.319 Output Total 875 / 2175 Balance 225 / 125 1012.319 / 1012.319 100 / 1112.319 Weight last 48 hrs Weight 241 lb 9.6 oz Weight 230 lb Physical Exam Narrative: General: Ill-appearing, moderate respiratory distress. HEENT: Normocephalic, Atraumatic. External ears normal. Nasal passages patent without drainage. MMM. Heart: RRR. Resp: Coarse lung sounds and mild Rales present throughout the lung haney. Abd: Soft, non-tender. Non-distended. Extremities: No edema. Skin: No rash or lesions on exposed areas. Urinary Catheter Management: Lizama: Cath Placed During This Visit: yes Reason for Continuing Indwelling Catheter: Accurate Measurement of Urinary Output in Critically Ill Patients Urinary Catheter Date of Insertion: 01/25/23 Urinary Catheter Time of Insertion: 17:15 Data 01/26/23 06:00 01/26/23 14:35 Micro: Microbiology 01/25/23 10:45 Blood Culture - Preliminary Blood NEGATIVE TO DATE 01/25/23 10:17 Blood Culture - Preliminary Blood NEGATIVE TO DATE A&P Assessment and plan (1) COVID-19: (2) Acute hyponatremia: (3) Acute respiratory failure with hypoxia: (4) OCD (obsessive compulsive disorder): (5) Insomnia: (6) Morbid obesity: (7) Diabetes 1.5, managed as type 1: (8) Nicotine dependence, cigarettes, with unspecified nicotine-induced disorders: (9) Hypothyroid: Qualifiers: Hypothyroidism type: acquired Qualified Code(s): E03.9 - Hypothyroidism, unspecified (10) Stage 3 chronic kidney disease due to diabetes mellitus: (11) Diabetic neuropathy: (12) Chronic post-traumatic stress disorder (PTSD): Plan 47-year-old female admitted for acute hypoxia, COVID-19, hyponatremia. Continue close ICU monitoring. Oxygen sats have remained in the upper 80s on 6 L of oxygen. She was switched to heated high flow oxygen, and her sats have improved to the lower 90s. Nephrology is consulted. Appreciate their recommendations. Hyponatremia has improved to 129. Sodium estimated at 132 when corrected for hyperglycemia. We will continue sliding scale insulin and CC diet. We will continue remdesivir and Decadron for COVID-19 treatment. Discussed with respiratory. If she remains difficult to oxygenate, we can consider prone placement. She is sitting up in the chair regularly in hopes of easing her work of breathing and improving oxygention. Continue antipyretics. Creatinine is currently at 1.0. Magnesium is 1.3. Will replace magnesium at this time. We will hold on Lasix for now. IV fluids stopped given her respiratory status and concern for volume overload. Will continue to monitor Na and may need additional fluids to replace. Continue fluid restriction. Code Status: Full IVF: None DVT PPx: Lovenox GI PPx: None ABx: Remdesivir, levofloxacin Diet: Carb consistent Discharge plan: To be determined Attestations Medical Necessity Statement*: Continue inpatient monitoring and treatment for acute hypoxia, oxygen require ment, COVID-19 treatment, hyponatremia. Coding Level of Care Code Critical Care >/= 30 minutes Critical care time (in minutes): 40 The high probability of a clinically significant, sudden or life threatening deterioration, as referenced in this documentation, required my full and direct attention, intervention and personal management. The critical care time shown is in addition to time spent performing any reported separately billable procedures and includes the following: [x] Data and vital sign review and interpretation [x ] Patient assessment, examination and intervention [x] Medication orders and management [x] Patient/Family updates as able [x] Care Coordination and Documentation. Diagnoses COVID-19 U07.1 Acute hyponatremia E87.1 Acute respiratory failure with hypoxia J96.01 OCD (obsessive compulsive disorder) F42.9 Insomnia G47.00 Morbid obesity E66.01 Diabetes 1.5, managed as type 1 E13.9 Nicotine dependence, cigarettes, with unspecified nicotine-induced disorders F17.219 Hypothyroid E03.9 Hypothyroidism type: acquired Stage 3 chronic kidney disease due to diabetes mellitus E11.22; N18.30 Diabetic neuropathy E11.40 Chronic post-traumatic stress disorder (PTSD) F43.12
[2023-01-26 17:19] LABS: Glucose Point of Care 292 mg/dL (70-110)
[2023-01-26] MEDS: magnesium sulfate premix 1 GM/100 ML PIGGYBACK IV (17:20)
--- NOTE | 2023-01-26 18:43 | P.PN_ITS ---
Subjective Subjective: pt in isolation deu to covid Medications: Reviewed: Yes Vitals/I&O/Wt Last Vital Signs Temp 98.9 F 01/26/23 17:30 Pulse 114 H 01/26/23 17:30 Resp 25 H 01/26/23 17:30 BP 107/69 01/26/23 17:30 Pulse Ox 93 01/26/23 17:30 O2 Del Method Heated High Flow 01/26/23 15:00 O2 Flow Rate 40 01/26/23 17:30 FiO2 60 01/26/23 17:30 01/26/23 01/26/23 01/26/23 06:59 14:59 22:59 Intake Total 1100 / 2300 1012.319 / 4790.191 8275.140 / 2316.459 Output Total 875 / 2175 1400 / 1400 Balance 225 / 125 1012.319 / 1012.319 -95.860 / 916.459 Weight last 48 hrs Weight 109.588 kg Weight 104.326 kg Physical Exam Narrative: awake , alert HEENT PEERLA S1 S2 RRR per report Urinary Catheter Management: Lizama: Cath Placed During This Visit: yes Reason for Continuing Indwelling Catheter: Accurate Measurement of Urinary Output in Critically Ill Patients Urinary Catheter Date of Insertion: 01/25/23 Urinary Catheter Time of Insertion: 17:15 Data 01/26/23 06:00 01/26/23 14:35 Micro: Microbiology 01/25/23 10:45 Blood Culture - Preliminary Blood NEGATIVE TO DATE 01/25/23 10:17 Blood Culture - Preliminary Blood NEGATIVE TO DATE A&P Assessment and plan (1) Acute hyponatremia: Plan 1. Hyponatremia: Patient chronically has low sodium levels in the range of low 130s and high 120s range. Likely contributed from meds including Celexa and possible polydipsia, poor solute intake. U sodium low ,Urine Osm pending , -s/p 50 cc an hour, off now , stopped IVFs , Na 129 ,monitor -Free water restriction to 1500 ml /day 2.: BARAK: Creatinine 1.2, s monitr, patient received IV contrast , monitor re nal function closely for contrast nephropathy risk 3. History of hypertension: Hold lisinopril 4. Altered mental status Patient evaluated using audiovisual cart. Time spent 40 minutes Attestations Medical Necessity Statement*: per mediicne team Coding Level of Care Code Acute Code for [facility]g Fwd Diagnoses Acute hyponatremia E87.1
[2023-01-26 19:53] LABS: Anion Gap 13.9 (5-19); Blood Urea Nitrogen 18 mg/dL (6-20); Calcium 7.7 mg/dL (8.5-10.5); Carbon Dioxide 25 mmol/L (22-29); Chloride 92 mmol/L (98-107); Glomerular Filtration Rate 66.8 mL/min (90-130); Glucose 291 mg/dL (65-115); Osmolality Calculated 277 mOsm/kg (285-295); Potassium 3.9 mmol/L (3.5-5.1); Sodium 127 mmol/L (136-145)
[2023-01-26] MEDS: CLONazepam 1 mg Tablet 2 MG PO (20:43)
--- NOTE | 2023-01-26 21:00 | PC.NURSE ---
Klonopin Patient stating she is feeling anxious and requesting her home dose of [address] Montoya contacted; order received to start 2 mg klonopin PO BID home dose. See MAR for details.
[2023-01-26 22:15] LABS: Glucose Point of Care 298 mg/dL (70-110)
[2023-01-26 22:32] LABS: Anion Gap 13.9 (5-19); Blood Urea Nitrogen 17 mg/dL (6-20); Calcium 7.8 mg/dL (8.5-10.5); Carbon Dioxide 25 mmol/L (22-29); Chloride 91 mmol/L (98-107); Glomerular Filtration Rate 89.3 mL/min (90-130); Glucose 282 mg/dL (65-115); Osmolality Calculated 274 mOsm/kg (285-295); Potassium 3.9 mmol/L (3.5-5.1); Sodium 126 mmol/L (136-145)
[2023-01-27] VITALS (50 sets, daily range): BP systolic 84–172; BP diastolic 53–108; PULSE 82–199; RESP 11–43; TEMP 36.4–37.1; O2SAT 89–98; BMI 40.6
[2023-01-27] MEDS: morphine IR 15 mg Tablet PO ×3 (00:02→16:59)
[2023-01-27] MEDS: HYDROcodone-acetaminophen 5-325 mg Tablet 1 TAB PO ×3 (02:39→20:02)
[2023-01-27 02:49] LABS: Anion Gap 12.2 (5-19); Blood Urea Nitrogen 15 mg/dL (6-20); Carbon Dioxide 28 mmol/L (22-29); Chloride 93 mmol/L (98-107); Glomerular Filtration Rate 76.6 mL/min (90-130); Glucose 324 mg/dL (65-115); Osmolality Calculated 281 mOsm/kg (285-295); Potassium 4.2 mmol/L (3.5-5.1); Sodium 129 mmol/L (136-145)
[2023-01-27] MEDS: enoxaparin 40 mg/0.4 mL Syringe SUBCUT (05:07)
[2023-01-27] MEDS: levoFLOXacin 750 mg Tablet PO (05:07)
[2023-01-27] MEDS: benzonatate 100 mg Capsule 200 MG PO ×3 (05:12→23:00)
[2023-01-27 06:47] LABS: Anion Gap 13.4 (5-19); Blood Urea Nitrogen 15 mg/dL (6-20); Calcium 8.2 mg/dL (8.5-10.5); Carbon Dioxide 28 mmol/L (22-29); Chloride 94 mmol/L (98-107); Glomerular Filtration Rate 89.3 mL/min (90-130); Glucose 329 mg/dL (65-115); Osmolality Calculated 286 mOsm/kg (285-295); Potassium 4.4 mmol/L (3.5-5.1); Sodium 131 mmol/L (136-145)
[2023-01-27] MEDS: dexamethasone 4 mg Tablet 6 MG PO (07:54)
[2023-01-27] MEDS: CLONazepam 1 mg Tablet 2 MG PO ×2 (07:54→16:59)
[2023-01-27 08:21] LABS: Glucose Point of Care 334 mg/dL (70-110)
[2023-01-27] MEDS: insulin lispro 100 unit/1 mL SUBCUT ×3 (08:22→17:09)
[2023-01-27] MEDS: ipratropium-albuterol 3 mL Neb INHALATION ×2 (08:31→13:36)
--- NOTE | 2023-01-27 08:38 | XR_ITS ---
WS: [id number] XR chest 1V portable [id number] REASON FOR EXAM: pna FINDINGS: Right arm PICC line remains in proper position. Central venous congestion. Cardiomegaly. Ill-defined reticular and groundglass opacities in both lower lung haney which appear to have progre ssed compared to the previous examination of 01/25/2023. No other interval change or new finding. IMPRESSION: Progression of chest abnormality as above. Findings are compatible with pneumonitis however congestiv e heart failure is also a consideration from the findings.
--- NOTE | 2023-01-27 10:32 | PM.PN ---
Subjective Subjective: This morning patient is on 40 L 60% heated high flow Complaining of headache Nasal congestion I have asked RT to see if we can change her settings, there is component of congestion and consolidation of humidified air because of fan in the room Hyperglycemia noted Febrile episode yesterday, patient is tachycardic Sitting in a recliner Vitals/I&O/Wt Last Vital Signs Temp 98.3 F 01/27/23 04:45 Pulse 102 H 01/27/23 10:00 Resp 17 01/27/23 10:00 BP 122/74 01/27/23 10:00 Pulse Ox 93 01/27/23 10:00 O2 Del Method Heated High Flow 01/27/23 08:30 O2 Flow Rate 40 01/27/23 08:30 FiO2 60 01/27/23 08:30 01/26/23 01/27/23 01/27/23 22:59 06:59 14:59 Intake Total 1304.140 / 2316.459 360 / 2676.459 Output Total 1400 / 1400 1775 / 3175 Balance -95.860 / 916.459 -1415 / -498.541 Weight last 48 hrs Weight 107.32 kg Weight 109.588 kg Physical Exam Narrative: GCS 15 Crackles noted on lung auscultation S1, S2 sinus tachycardia Abdomen soft Patient is awake and alert Nasal congestion Complaining of headache Currently on heated high flow 60% 40 L Urinary Catheter Management: Lizama: Cath Placed During This Visit: yes Reason for Continuing Indwelling Catheter: Accurate Measurement of Urinary Output in Critically Ill Patients Urinary Catheter Date of Insertion: 01/25/23 Urinary Catheter Time of Insertion: 17:15 Data 01/26/23 06:00 01/27/23 06:12 Micro: Microbiology 01/25/23 10:45 Blood Culture - Preliminary Blood NEGATIVE TO DATE 01/25/23 10:17 Blood Culture - Preliminary Blood NEGATIVE TO DATE A&P Assessment and plan (1) COVID-19: (2) Acute respiratory failure with hypoxia: (3) OCD (obsessive compulsive disorder): (4) Morbid obesity: (5) Nicotine dependence, cigarettes, with unspecified nicotine-induced disorders: (6) Hypothyroid: Qualifiers: Hypothyroidism type: acquired Qualified Code(s): E03.9 - Hypothyroidism, unspecified (7) Stage 3 chronic kidney disease due to diabetes mellitus: (8) Diabetic neuropathy: (9) Uncontrolled type 2 diabetes mellitus: (10) Fever: Plan Worsening hypoxia Currently on 40 L FiO2 60% Heated high flow Patient is also showing signs of fever Requested MRSA nares PCR Added vancomycin change levofloxacin to cefepime Chest for showing vascular congestion we will request echo and give her IV Lasix 60 mg Patient is stating that she has been updating her family Fever likely related to COVID-19 Tylenol Currently on empirical antibiotic No active diarrhea No signs of meningitis Hyponatremia: Improved, Appreciate nephro recommendations Hyperglycemia related to diabetes and steroid use I would like to increase the dose of Lantus and sliding scale to high intensity Patient is full code Consistent carb diet DVT prophylaxis Lovenox title department manager & ICU nurse updated Attestations Medical Necessity Statement*: Continue medical management Diagnoses COVID-19 U07.1 Acute respiratory failure with hypoxia J96.01 OCD (obsessive compulsive disorder) F42.9 Morbid obesity E66.01 Nicotine dependence, cigarettes, with unspecified nicotine-induced disorders F17.219 Hypothyroid E03.9 Hypothyroidism type: acquired Stage 3 chronic kidney disease due to diabetes mellitus E11.22; N18.30 Diabetic neuropathy E11.40 Uncontrolled type 2 diabetes mellitus E11.65 Fever R50.9
--- NOTE | 2023-01-27 10:35 | PC.PHAR ---
[id number] Vancomycin: Standard dosing requested (trough 10-15) dosing at 1500 q12h should result in level in range. Draw before 4th dose 01/30 0400
--- NOTE | 2023-01-27 10:39 | USCV_ITS ---
Андрейkiki Rachel Age: 47 Gender: F : 1975 Exam Date: 01/27/2023 13:21 Ordering Phys: Pedro Mackay MD Technologist: Mainor Anguiano Exam Location: [facility] [place] Indication: ef only BP: 124 / 76 HR: Rhythm: Sinus Technical Quality: Adequate MEASUREMENTS (Male / Female) Normal Values 2D ECHO LV Diastolic Diameter PLAX 3.8 cm 4.2 - 5.9 / 3.9 - 5.3 cm LV Systolic Diameter PLAX 2.5 cm IVS Diastolic Thickness 1.3 cm 0.6 - 1.0 / 0.6 - 0.9 cm IVS Systolic Thickness 1.8 cm LVPW Diastolic Thickness 1.1 cm 0.6 - 1.0 / 0.6 - 0.9 cm LVPW Systolic Thickness 1.7 cm LV Ejection Fraction 2D Teich 63.7 % LV Ejection Fraction MOD 2C 71.2 % LV Ejection Fraction 2C AL 70.6 % FINDINGS Left Ventricle Right Ventricle Right Atrium Left Atrium Mitral Valve Aortic Valve Tricuspid Valve Pulmonic Valve Pericardium Aorta IVC CONCLUSIONS Limited echocardiogram to assess LV systolic function. LV systolic function is normal with EF of 60 to 65%. No regional wall abnormalities are seen. Compared to prior echocardiogram from 2019, no significant changes in LV systolic function is seen Livan Gordon MD (Electronically Signed) Final Date: 27 January 2023 18:41 S
[2023-01-27 10:43] LABS: Anion Gap 11.3 (5-19); Blood Urea Nitrogen 16 mg/dL (6-20); Calcium 8.4 mg/dL (8.5-10.5); Carbon Dioxide 29 mmol/L (22-29); Chloride 92 mmol/L (98-107); Glomerular Filtration Rate 89.3 mL/min (90-130); Glucose 330 mg/dL (65-115); Osmolality Calculated 280 mOsm/kg (285-295); Potassium 4.3 mmol/L (3.5-5.1); Sodium 128 mmol/L (136-145)
--- NOTE | 2023-01-27 10:59 | PM.PN ---
Subjective Subjective: no new complaints Medications: Reviewed: Yes Vitals/I&O/Wt Last Vital Signs Temp 98.3 F 01/27/23 04:45 Pulse 102 H 01/27/23 10:00 Resp 17 01/27/23 10:00 BP 122/74 01/27/23 10:00 Pulse Ox 93 01/27/23 10:00 O2 Del Method Heated High Flow 01/27/23 08:30 O2 Flow Rate 40 01/27/23 08:30 FiO2 60 01/27/23 08:30 01/26/23 01/27/23 01/27/23 22:59 06:59 14:59 Intake Total 1304.140 / 2316.459 360 / 2676.459 Output Total 1400 / 1400 1775 / 3175 Balance -95.860 / 916.459 -1415 / -498.541 Weight last 48 hrs Weight 107.32 kg Weight 109.588 kg Physical Exam Narrative: awake , alert HEENT PEERLA S1 S2 RRR per report Urinary Catheter Management: Lizama: Cath Placed During This Visit: yes Reason for Continuing Indwelling Catheter: Accurate Measurement of Urinary Output in Critically Ill Patients Urinary Catheter Date of Insertion: 01/25/23 Urinary Catheter Time of Insertion: 17:15 Data 01/28/23 05:25 01/27/23 21:59 Micro: Microbiology 01/25/23 10:45 Blood Culture - Preliminary Blood NEGATIVE TO DATE 01/25/23 10:17 Blood Culture - Preliminary Blood NEGATIVE TO DATE A&P Assessment and plan (1) Acute hyponatremia: Plan 1. Hyponatremia: Patient chronically has low sodium levels in the range of low 130s and high 120s range. Likely contributed from meds including Celexa and possible polydipsia, poor solute intake. U sodium low ,Urine Osm pending , -s/p 50 cc an hour, off now , stopped IVFs , Na 129 ,monitor -Free water restriction to 1500 ml /day 2.: BARAK: Creatinine 1.2, monitor, patient received IV contrast , monitor renal function closely for contrast nephropathy risk 3. History of hypertension: Holding lisinopril 4. Altered mental status 5. Resp failure : sec to COVID , Patient evaluated using audiovisual cart. Time spent 40 minutes Attestations Medical Necessity Statement*: [facility] Coding Level of Care Code Acute Code for Chg Fwd Diagnoses Acute hyponatremia E87.1
[2023-01-27] MEDS: vancomycin 1,500 MG/300 ML PIGGYBACK 200 MG IV ×2 (11:22→23:00)
[2023-01-27] MEDS: potassium chloride ER 20 mEq Tablet 40 MEQ PO (11:22)
[2023-01-27] MEDS: FUROsemide 10 mg/mL SDV 10mL 60 MG IVP (11:23)
[2023-01-27 13:20] LABS: Glucose Point of Care 339 mg/dL (70-110)
[2023-01-27] MEDS: remdesivir 100 MG in sodium chloride 0.9% (100 ml) 100 ML IV (15:07)
[2023-01-27 15:18] LABS: Anion Gap 11.9 (5-19); Blood Urea Nitrogen 19 mg/dL (6-20); Calcium 8.6 mg/dL (8.5-10.5); Carbon Dioxide 31 mmol/L (22-29); Chloride 90 mmol/L (98-107); Glomerular Filtration Rate 76.6 mL/min (90-130); Glucose 400 mg/dL (65-115); Osmolality Calculated 285 mOsm/kg (285-295); Potassium 4.9 mmol/L (3.5-5.1); Sodium 128 mmol/L (136-145)
[2023-01-27 17:09] LABS: Glucose Point of Care 364 mg/dL (70-110)
[2023-01-27 18:29] LABS: Anion Gap 10.6 (5-19); Blood Urea Nitrogen 21 mg/dL (6-20); Calcium 8.5 mg/dL (8.5-10.5); Carbon Dioxide 32 mmol/L (22-29); Chloride 93 mmol/L (98-107); Glomerular Filtration Rate 89.3 mL/min (90-130); Glucose 344 mg/dL (65-115); Osmolality Calculated 289 mOsm/kg (285-295); Potassium 4.6 mmol/L (3.5-5.1); Sodium 131 mmol/L (136-145)
[2023-01-27 20:10] LABS: Glucose Point of Care 342 mg/dL (70-110)
[2023-01-27] MEDS: insulin glargine 100 units/1 mL 20 UNIT SUBCUT (20:53)
[2023-01-27 22:40] LABS: Anion Gap 10.7 (5-19); Blood Urea Nitrogen 23 mg/dL (6-20); Calcium 8.4 mg/dL (8.5-10.5); Carbon Dioxide 32 mmol/L (22-29); Chloride 92 mmol/L (98-107); Glomerular Filtration Rate 76.6 mL/min (90-130); Glucose 346 mg/dL (65-115); Osmolality Calculated 287 mOsm/kg (285-295); Potassium 4.7 mmol/L (3.5-5.1); Sodium 130 mmol/L (136-145)
[2023-01-28] VITALS (26 sets, daily range): BP systolic 100–164; BP diastolic 57–94; PULSE 68–85; RESP 16–20; TEMP 36.1–36.5; O2SAT 90–96; BMI 40.2
[2023-01-28] MEDS: HYDROcodone-acetaminophen 5-325 mg Tablet 1 TAB PO ×3 (00:35→18:21)
[2023-01-28 04:32] LABS: ABG PH Result 7.32 (7.35-7.45); Arterial Blood Gas Hematocrit 34.7 % (37-47); Base Excess ABG 4.8 mmol/L (-2.0-2.0); Blood Gas Allen Test Pos; Blood Gas Sample Site Radial, left; Blood Gas Sample Type Arterial; HCO3 ABG 32.3 mmol/L (22-26); Oxygen Device NC; PO2 ABG 67.6 mmHg (80.0-100.0)
[2023-01-28 04:34] LABS: ABG PCO2 62.3 mmHg (35-45)
[2023-01-28] MEDS: enoxaparin 40 mg/0.4 mL Syringe SUBCUT (05:14)
[2023-01-28] MEDS: levoFLOXacin 750 mg Tablet PO (05:14)
[2023-01-28] MEDS: benzonatate 100 mg Capsule 200 MG PO ×2 (05:15→15:05)
[2023-01-28 05:57] LABS: Basophils # 0.1 10^3/uL (0.0-0.1); Basophils % 0.6 %; Hematocrit 35.8 % (36-47); Lymphocytes # 1.2 10^3/uL (0.8-4.8); Lymphocytes % 11.3 %; Mean Corpuscular HGB Conc 31.3 g/dL (30-55); Mean Corpuscular Volume 89.5 fl (85-98); Mean Platelet Volume 9.5 fL (7.4-10.4); Monocytes # 0.3 10^3/uL (0.2-0.9); Monocytes % 2.7 %; Neutrophils # 8.99 10^3/uL (1.8-7.7); Nucleated Red Blood Cells % 0 %; Platelet Count 248 10^3/cmm (157-399); Red Cell Distribution Width 13.4 % (12.1-15.1); White Blood Count 10.58 10^3/uL (3.29-11.43)
[2023-01-28 06:16] LABS: Slide Review Slide Review Perform
[2023-01-28] MEDS: CLONazepam 1 mg Tablet 2 MG PO ×2 (08:11→17:44)
[2023-01-28] MEDS: dexamethasone 4 mg Tablet 6 MG PO (08:11)
[2023-01-28] MEDS: insulin lispro 100 unit/1 mL SUBCUT ×3 (08:30→18:22)
[2023-01-28 09:47] LABS: Glucose Point of Care 350 mg/dL (70-110)
--- NOTE | 2023-01-28 10:03 | P.PN_ITS ---
Subjective Subjective: events noted Medications: Reviewed: Yes Vitals/I&O/Wt Last Vital Signs Temp 97.7 F 01/28/23 06:00 Pulse 83 01/28/23 09:00 Resp 16 01/28/23 07:52 BP 115/65 01/28/23 09:00 Pulse Ox 90 01/28/23 09:00 O2 Del Method High Flow Nasal Cannula 01/28/23 07:52 O2 Flow Rate 4 01/28/23 07:52 FiO2 40 01/27/23 13:40 01/27/23 01/28/23 01/28/23 22:59 06:59 14:59 Intake Total 850 / 1650 550 / 2200 Output Total 1500 / 1500 1450 / 2950 Balance -650 / 150 -900 / -750 Weight last 48 hrs Weight 106.311 kg Weight 107.32 kg Physical Exam Narrative: Deferred Urinary Catheter Management: Lizama: Cath Placed During This Visit: yes Reason for Continuing Indwelling Catheter: Accurate Measurement of Urinary Output in Critically Ill Patients Urinary Catheter Date of Insertion: 01/25/23 Urinary Catheter Time of Insertion: 17:15 Data 01/29/23 06:13 01/29/23 06:13 A&P Assessment and plan (1) Acute hyponatremia: Plan 1. Hyponatremia: Patient chronically has low sodium levels in the range of low 130s and high 120s range. Likely contributed from meds including Celexa and po ssible polydipsia, poor solute intake. U sodium low -s/p 50 cc an hour, off now , stopped IVFs , Na 130 ,monitor -Free water restriction to 1500 ml /day 2.: BARAK: Creatinine 1.2, monitor, patient received IV contrast , 3. History of hypertension: Holding lisinopril 4. Altered mental status 5. Resp failure : sec to COVID , Lasix PRN Patient evaluated using audiovisual cart. Time spent 20 minutes Attestations Medical Necessity Statement*: PER MEDICINE TEAM Coding Level of Care Code Acute Code for [facility] Fwd Diagnoses Acute hyponatremia E87.1
[2023-01-28] MEDS: vancomycin 1,500 MG/300 ML PIGGYBACK 200 MG IV ×2 (11:30→23:52)
[2023-01-28 11:51] LABS: Glucose Point of Care 390 mg/dL (70-110)
--- NOTE | 2023-01-28 11:54 | P.PN_ITS ---
Subjective Subjective: She is on 4 L nasal cannula Endorsing eating okay Having a bowel movement Patient endorsing feeling better today No fever in last 24 hours Continue IV antibiotics She can be transferred out of ICU We can remove Lizama catheter as well Vitals/I&O/Wt Last Vital Signs Temp 97.0 F L 01/28/23 08:00 Pulse 79 01/28/23 11:00 Resp 16 01/28/23 07:52 BP 107/70 01/28/23 11:00 Pulse Ox 95 01/28/23 11:00 O2 Del Method High Flow Nasal Cannula 01/28/23 07:52 O2 Flow Rate 4 01/28/23 07:52 FiO2 40 01/27/23 13:40 01/27/23 01/28/23 01/28/23 22:59 06:59 14:59 Intake Total 850 / 1650 550 / 2200 120 / 120 Output Total 1500 / 1500 1450 / 2950 Balance -650 / 150 -900 / -750 120 / 120 Weight last 48 hrs Weight 106.311 kg Weight 107.32 kg Physical Exam Narrative: No active crackles or rhonchi Currently on 4 L Pleasant and cooperative Nasal congestion improved Lower extremity no edema Abdomen soft Pleasant and cooperative GCS 15 Urinary Catheter Management: Lizama: Cath Placed During This Visit: yes Reason for Continuing Indwelling Catheter: Accurate Measurement of Urinary Output in Critically Ill Patients Urinary Catheter Date of Insertion: 01/25/23 Urinary Catheter Time of Insertion: 17:15 Data 01/28/23 05:25 01/27/23 21:59 A&P Assessment and plan (1) Fever: (2) COVID-19: (3) Acute hyponatremia: (4) Acute respiratory failure with hypoxia: (5) OCD (obsessive compulsive disorder): (6) Insomnia: (7) Morbid obesity: (8) Generalized anxiety disorder: (9) Diabetes mellitus: Plan COVID-19: Oxygen requirement has improved today currently on 4 L PCO2 worsened patient took sedatives and opioids overnight however she is not altered no signs of confusion Hyponatremia: Improved Appreciate nephro recommendations We can remove Lizama catheter Transfer out of ICU to [facility] Plan for discharge in next 2 days if oxygen requirement stays below 5 L Fever likely related to COVID-19 she is empirically covered with broad-spectrum antibiotics for now CTA chest did not show PE, urine culture positive for E. coli Repeat cultures negative We will discontinue vancomycin by tomorrow if she remains afebrile Attestations Medical Necessity Statement*: Likely will be discharged in next 48 hours Diagnoses Fever R50.9 COVID-19 U07.1 Acute hyponatremia E87.1 Acute respiratory failure with hypoxia J96.01 OCD (obsessive compulsive disorder) F42.9 Insomnia G47.00 Morbid obesity E66.01 Generalized anxiety disorder F41.1 Diabetes mellitus E11.9
--- NOTE | 2023-01-28 12:25 | PC.SOCIAL ---
Pg 2 IMM Explained to pt Pg 2 IMM. No questions voiced. Provided pt a copy. Initialed, dated, & timed a copy & placed in chart.
[2023-01-28] MEDS: remdesivir 100 MG in sodium chloride 0.9% (100 ml) 100 ML IV (15:02)
[2023-01-28 17:05] LABS: Osmolality Urine 290 mOsm/kg (50-1200)
[2023-01-28 17:52] LABS: Glucose Point of Care 261 mg/dL (70-110)
[2023-01-28] MEDS: HYDROcodone-acetaminophen 10-325 mg Tablet 1 TAB PO (20:48)
[2023-01-28] MEDS: metoprolol succinate ER (24 HR) 25 mg Tablet PO (20:49)
[2023-01-28 22:27] LABS: Glucose Point of Care 279 mg/dL (70-110)
[2023-01-28] MEDS: insulin glargine 100 units/1 mL 50 UNIT SUBCUT (22:44)
[2023-01-28 23:10] LABS: Vancomycin Trough 13.5 ug/mL (10-15)
[2023-01-29] VITALS (12 sets, daily range): BP systolic 140–156; BP diastolic 78–86; PULSE 65–82; RESP 16–18; TEMP 36.5–36.6; O2SAT 83–97
[2023-01-29] MEDS: enoxaparin 40 mg/0.4 mL Syringe SUBCUT (05:01)
[2023-01-29] MEDS: HYDROcodone-acetaminophen 10-325 mg Tablet 1 TAB PO ×3 (05:01→19:45)
[2023-01-29] MEDS: levothyroxine 100 mcg Tablet PO (05:01)
[2023-01-29] MEDS: levoFLOXacin 750 mg Tablet PO (05:01)
[2023-01-29 05:32] LABS: ABG PCO2 49.1 mmHg (35-45); Arterial Blood Gas Hematocrit 35.2 % (37-47); Base Excess ABG 4.9 mmol/L (-2.0-2.0); Blood Gas Operator Identificat JB; Blood Gas Sample Site Brachial, right; Blood Gas Sample Type Arterial; HCO3 ABG 30.6 mmol/L (22-26); Oxygen Device NC; PO2 ABG 68.6 mmHg (80.0-100.0)
[2023-01-29 06:21] LABS: Basophils % 0.2 %; Hematocrit 35.6 % (36-47); Lymphocytes # 1.2 10^3/uL (0.8-4.8); Lymphocytes % 12.2 %; Mean Corpuscular HGB Conc 31.5 g/dL (30-55); Mean Corpuscular Hemoglobin 27.7 pg (27-33); Mean Corpuscular Volume 88.1 fl (85-98); Mean Platelet Volume 9.3 fL (7.4-10.4); Monocytes # 0.4 10^3/uL (0.2-0.9); Monocytes % 4.1 %; Neutrophils # 8.34 10^3/uL (1.8-7.7); Neutrophils % 82.3 %; Nucleated Red Blood Cells % 0 %; Platelet Count 312 10^3/cmm (157-399); Red Blood Count 4.04 10^6/uL (3.85-5.65); Red Cell Distribution Width 13.4 % (12.1-15.1); White Blood Count 10.14 10^3/uL (3.29-11.43)
[2023-01-29 06:38] LABS: Anion Gap 13.6 (5-19); Blood Urea Nitrogen 36 mg/dL (6-20); Calcium 8.8 mg/dL (8.5-10.5); Carbon Dioxide 28 mmol/L (22-29); Chloride 92 mmol/L (98-107); Glomerular Filtration Rate 76.6 mL/min (90-130); Glucose 341 mg/dL (65-115); Osmolality Calculated 290 mOsm/kg (285-295); Potassium 4.6 mmol/L (3.5-5.1); Sodium 129 mmol/L (136-145)
[2023-01-29 06:55] LABS: Glucose Point of Care 327 mg/dL (70-110)
[2023-01-29] MEDS: insulin lispro 100 unit/1 mL SUBCUT ×3 (07:51→17:20)
[2023-01-29] MEDS: dexamethasone 4 mg Tablet 6 MG PO (07:51)
[2023-01-29] MEDS: metoprolol succinate ER (24 HR) 25 mg Tablet PO ×2 (07:51→17:20)
[2023-01-29] MEDS: CLONazepam 1 mg Tablet 2 MG PO ×2 (07:52→17:20)
--- NOTE | 2023-01-29 11:21 | PM.PN ---
Subjective Subjective: no new compalnts Medications: Reviewed: Yes Vitals/I&O/Wt Last Vital Signs Temp 97.8 F 01/29/23 07:39 Pulse 79 01/29/23 07:39 Resp 16 01/29/23 07:39 BP 144/83 01/29/23 07:39 Pulse Ox 83 L 01/29/23 09:48 O2 Del Method High Flow Nasal Cannula 01/29/23 08:00 O2 Flow Rate 6 01/29/23 09:48 FiO2 40 01/27/23 13:40 01/28/23 01/29/23 01/29/23 22:59 06:59 14:59 Intake Total 240 / 720 300 / 1020 580 / 580 Output Total 600 / 600 Balance 240 / 720 -300 / 420 580 / 580 Weight last 48 hrs Weight 102.994 kg Weight 106.311 kg Physical Exam Narrative: deferred Urinary Catheter Management: Lizama: Cath Placed During This Visit: yes, but has since been removed by the nurse Reason for Continuing Indwelling Catheter: Decision to DC Catheter Urinary Catheter Date of Insertion: 01/25/23 Urinary Catheter Time of Insertion: 17:15 Date Urinary Catheter Removed: 01/29/23 Time Urinary Catheter Discontinued: 05:09 Data 01/29/23 06:13 01/29/23 06:13 A&P Assessment and plan (1) Acute hyponatremia: Plan 1. Hyponatremia: Patient chronically has low sodium levels in the range of low 130s and high 120s range. Likely contributed from meds including Celexa and possible polydipsia, poor solute intake. U sodium low -s/p 50 cc an hour, off now , stopped IVFs , Na 129 ,monitor -Free water restriction to 1500 ml /day- should conrinue @ DC 2.: BARAK: Creatinine 1.2, monitor, patient received IV contrast , 3. History of hypertension: Holding lisinopril 4. Altered mental status 5. Resp failure : sec to COVID , Lasix PRN Patient evaluated using audiovisual cart. Time spent 20 minutes Attestations Medical Necessity Statement*: per medine team Coding Level of Care Code Acute Code for [facility] Fwd Diagnoses Acute hyponatremia E87.1
--- NOTE | 2023-01-29 11:39 | PM.PN ---
Subjective Subjective: Discharge orders were put on hold because patient is requiring 6 L of oxygen and her O2 saturation is about 89% on ambulation I have asked patient to stay 1 more day I will discontinue her vancomycin, she has facial flushing For UTI I will keep her on levofloxacin Vitals/I&O/Wt Last Vital Signs Temp 97.8 F 01/29/23 07:39 Pulse 79 01/29/23 07:39 Resp 16 01/29/23 07:39 BP 144/83 01/29/23 07:39 Pulse Ox 83 L 01/29/23 09:48 O2 Del Method High Flow Nasal Cannula 01/29/23 08:00 O2 Flow Rate 6 01/29/23 09:48 FiO2 40 01/27/23 13:40 01/28/23 01/29/23 01/29/23 22:59 06:59 14:59 Intake Total 240 / 720 300 / 1020 580 / 580 Output Total 600 / 600 Balance 240 / 720 -300 / 420 580 / 580 Weight last 48 hrs Weight 102.994 kg Weight 106.311 kg Physical Exam Narrative: Awake and alert Facial flushing Nonfocal neuro exam Fatigue and lethargy 6 L on ambulation GCS 15 Nonfocal neuro exam Abdomen soft Urinary Catheter Management: Lizama: Cath Placed During This Visit: yes, but has since been removed by the nurse Reason for Continuing Indwelling Catheter: Decision to DC Catheter Urinary Catheter Date of Insertion: 01/25/23 Urinary Catheter Time of Insertion: 17:15 Date Urinary Catheter Removed: 01/29/23 Time Urinary Catheter Discontinued: 05:09 Data 01/29/23 06:13 01/29/23 06:13 A&P Assessment and plan (1) COVID-19: (2) Fever: (3) Acute hyponatremia: (4) Acute respiratory failure with hypoxia: (5) OCD (obsessive compulsive disorder): (6) UTI (urinary tract infection): (7) Diabetes mellitus: Plan Hyponatremia: Resolved Appreciate recommendation of nephro UTI: Continue levofloxacin Afebrile for last 48 COVID-19: Discontinue isolation she has been afebrile for last 48 hours Requiring 6 L on ambulation and 3 L at rest I will like to keep patient 1 more day Discontinue Decadron remdesivir Discontinue vancomycin Type 2 diabetes with hyperglycemia Discontinue Decadron related to hyperglycemia Consistent carb diet with fluid restriction insulin Risk Continue PT on daily basis Discharge tomorrow if stable Attestations Medical Necessity Statement*: Continue medical management Diagnoses COVID-19 U07.1 Fever R50.9 Acute hyponatremia E87.1 Acute respiratory failure with hypoxia J96.01 OCD (obsessive compulsive disorder) F42.9 UTI (urinary tract infection) N39.0 Diabetes mellitus E11.9
[2023-01-29 11:45] LABS: Glucose Point of Care 358 mg/dL (70-110)
--- NOTE | 2023-01-29 12:39 | PC.NURSE ---
This nurse rounded on patient at 1230 to administer hydrocodone and insulin. Pt asked if she would be able to discharge today. This nurse explained to pt that upon performing her home o2 eval with respiratory, her o2 needs doubled and Dr. Mackay did not feel comfortable discharging her home today. Pt became very upset and expressed that she was having back pain, that she needed to go home and if she didn't go home today, she would in here. I expressed the importance of patient staying another night due to her requirement of o2 and the changes that took place with that. I also encouraged patient to get out of bed, walk around the room or sit in her chair to help with back pain, however, she declined. Pt stated she was calling her dad and leaving AMA. I relayed this to Dr. Mackay. Patients sister in law, Rachel, also called up here just shortly after this and said nobody in the family would be coming to get her and she needs to stay.
[2023-01-29 13:09] LABS: Methicillin-Resist S.aureu PCR NOT DETECTED (NOT DETECTED)
--- NOTE | 2023-01-29 14:31 | PC.NURSE ---
Son, Fausto, called to get an update on pt as she continues calling family to tell them she is leaving. I expressed the recent event that took place. See previous note. Fausto is to be notified if pt tries to leave AMA.
[2023-01-29 16:46] LABS: Glucose Point of Care 152 mg/dL (70-110)
[2023-01-29] MEDS: ipratropium-albuterol 3 mL Neb INHALATION (16:57)
[2023-01-29] MEDS: acetaminophen 500 mg Tablet PO (18:09)
[2023-01-29 21:41] LABS: Glucose Point of Care 250 mg/dL (70-110)
[2023-01-29] MEDS: insulin glargine 100 units/1 mL 50 UNIT SUBCUT (21:49)
[2023-01-30] VITALS: BP 162/87; PULSE 67; RESP 15; TEMP 36.6; O2SAT 92
[2023-01-30] MEDS: HYDROcodone-acetaminophen 10-325 mg Tablet 1 TAB PO (03:08)
--- NOTE | 2023-01-30 03:14 | PC.NURSE ---
pt ambulated out of room requesting pain med, stated this is the 3rd time I've asked for it and no one would give it to me , nurse explained that pain med is scheduled for TID and next dose can be administered at 0345 and that pt was informed of this. pat states you and I both know you can give it to me an hour earlier pt proceeded to c/o about the hospital and staff being rude and calling her names, nurse asked which staff and pt identified only that one girl is wearing light blue outfit and the other a dark blue like this nurse's uniform. pt stated but no one will admit to it. pt then stated could you at least help me turn over, I can do most of it on my own, i sure wouldn't want anyone overdoing themselves , pt turned over independently, nurse asked about [address] and pt stated I don't care , nurse asked if pt able to breath without difficulty without 02 on ans pt stated I don't care , nurse told pt that she could not have an I don't care attitude in regards to wearing 02 and before nurse could finish pt stated that has not been on me all night . nurse then informed pt that that statement is not true since the last time this nurse saw pt [address] and pt continue to argue and this nurse stated i will not argue about it but are you going to wear the 02? pt continue to be confrontational but agreed to wear 02. during administration of pain med pt wanting nurse to pour med in her mouth, this nurse had pt perform the task herself. pt continue to c/o about staff and her mistreatment hen revert back to medications, pt requesting Klonipin stating that she gets that twice a day and this nurse reminded pt that that med is scheduled for 0900 and 1700.
[2023-01-30] MEDS: enoxaparin 40 mg/0.4 mL Syringe SUBCUT (04:46)
[2023-01-30] MEDS: levoFLOXacin 750 mg Tablet PO (05:39)
[2023-01-30] MEDS: levothyroxine 100 mcg Tablet PO (05:39)
[2023-01-30 06:24] LABS: Anion Gap 14.1 (5-19); Blood Urea Nitrogen 34 mg/dL (6-20); Carbon Dioxide 28 mmol/L (22-29); Chloride 96 mmol/L (98-107); Glomerular Filtration Rate 76.6 mL/min (90-130); Glucose 306 mg/dL (65-115); Osmolality Calculated 297 mOsm/kg (285-295); Potassium 4.1 mmol/L (3.5-5.1); Sodium 134 mmol/L (136-145)
[2023-01-30 06:29] LABS: Glucose Point of Care 327 mg/dL (70-110)
[2023-01-30] MEDS: insulin lispro 100 unit/1 mL SUBCUT (07:48)
[2023-01-30] MEDS: CLONazepam 1 mg Tablet 2 MG PO (07:48)
[2023-01-30] MEDS: acetaminophen 500 mg Tablet PO (07:48)
[2023-01-30] MEDS: metoprolol succinate ER (24 HR) 25 mg Tablet PO (07:49)
[2023-01-30 08:00] VITALS: BP 149/91; PULSE 73; RESP 18; O2SAT 90
[2023-01-30] MEDS: ondansetron 2 mg/ML SDV 2 mL 4 MG IVP (08:29)
--- NOTE | 2023-01-30 09:01 | P.PN_ITS ---
Subjective Subjective: on 5 L O2 Medications: Reviewed: Yes Vitals/I&O/Wt Last Vital Signs Temp 97.9 F 01/30/23 00:00 Pulse 73 01/30/23 08:00 Resp 18 01/30/23 08:00 BP 149/91 01/30/23 08:00 Pulse Ox 90 01/30/23 08:00 O2 Del Method Room Air 01/30/23 00:00 O2 Flow Rate 5 01/30/23 08:00 FiO2 40 01/27/23 13:40 01/29/23 01/30/23 01/30/23 22:59 06:59 14:59 Intake Total 120 / 1180 Balance 120 / 1180 Weight last 48 hrs Weight 107.7 kg Weight 102.994 kg Physical Exam Narrative: awake, alert No distress S2 S2 RRR per report Lungs -crackles per report Urinary Catheter Management: Lizama: Cath Placed During This Visit: yes, but has since been removed by the nurse Reason for Continuing Indwelling Catheter: Decision to DC Catheter Urinary Catheter Date of Insertion: 01/25/23 Urinary Catheter Time of Insertion: 17:15 Date Urinary Catheter Removed: 01/29/23 Time Urinary Catheter Discontinued: 05:09 Data 01/29/23 06:13 01/30/23 05:30 Micro: Microbiology 01/28/23 12:30 Gram Stain - Final Sputum - Expectorated Sputum Sputum Culture - Preliminary Strep agalactiae - (group b) A&P Assessment and plan (1) Acute hyponatremia: Plan 1. Hyponatremia: Patient chronically has low sodium levels in the range of low 130s and high 120s range. Likely contributed from meds including Celexa and possible polydipsia, poor solute intake. U sodium low -s/p 50 cc an hour, off now , stopped IVFs , Na 134 ,monitor -Free water restriction to 2000 ml /day- should conrinue @ DC 2.: BARAK: Creatinine 1.2 on presentation monitor, patient received IV contrast , 3. History of hypertension: Holding lisinopril, can restart @ dc 4. Altered mental status 5. Resp failure : sec to COVID , on 5 L O2 , Lasix PRN Patient evaluated using audiovisual cart. Time spent 20 minutes Attestations Medical Necessity Statement*: per report Coding Level of Care Code Acute Code for [facility] Fwd Diagnoses Acute hyponatremia E87.1
--- NOTE | 2023-01-30 09:42 | PM.DCS ---
Discharge Providers Date of Admission: 01/25/23 13:07 Date of Discharge: January 29, 2023 Attending Provider at Admission: Pedro Mackay MD Attending Provider at Discharge: Pedro Mackay MD Primary Care Provider: yCrus Vigil DO Diagnoses at Discharge Discharge Diagnosis (1) Fever: Status: Acute (2) COVID-19: Status: Acute (3) Acute hyponatremia: Status: Acute (4) Acute respiratory failure with hypoxia: Status: Acute (5) OCD (obsessive compulsive disorder): Status: Acute (6) Insomnia: Status: Acute (7) Morbid obesity: Status: Acute (8) Generalized anxiety disorder: Status: Chronic (9) Diabetes mellitus: Status: Acute Reason for Visit Reason for Visit: AMS Hospital Course Hospital Course 47-year female who is vaccinated for COVID-19 presented with chief complaint of shortness of breath confusion and fever she developed symptoms 10 days before her arrival in the ER she was diagnosed with COVID-19, was requiring oxygen 3 to 4 L, she was kept in ICU with remdesivir and Decadron regimen, she started spiking fever, work-up showed UTI, her fever subsided with use of antibiotics, no signs of bacteremia, no sign of sepsis, she remained awake and alert, nephro was consulted for severe hyponatremia which was corrected with use of free water restriction up to 1500 mL/day, patient has chronic hyponatremia sodium gradually improved, BARAK improved as well, patient worsened initially to heated high flow was requiring 60% 40 L however we were able to transition her oxygen down to nasal cannula 4-5 L, patient has been afebrile 72 hours before her discharge, urine culture showing E. coli, blood culture showing coagulase-negative Staphylococcus most likely contamination Repeat cultures negative to date Qualify for 6 L of oxygen at the time of discharge Patient is very upset that we are not giving her 3 tablets of hydrocodone 10/325mg I have been giving her 1 tablet 3 times a day for her back pain, I did discuss that with her son who was in agreement that there is tendency of depressed respiratory rate with such high dose. Sodium at the time of discharge is 134. Oxygen requirement fluctuating between 5 to 6 L She is afebrile Physical Exam Narrative: Awake and alert GCS 15 and fatigue lethargy Room air at rest, requires oxygen on ambulation GCS 15 Abdomen soft Pleasant cooperative Nonfocal neuro exam Urinary Catheter Management: Lizama: Cath Placed During This Visit: yes, but has since been removed by the nurse Reason for Continuing Indwelling Catheter: Decision to DC Catheter Urinary Catheter Date of Insertion: 01/25/23 Urinary Catheter Time of Insertion: 17:15 Date Urinary Catheter Removed: 01/29/23 Time Urinary Catheter Discontinued: 05:09 Discharge Data Studies Completed and Pending Completed Studies During Hospitalization Category Date Time Status CT head wo con* [id number] Stat Cat Scan 01/25/23 10:04 Completed CTA chest [CT angio chest PE protcl [id number]] Stat Cat Scan 01/25/23 11:33 Completed XR chest 1V portable [id number] Routine Exams 01/25/23 16:37 Completed XR chest 1V portable [id number] Routine Exams 01/27/23 08:38 Completed XR chest 1V portable [id number] Stat Exams 01/25/23 10:04 Completed CV. echo limited [id number] Routine Ultrasound 01/27/23 10:39 Completed Pending at discharge Category Date Time Status Blood Culture Stat Lab 01/25/23 10:45 Results MRSA [Methicillin Resistant S.aureu] Routine Lab 01/27/23 08:40 Received Sputum Culture and Gram Stain Stat Lab 01/28/23 12:30 Received Radiology Impressions Head CT 01/25/23 10:04 IMPRESSION: No acute intracranial findings. Chest CTA 01/25/23 11:33 IMPRESSION: 1. Patchy ground-glass and consolidative opacities throughout the bilateral lungs, as above. Findings likely represent multi lobar pneumonia. 2. No central pulmonary thromboembolism. Laboratory Results WBC 10.14 10^3/uL (3.29-11.43) 01/29/23 06:13 RBC 4.04 10^6/uL (3.85-5.65) 01/29/23 06:13 Hgb 11.20 g/dL (11.27-16.99) L 01/29/23 06:13 Hct 35.6 % (36-47) L 01/29/23 06:13 MCV 88.1 fl (85-98) 01/29/23 06:13 MCH 27.7 pg (27-33) 01/29/23 06:13 MCHC 31.5 g/dL (30-55) 01/29/23 06:13 RDW 13.4 % (12.1-15.1) 01/29/23 06:13 Plt Count 312 10^3/cmm (157-399) 01/29/23 06:13 MPV 9.3 fL (7.4-10.4) 01/29/23 06:13 Neut % (Auto) 82.3 % 01/29/23 06:13 Lymph % (Auto) 12.2 % 01/29/23 06:13 Edgar % (Auto) 4.1 % 01/29/23 06:13 Eos % (Auto) 0.0 % 01/29/23 06:13 Baso % (Auto) 0.2 % 01/29/23 06:13 Neut # (Auto) 8.34 10^3/uL (1.8-7.7) H 01/29/23 06:13 Lymph # (Auto) 1.2 10^3/uL (0.8-4.8) 01/29/23 06:13 Edgar # (Auto) 0.4 10^3/uL (0.2-0.9) 01/29/23 06:13 Eos # (Auto) 0.0 10^3/uL (0.0-0.8) 01/29/23 06:13 Baso # (Auto) 0.0 10^3/uL (0.0-0.1) 01/29/23 06:13 Nucleated RBC % (auto) 0 % 01/29/23 06:13 Nucleated RBCs # 0.0 /100WBC 01/29/23 06:13 APTT 25.8 SECONDS (23.9-36.7) 01/25/23 11:00 D-Dimer 1.67 ug/mLFEU (0-0.59) H 01/25/23 14:35 Specimen Type Arterial 01/29/23 05:12 Sample Site Brachial, right 01/29/23 05:12 ABG pH 7.40 (7.35-7.45) 01/29/23 05:12 ABG pCO2 49.1 mmHg (35-45) H 01/29/23 05:12 ABG pO2 68.6 mmHg (80.0-100.0) L 01/29/23 05:12 ABG HCO3 30.6 mmol/L (22-26) H 01/29/23 05:12 ABG Base Excess 4.9 mmol/L (-2.0-2.0) H 01/29/23 05:12 Joshua Test N/a 01/29/23 05:12 Hematocrit 35.2 % (37-47) L 01/29/23 05:12 O2 Delivery Device Nc 01/29/23 05:12 O2 Liters/Min 4.0 % 01/29/23 05:12 FiO2 50.0 % 01/28/23 04:20 Professional Poker Player ID [email or web address] 01/29/23 05:12 Sodium 129 mmol/L (136-145) L 01/29/23 06:13 Potassium 4.6 mmol/L (3.5-5.1) 01/29/23 06:13 Chloride 92 mmol/L (98-107) L 01/29/23 06:13 Carbon Dioxide 28 mmol/L (22-29) 01/29/23 06:13 Anion Gap 13.6 (5-19) 01/29/23 06:13 BUN 36 mg/dL (6-20) H 01/29/23 06:13 Creatinine 0.8 mg/dL (0.5-0.9) 01/29/23 06:13 GFR Calculation 76.6 mL/min (90-130) L 01/29/23 06:13 Glucose 341 mg/dL (65-115) H 01/29/23 06:13 POC Glucose 327 mg/dL (70-110) H 01/29/23 06:52 Calculated Osmolality 290 mOsm/kg (285-295) 01/29/23 06:13 Lactic Acid 2.1 mmol/L (0.5-2.2) 01/25/23 10:45 Lactic Acid (Sepsis) 1.4 mmol/L (0.5-2.2) 01/25/23 14:35 Uric Acid 6.3 mg/dL (2.4-5.7) H 01/25/23 17:11 Calcium 8.8 mg/dL (8.5-10.5) 01/29/23 06:13 Phosphorus 2.4 mg/dL (2.5-4.5) L 01/26/23 06:00 Magnesium 1.3 mg/dL (1.7-2.3) L 01/26/23 06:00 Total Bilirubin 0.7 mg/dL (0.15-1.2) 01/25/23 10:45 AST 42 U/L (0-32) H 01/25/23 10:45 ALT 31 U/L (0-33) 01/25/23 10:45 Alkaline Phosphatase 207 U/L (35-105) H 01/25/23 10:45 Troponin T Baseline 15 ng/L (0-10) H 01/25/23 10:45 Troponin T 120 Minute 13.68 ng/L (0-10) H 01/25/23 13:03 Delta Troponin T -1.32 ABS# (0-10) L 01/25/23 13:03 Troponin T Hi Sens 6Hr 13.76 ng/L (0-10) H 01/25/23 17:11 Troponin T Hi Sens 6Hr Delta -1.24 ng/L (0-12) L 01/25/23 17:11 C-Reactive Protein 203.7 mg/L (0.0-4.9) H 01/26/23 06:00 NT-Pro-B Natriuret Pep 50 pg/mL (0-125) 01/25/23 10:45 Total Protein 7.1 g/dL (6.6-8.7) 01/25/23 10:45 Albumin 3.9 g/dL (3.5-5.2) 01/25/23 10:45 Globulin 3.2 g/dL (1.3-4.6) 01/25/23 10:45 Lipase 12 U/L (13-60) L 01/25/23 10:45 Procalcitonin 2.85 ng/mL (0-0.5) H 01/25/23 10:45 TSH Cancelled 01/25/23 17:11 Random Cortisol 11.01 ug/dL (2.47-19.5) 01/25/23 17:11 Urine Color Yellow (Yellow) 01/25/23 11:30 Urine Appearance Clear (CLEAR) 01/25/23 11:30 Urine pH 5 (5-7) 01/25/23 11:30 Ur Specific [place] 1.015 (1.005-1.030) 01/25/23 11:30 Urine Protein Neg (Negative) 01/25/23 11:30 Urine Glucose (UA) 2+ (Normal) H 01/25/23 11:30 Urine Ketones 1+ (Negative) H 01/25/23 11:30 Urine Blood Neg (Negative) 01/25/23 11:30 Urine Nitrate Negative (Negative) 01/25/23 11:30 Urine Bilirubin Neg (Negative) 01/25/23 11:30 Urine Urobilinogen Norm mg/dL (Negative) 01/25/23 11:30 Ur Leukocyte Esterase Negative (Negative) 01/25/23 11:30 Urine Osmolality 290 mOsm/kg (50-1200) 01/25/23 17:18 Ur Random Sodium 14 mmol/L 01/25/23 17:18 Vancomycin Trough 13.5 ug/mL (10-15) 01/28/23 10:30 Urine Opiates Screen Positive ng/mL (Negative) H 01/25/23 11:30 Ur Barbiturates Screen Negative ng/mL (Negative) 01/25/23 11:30 Ur Phencyclidine Scrn Negative ng/mL (Negative) 01/25/23 11:30 Ur Amphetamines Screen Negative ng/mL (Negative) 01/25/23 11:30 U Benzodiazepines Scrn Positive ng/mL (Negative) H 01/25/23 11:30 Urine Cocaine Screen Negative ng/mL (Negative) 01/25/23 11:30 U Marijuana (THC) Screen Negative ng/mL (Negative) 01/25/23 11:30 Ethyl Alcohol < 10 mg/dL (0-10) 01/25/23 10:45 SARS-CoV-2 Ag (Rapid) Positive (Negative) H 01/25/23 10:45 Vitals Last Vital Signs Temp 97.8 F 01/29/23 07:39 Pulse 79 01/29/23 07:39 Resp 16 01/29/23 07:39 BP 144/83 01/29/23 07:39 Pulse Ox 83 L 01/29/23 09:48 O2 Del Method High Flow Nasal Cannula 01/29/23 08:00 O2 Flow Rate 6 01/29/23 09:48 FiO2 40 01/27/23 13:40 Discharge Plan Discharge Patient Disposition: Home Condition: Stable Prescriptions: New albuterol sulfate 90 mcg/actuation HFA aerosol inhaler 2 inh inhalation Q8H PRN (Reason: shortness of breath or wheezing) Qty: 6.7 0RF levofloxacin 750 mg tablet 750 mg PO DAILY 7 Days Qty: 7 0RF Continued Lantus Solostar U-100 Insulin 100 unit/mL (3 mL) insulin pen 66 unit SUBCUT BEDTIME hydrocodone-acetaminophen 10-325 mg tablet 1 tab PO TID PRN (Reason: Pain) clonazepam 2 mg tablet 2 mg PO BID Qty: 60 1RF (DME) OneTouch Ultra Test Strip See Rx Instructions .Route Qty: 120 5RF Rx Instructions: As directed (DME) insulin syringe-needle U-100 [Advocate Syringes] 1 mL 30 gauge x 5/16 syringe See Rx Instructions .Route Qty: 300 3RF Rx Instructions: As directed (DME) FreeStyle Isiah 2 [place] Misc See Rx Instructions .Route Qty: 1 0RF Rx Instructions: As directed (DME) FreeStyle Isiah 2 Sensor Kit See Rx Instructions .Route Qty: 6 0RF Rx Instructions: As directed (DME) pen needle, diabetic [BD Dolores 2nd Gen Pen Needle] 32 gauge x 5/32 needle See Rx Instructions .ROUTE .COMPLEX Qty: 400 4RF Dose Instruction: USE UP TO 4 TIMES DAILY Rx Instructions: USE UP TO 4 TIMES DAILY insulin lispro [Humalog KwikPen Insulin] 100 unit/mL insulin pen See Rx Instructions .ROUTE .COMPLEX Qty: 15 5RF Dose Instruction: INJECT 20 UNITS SUBCUTANEOUSLY THREE TIMES DAILY WITH MEALS Rx Instructions: SLIDING SCALE SUBCUTANEOUSLY THREE TIMES DAILY WITH MEALS escitalopram oxalate 10 mg tablet 20 mg PO QAM Qty: 90 1RF atorvastatin [Lipitor] 40 mg Tablet 40 mg PO BEDTIME gabapentin 600 mg tablet 600 mg PO TID levothyroxine 100 mcg Tablet 100 mcg PO QAM lisinopril 40 mg tablet 40 mg PO QAM Fish Oil 120-180 mg Capsule 1 cap PO QAM tizanidine 4 mg tablet 4 mg PO BID PRN (Reason: Muscle Spasm) metoprolol succinate 25 mg tablet extended release 24 hr 25 mg PO BID naloxone 4 mg/actuation spray,non-aerosol See Rx Instructions .ROUTE .COMPLEX Rx Instructions: intranasally DIRECTED NEEDED Discontinued nitrofurantoin monohyd/m-cryst [Macrobid] 100 mg capsule 100 mg PO Q12H 7 Days Qty: 14 0RF Rx Instructions: FOR 7 DAYS (RX FILLED 01/20/23) must administer with a meal/food prazosin 2 mg capsule 2 mg PO BEDTIME Qty: 90 0RF ibuprofen 800 mg tablet 800 mg PO TID PRN (Reason: Pain) amitriptyline 150 mg tablet 150 mg PO BEDTIME Discharge Orders: Discharge Order (Routine); Ordered 01/30/23 Ordered By: Pedro Mackay Other Ambulatory Orders: DME: Oxygen (Order) Location: None Selected Ordered By: Pedro Mackay Referrals: Cyrus Vigil DO [Primary Care Provider] - 7-10 days Discharge Diet: Cardiac Discharge Activity: Increase activity as tolerated Patient Instructions: Opioid Safety Discharge Attestations Time Spent in Discharge Care*: greater than 30 min Quality Metrics Clinical Quality Measures [ No reported AMI, CVA or VTE this stay] Coding Level of Care Code Acute Code for Chg Fwd Diagnoses Fever R50.9 COVID-19 U07.1 Acute hyponatremia E87.1 Acute respiratory failure with hypoxia J96.01 OCD (obsessive compulsive disorder) F42.9 Insomnia G47.00 Morbid obesity E66.01 Generalized anxiety disorder F41.1 Diabetes mellitus E11.9
[2023-01-30 09:45] VITALS: PULSE 81; RESP 18; O2SAT 94
[2023-01-30 09:46] VITALS: O2SAT 88; O2SAT 94
--- NOTE | 2023-01-30 09:51 | PC.NURSE ---
This nurse called son, Fausto, to inform him that pt has discharge orders in and she will be discharging on 4L O2 determined by the most recent home O2 eval. Fausto didn't answer. Left a voicemail.
--- NOTE | 2023-01-30 10:01 | PC.NURSE ---
This nurse obtained a verbal request to call patients father, Ajit, for her at [phone] to inform him that she was being discharged stating You have to call, because I'm a big fat liar and he won't believe me. Ajit expresses understanding and says he will head this way in about 15-20mins. Fausto, patients son returned my phone call and expressed understanding of pt being discharged on 4L with Ajit picking her up.
--- NOTE | 2023-01-30 10:02 | PC.NURSE ---
THIS NURSE DISCONTINUED PATIENTS MIDLINE. CATHETER INTACT.
--- NOTE | 2023-01-30 11:10 | PC.SOCIAL ---
IMM Update pg 2 of IMM updated and reviewed w/ patient. Copy provided and Copy in chart dated, and initialed.
== END 2023-01-30 10:47 | disposition home or self-care (01) | DRG 177 ==
LOC: ER 13:11 → ICU 13:21 → MEDSURG 01-28 20:19
PROVIDERS: Hospitalist; Admitting Provider Internal Medicine; Emergency Provider Emergency Medicine; PCP Family Medicine; Visit Provider Internal Medicine
DX: U07.1 COVID-19 (principal); J96.01 Acute respiratory failure with hypoxia; E87.1 Hypo-osmolality and hyponatremia; N39.0 Urinary tract infection, site not specified; N17.9 Acute kidney failure, unspecified; Z68.41 Body mass index [BMI] 40.0-44.9, adult; F33.9 Major depressive disorder, recurrent, unspecified; B96.20 Unspecified Escherichia coli [E. coli] as the cause of diseases classified elsewhere; B95.1 Streptococcus, group B, as the cause of diseases classified elsewhere; Z79.4 Long term (current) use of insulin; Z79.891 Long term (current) use of opiate analgesic; F43.12 Post-traumatic stress disorder, chronic; E13.22 Other specified diabetes mellitus with diabetic chronic kidney disease; I12.9 Hypertensive chronic kidney disease with stage 1 through stage 4 chronic kidney disease, or unspecified chronic kidney disease; E13.40 Other specified diabetes mellitus with diabetic neuropathy, unspecified; E13.65 Other specified diabetes mellitus with hyperglycemia; N18.30 Chronic kidney disease, stage 3 unspecified; F41.1 Generalized anxiety disorder; E78.5 Hyperlipidemia, unspecified; E03.9 Hypothyroidism, unspecified; E86.0 Dehydration; E66.01 Morbid (severe) obesity due to excess calories; G47.00 Insomnia, unspecified; F42.9 Obsessive-compulsive disorder, unspecified; F17.210 Nicotine dependence, cigarettes, uncomplicated
CPT/HCPCS: 36415; 36416; 36573; 36592; 36600; 51702; 70450; 71045; 71275; 73030; 80048; 80053; 80202; 80306; 80307; 81003; 82533; 82803; 82962; 83605; 83690; 83735; 83880; 83935; 84100; 84145; 84300; 84443; 84484; 84550; 85025; 85378; 85730; 86140; 87040; 87070; 87205; 87426; 87641; 93005; 93308; 94640; 94664; 94760; 96361; 96372; 96374; 96376; 99204; 99285; C1751; J0248; J1650; J1815; J1940; J2405; J3370; J3475; J7030; J7060; J8540; Q3014; Q9967

== ENCOUNTER → 2023-02-25 12:20 | Outpatient (BNVA) | payer MEDICARE, MEDICAID, SELFPAY | PROVIDERS: PCP Family Medicine; Visit Provider Family Medicine | DX: E87.1 Hypo-osmolality and hyponatremia (principal); Z09 Encounter for follow-up examination after completed treatment for conditions other than malignant neoplasm; J96.01 Acute respiratory failure with hypoxia; R05.9 Cough, unspecified | CPT/HCPCS: 80048 ==

== ENCOUNTER → 2023-04-10 13:14 | Outpatient (BNVA) | payer MEDICARE, MEDICAID, SELFPAY | PROVIDERS: PCP Family Medicine; Visit Provider Specialist | DX: G43.711 Chronic migraine without aura, intractable, with status migrainosus (principal) | CPT/HCPCS: 64615; 95911; J0585 ==

== ENCOUNTER → 2023-07-10 14:20 | Outpatient (BNVA) | payer MEDICARE, MEDICAID, SELFPAY | PROVIDERS: PCP Family Medicine; Visit Provider Specialist | DX: G43.711 Chronic migraine without aura, intractable, with status migrainosus (principal); E11.40 Type 2 diabetes mellitus with diabetic neuropathy, unspecified; Z79.4 Long term (current) use of insulin | CPT/HCPCS: 64615; 99213; J0585 ==

== ENCOUNTER → 2023-08-05 12:14 | Outpatient (BNVA) | payer MEDICARE, MEDICAID, SELFPAY | PROVIDERS: PCP Family Medicine; Visit Provider Family Medicine | DX: E03.9 Hypothyroidism, unspecified (principal); I10 Essential (primary) hypertension; R42 Dizziness and giddiness; E87.1 Hypo-osmolality and hyponatremia | CPT/HCPCS: 80053; 84443; 85025 ==

== ENCOUNTER → 2023-10-30 12:38 | Outpatient (BNVA) | payer MEDICARE, SELFPAY | PROVIDERS: PCP Family Medicine; Visit Provider Specialist | DX: G43.711 Chronic migraine without aura, intractable, with status migrainosus (principal); E11.40 Type 2 diabetes mellitus with diabetic neuropathy, unspecified; Z79.4 Long term (current) use of insulin | CPT/HCPCS: 64615; J0585 ==

== ENCOUNTER → 2024-01-20 13:38 | Outpatient (BNVA) | payer MEDICARE, SELFPAY | PROVIDERS: PCP Family Medicine; Visit Provider Family Medicine | DX: R42 Dizziness and giddiness (principal); E87.1 Hypo-osmolality and hyponatremia; E87.5 Hyperkalemia; E03.9 Hypothyroidism, unspecified | CPT/HCPCS: 80053; 84443; 85025 ==

== ENCOUNTER → 2024-03-30 09:54 | Outpatient (BNVA) | payer MEDICARE, SELFPAY | PROVIDERS: PCP Family Medicine; Visit Provider Family Medicine | DX: E11.40 Type 2 diabetes mellitus with diabetic neuropathy, unspecified (principal); E87.1 Hypo-osmolality and hyponatremia | CPT/HCPCS: 80048; 84443 ==

== ENCOUNTER → 2024-04-23 14:52 | Outpatient (BNVA) | payer MEDICARE, SELFPAY | PROVIDERS: PCP Family Medicine; Visit Provider Specialist | DX: G43.711 Chronic migraine without aura, intractable, with status migrainosus (principal); E11.40 Type 2 diabetes mellitus with diabetic neuropathy, unspecified | CPT/HCPCS: 64615; J0585 ==

== ENCOUNTER → 2024-07-30 10:17 | Outpatient (BNVA) | payer MEDICARE, SELFPAY | PROVIDERS: PCP Family Medicine; Visit Provider Specialist | DX: G43.711 Chronic migraine without aura, intractable, with status migrainosus (principal) | CPT/HCPCS: 64615; J0585; J9999 ==

== ENCOUNTER 2024-09-06 12:20 | Outpatient (CLI) | payer MEDICARE, SELFPAY ==
--- NOTE | 2024-09-06 12:27 | XRR_ITS ---
PROCEDURE INFORMATION: Exam: XR Right Shoulder Exam date and time: 09/06/2024 12:41 PM Age: 48 years old Clinical indication: Pain; Shoulder; Right; Additional info: M25.811 - other specified joint disorders, right shoulder TECHNIQUE: Imaging protocol: Radiologic exam of the right shoulder. Views: 2 or more views. COMPARISON: CR XR chest 1V portable [id number] 01/27/2023 8:47 AM FINDINGS: Bones/joints: No fracture or dislocation is seen about the right shoulder. No abnormal widening or separation of the right AC joint. No acute osseous abnormality. No abnormal soft tissue calcification is seen about the shoulder joint. Soft tissues: No significant soft tissue abnormality. XR/XR shoulder RT min 2V* [id number] IMPRESSION: No acute findings.
== END 2024-09-06 12:21 | disposition home or self-care (01) ==
LOC: RAD 12:22
PROVIDERS: PCP Family Medicine; Visit Provider Clinical Nurse Specialist Adult Health
DX: M25.811 Other specified joint disorders, right shoulder (principal)
CPT/HCPCS: 73030

== ENCOUNTER → 2024-11-25 07:57 | Outpatient (BNVA) | payer MEDICARE, SELFPAY | PROVIDERS: PCP Family Medicine; Visit Provider Specialist | DX: G43.711 Chronic migraine without aura, intractable, with status migrainosus (principal) | CPT/HCPCS: 64615; J0585; J9999 ==

== ENCOUNTER 2025-01-24 12:45 | Outpatient (CLI) | payer MEDICARE, SELFPAY ==
--- NOTE | 2025-01-24 12:53 | XR_ITS ---
WS: [id number] XR hip LT 2-3V wo/w pel* [id number] REASON FOR EXAM: M25.552 - Pain in left hip FINDINGS: No fracture or focal bone lesion. Joint spaces intact and relatively well preserved. Minimal subchondral sclerosis of the acetabulum. Minimal osteophytosis of the femoral head. XR/XR hip LT 2-3V wo/w pel* [id number] IMPRESSION: Minimal osteoarthritis of the left hip as above.
== END 2025-01-24 12:46 | disposition home or self-care (01) ==
PROVIDERS: PCP Family Medicine; Visit Provider Family Medicine
DX: M16.12 Unilateral primary osteoarthritis, left hip (principal); M25.552 Pain in left hip
CPT/HCPCS: 73502

== ENCOUNTER 2025-02-15 13:38 | Outpatient (CLI) | payer MEDICARE, SELFPAY ==
--- NOTE | 2025-02-15 13:45 | MR_ITS ---
WS: [id number] MRI LEFT HIP WITHOUT CONTRAST. COMPARISON: Radiograph 01/24/2025 Multiplanar, multisequence imaging is performed without contrast. History: LEFT hip pain for 3 weeks. No acute marrow edema or fracture. Normal position of the femoral heads within the acetabuli. There is no marrow edema. No joint effusion. There is a small amount of increased T2 signal in the gluteus medius tendon at the greater trochanter. There is no fluid collection or tear. No bursitis. Insertion site of the gluteus medius tendon over the greater trochanter. No muscle atrophy or asymmetry. There is no fluid within the pelvis. Visualized urinary bladder is normal. No adenopathy or mass. No labral tears. MR/MR hip LT con* [id number] IMPRESSION: 1. Mild sprain insertion site of the gluteus medius tendon at the greater troc hanter. 2. No bursitis. 3. No muscle atrophy or edema.
== END 2025-02-15 13:39 | disposition home or self-care (01) ==
PROVIDERS: PCP Family Medicine; Visit Provider Family Medicine
DX: M25.552 Pain in left hip (principal); S76.012A Strain of muscle, fascia and tendon of left hip, initial encounter; X58.XXXA Exposure to other specified factors, initial encounter
CPT/HCPCS: 73721

== ENCOUNTER → 2025-02-21 12:57 | Outpatient (BNVA) | payer MEDICARE, SELFPAY | PROVIDERS: PCP Family Medicine; Visit Provider Specialist | DX: M25.552 Pain in left hip (principal); E66.01 Morbid (severe) obesity due to excess calories; Z68.41 Body mass index [BMI] 40.0-44.9, adult | CPT/HCPCS: 73502; 99204 ==

== ENCOUNTER → 2025-03-03 12:11 | Outpatient (BNVA) | payer MEDICARE, SELFPAY | PROVIDERS: PCP Family Medicine; Visit Provider Specialist | DX: G43.711 Chronic migraine without aura, intractable, with status migrainosus (principal) | CPT/HCPCS: 64615; J0585; J9999 ==